=== PATIENT | female | born 1930 | race Caucasian/White ===

== ENCOUNTER 2016-10-10 18:09 | Inpatient (IN) | payer OTHER ==
[~2016-10-10] VITALS: Ht 142.2 cm; Wt 60.3 kg
[~2016-10-10 18:09] MED LIST: ASCO500T16 PO; CHOL100010 PO; CLC100 PO; CYAN500T PO; FERR1TAB13 PO; FURO-85 PO; MULT-506 PO; PANTPAK PO; POTA1POW PO; TOPI25TA99 PO; TYLER650 PO
[2016-10-10] MEDS ORDERED: FENTANYL CITRATE INJ 50 MCG/1 ML 2 ML VIAL IV STA (18:21)
[2016-10-10] MEDS ORDERED: ONDANSETRON INJ 2 MG/ML 2 ML VIAL IV STA (18:21)
[2016-10-10] MEDS ORDERED: FENTANYL 50 MCG/HR TDSY ONE (18:23)
[2016-10-10 18:36] LABS: BASO % 0.3 %; BASO ABS # 0.01 K/uL (0-0.2); COMPLETE YES; IG% 0.7 %; LYMPH ABS # 1.46 K/uL (1.2-3.4); MEAN CELL VOLUME 81.6 fL (80-100); MEAN CORPUSCULAR HEMOGLOBIN 26.5 pg (25-34); MEAN CORPUSCULAR HGB CONC 32.5 g/dl (32-36); MEAN PLATELET VOLUME 11.8 fL (7.4-10.4); MONO % 10.2 %; NEUT % 37.8 %; PLATELET COUNT 234 K/uL (130-400); RED BLOOD COUNT 3.92 M/uL (4.2-5.4); WHITE BLOOD COUNT 3.04 K/uL (4.8-10.8)
[2016-10-10] MEDS ORDERED: CARB0.5D28 OPB ×2 (18:41)
[2016-10-10] MEDS ORDERED: VNTHFA/IN INH (18:41)
[2016-10-10] MEDS ORDERED: MCRK20 PO (18:44)
[2016-10-10 18:47] LABS: PARTIAL THROMBOPLASTIN RATIO 0.9; PROTHROMBIN TIME (PATIENT) 11.1 SECONDS (9.0-12.0)
[2016-10-10 18:59] LABS: BLOOD UREA NITROGEN 33 mg/dl (7-18); BUN/CREATININE RATIO 16.7 (10-20); CALCIUM 8.7 mg/dl (8.5-10.1); CARBON DIOXIDE 26 mmol/L (21-32); CHLORIDE 110 mmol/L (98-107); GLUCOSE 148 mg/dl (70-99); SODIUM 146 mmol/L (136-145)
--- NOTE | 2016-10-10 19:06 | DIAGNOSTIC IMAGING REPORT ---
SINGLE VIEW CHEST CLINICAL HISTORY: Atypical chest pain. Dyspnea. FINDINGS: An AP, portable, upright chest radiograph is compared to study dated 07/28/2016. Correlation is made with chest CT dated 08/11/2016. The examination is degraded by portable technique and patient rotation. The cardiomediastinal silhouette is unremarkable. There is evidence carotid calcification of the thoracic aorta. The mitral annulus is densely calcified. Chronic interstitial thickening is similar to previous, as is elevation of left hemidiaphragm. There is no airspace consolidation or pleural effusion. No pneumothorax is seen. The skeletal structures are osteopenic. Degenerative change and scoliosis are noted in the thoracic spine. IMPRESSION: No acute cardiopulmonary abnormality. Electronically signed by: Quang Gomez M.D. 10/10/2016 7:04 PM Dictated Date/Time: 10/10/2016 7:03 PM
[2016-10-10] MEDS ORDERED: ONDANSETRON INJ 2 MG/ML 2 ML VIAL IV PRN (20:30)
[2016-10-10] MEDS ORDERED: NITROGLYCERIN 0.4 MG SL PER TAB CHARGE SL PRN (20:30)
[2016-10-10] MEDS ORDERED: IV FLUIDS COMPLETED PRN (20:45)
[2016-10-10 21:00] VITALS: BP 130/75; PULSE 90; TEMP 36.7; O2SAT 100; Ht 142.2 cm; Wt 60.3 kg
[2016-10-10] MEDS ORDERED: HEPARIN SOD 5000 UNIT/0.5 ML CARP SQ SCH (21:00)
[2016-10-10] MEDS: DOCUSATE SODIUM 100 MG CAP PO SCH (21:59)
[2016-10-10] MEDS: FERROUS SULFATE 325 MG TAB PO SCH (21:59)
[2016-10-10] MEDS: TOPIRAMATE 25 MG TAB PO SCH (22:00)
[2016-10-10] MEDS: CHOLECALCIFEROL 1000 INTER.UNIT TAB PO SCH (22:00)
[2016-10-10] MEDS: MULTIVITAMIN TAB PO SCH (22:00)
--- NOTE | 2016-10-10 22:07 | History and Physical ---
History & Physical Date & Time of Service: Oct 10, 2016 at 21:50 Chief Complaint: Syncope, Chest Pain Primary Care Physician: Van Ott M.D. History of Present Illness 85 year old female who presents to the ER for chest pain and syncopal event. During my time with the patient, she changes her history multiple times; therefore I do not think she is a good historian. Her roommate entered the room and reports that patient was walking down the finn when she reported she didn't feel good. She also reported chest pain and that she couldn't breathe. He reports she then passed out on the couch. He reports she was unconscious for about one hour until EMS arrived. He reports she was breathing. No seizure like activity or loss of bowel or bladder function. Patient mentions an episode of chest pain two night ago while sleeping. She reports she was awoken from sleep with chest pressure. She reports it lasted for about an hour and resolved on its own. She has chronic lower extremity edema which is unchanged. She denies orthopnea. No abdominal pain, nausea, vomiting, or diarrhea. She denies recent illnesses, fever, or chills. No urinary symptoms. In the ER, initial troponin is negative and EKG does not show any acute ST changes. Past Medical/Surgical History Medical Problems: (1) CKD (chronic kidney disease), stage IV Status: Chronic (2) Diabetes mellitus type 2 Status: Chronic (3) Dyslipidemia Status: Chronic (4) Gastroesophageal reflux disease Status: Chronic (5) Hypothyroidism Status: Chronic (6) PAF (paroxysmal atrial fibrillation) Permanent Comment: chart history of Status: Chronic (7) Parkinson's disease Status: Chronic Surgical Problems: (1) History of appendectomy Status: Resolved (2) History of cholecystectomy Status: Resolved (3) History of mastectomy Permanent Comment: L breast 1950 Status: Resolved Family History FH: cancer MOTHER Stroke SISTER Social History Smoking Status: Former Smoker Alcohol Use: none Housing status: lives with roommate Immunizations History of Influenza Vaccine: Yes Influenza Vaccine Date: Jun 01, 2016 History of Tetanus Vaccine?: Yes Tetanus Immunization Date: Jul 21, 2008 History of Pneumococcal: Yes Pneumococcal Date: Aug 30, 2014 Multi-Drug Resistant Organisms History of MDRO: No Allergies Coded Allergies: Garlic (Verified Allergy, Severe, "raw garlic" airway closes, 08/10/16) Shellfish (Verified Allergy, Severe, FISH = "HIVES" AND "CANT BREATH", ) REPORTS "SEAFOOD" ALLERGY Macrolides and Ketolides (Verified Allergy, Intermediate, ZITHROMAX-HIVES , 08/10/16) Amitriptyline (Verified Allergy, Unknown, _, 08/10/16) Aspirin (Verified Allergy, Unknown, UNKNOWN, 08/10/16) Azithromycin (Verified Allergy, Unknown, HIVES, 08/10/16) Cephalosporins (Verified Allergy, Unknown, UNKNOWN, 08/10/16) [id number] Ethyl Esters (Verified Allergy, Unknown, hives, 08/10/16) Penicillins (Verified Allergy, Unknown, UNKNOWN, 08/10/16) Red Dye (Verified Allergy, Unknown, Unknown rxn, 08/10/16) Tricyclic Antidepressants (Verified Allergy, Unknown, _, 08/10/16) White Fish (Verified Allergy, Unknown, UNKNOWN- "SEAFOOD", 08/10/16) REPORTS "SEAFOOD" ALLERGY NSAIDs (Verified Adverse Reaction, Severe, NO NSAIDS PER MARTEN WISE 08/27, 08/10/16) Metoclopramide (Verified Adverse Reaction, Intermediate, PARKINSON'S RIGIDITY AND LIP TREMOR, 08/10/16) Erythromycin (Verified Adverse Reaction, Unknown, HEADACHE,NAUSEA, ) Home Medications Scheduled Albuterol Hfa (Ventolin Hfa), 2 PUFFS INH QID Ascorbic Acid (Ascorbic Acid), 500 MG PO DAILYBL Carboxymethylcellulose Sodium (Refresh Tears), 1 DROP OPB HS Cholecalciferol (Vitamin D), 1,000 INTER.UNIT PO QPM Cyanocobalamin (Vitamin B-12), 1,000 MCG PO DAILY Docusate Sodium (Docusate Sodium), 1 CAP PO HS Ferrous Sulfate (Kp Ferrous Sulfate), 1 TAB PO BID Furosemide (Lasix), 20 MG PO Q2D Multivitamin (Multivitamin), 1 TAB PO QPM Pantoprazole Sodium (Protonix), 40 MG PO DAILY Potassium Chloride (Klor-Con M20), 20 MEQ PO Q2D Topiramate (Topamax ), 25 MG PO BID Scheduled PRN Carboxymethylcellulose Sodium (Refresh Tears), 1 DROP OPB Q4H PRN for DRY EYES Review of Systems 10 point review of systems was completed with the pertinent positives and negatives noted per the HPI - noted patient likely poor historian Physical Exam Vital Signs Date Time Temp Pulse Resp B/P Pulse Ox O2 Delivery O2 Flow Rate FiO2 10/10/16 21:00 36.7 90 17 130/75 100 Room Air 10/10/16 20:45 77 20 126/70 96 Room Air 10/10/16 20:06 80 20 109/68 98 Room Air 10/10/16 18:21 79 10/10/16 18:09 36.6 80 22 114/70 100 Room Air 10/10/16 18:09 100 Room Air General Appearance: no apparent distress Head: normocephalic Eyes: normal inspection ENT: hearing grossly normal Neck: supple, no JVD Respiratory/Chest: lungs clear, normal breath sounds, no respiratory distress Cardiovascular: regular rate, rhythm, + pertinent finding (+2 edema BLLE) Abdomen/GI: normal bowel sounds, non tender, soft Extremities/Musculoskelatal: normal inspection, no calf tenderness Neurologic/Psych: no motor/sensory deficits, alert, normal mood/affect, oriented x 3 Skin: normal color, warm/dry Diagnostics Laboratory Results Results Past 24 Hours Test 10/10/16 18:25 10/10/16 18:28 10/10/16 21:41 Range/Units White Blood Count 3.04 4.8-10.8 K/uL Red Blood Count 3.92 4.2-5.4 M/uL Hemoglobin 10.4 12.0-16.0 g/dL Hematocrit 32.0 37-47 % Mean Corpuscular Volume 81.6 80-100 fL Mean Corpuscular Hemoglobin 26.5 25-34 pg Mean Corpuscular Hemoglobin Concent 32.5 32-36 g/dl Platelet Count 234 130-400 K/uL Mean Platelet Volume 11.8 7.4-10.4 fL Neutrophils (%) (Auto) 37.8 % Lymphocytes (%) (Auto) 48.0 % Monocytes (%) (Auto) 10.2 % Eosinophils (%) (Auto) 3.0 % Basophils (%) (Auto) 0.3 % Neutrophils # (Auto) 1.15 1.4-6.5 K/uL Lymphocytes # (Auto) 1.46 1.2-3.4 K/uL Monocytes # (Auto) 0.31 0.11-0.59 K/uL Eosinophils # (Auto) 0.09 0-0.5 K/uL Basophils # (Auto) 0.01 0-0.2 K/uL RDW Standard Deviation 55.3 36.4-46.3 fL RDW Coefficient of Variation 18.3 11.5-14.5 % Immature Granulocyte % (Auto) 0.7 % Immature Granulocyte # (Auto) 0.02 0.00-0.02 K/uL Prothrombin Time 11.1 9.0-12.0 SECONDS Prothromb Time International Ratio 1.0 0.9-1.1 Activated Partial Thromboplast Time 24.3 21.0-31.0 SECONDS Partial Thromboplastin Ratio 0.9 Sodium Level 146 136-145 mmol/L Potassium Level 4.0 3.5-5.1 mmol/L Chloride Level 110 98-107 mmol/L Carbon Dioxide Level 26 21-32 mmol/L Anion Gap 10.0 3-11 mmol/L Blood Urea Nitrogen 33 7-18 mg/dl Creatinine 2.00 0.60-1.20 mg/dl Estimated GFR () 25.9 Estimated GFR (Non- 22.4 BUN/Creatinine Ratio 16.7 10-20 Random Glucose 148 70-99 mg/dl Calcium Level 8.7 8.5-10.1 mg/dl Bedside Troponin I 0.000 0-0.045 ng/ml Bedside Glucose 136 70-90 mg/dl Diagnostic Radiology CXR IMPRESSION: No acute cardiopulmonary abnormality. Impression Assessment and Plan CHEST PAIN, SYNCOPE - admit to tele - initial troponin negative, EKG does not show any acute ST changes - continue to cycle cardiac enzymes, resting echo - hx abnormal stress that lead to cardiac cath 07/2012 that shows widely patent coronary arteries - noted allergy to ASA - monitor in tele for arrhythmias - consider PE - will get D. Dimer with next set of cardiac enzymes - as patient was recently started on Lasix, consider orthostasis - check orthostatic BPs and will hold for Lasix for now as renal functions are mildly worse - cardio consult, input appreciated CKD STAGE IV - prior baseline creat was in the mid 1's; recently started on Lasix for diastolic CHF and had noted worsening renal function - follows with nephro who advised to continue Lasix due to the amount of BLLE edema patient had - outpatient creat 1.7 -> 2.0 today; will hold Lasix CHRONIC DIASTOLIC CHF - appears euvolemic - echo 07/2016 - EF 60-65%, mild mitral regurgitation, trace tricuspid regurgitation, grade I diastolic dysfunction - holding Lasix as above MIGRAINES - continue Topamax DVT PROPHYLAXIS - SQ heparin CODE STATUS - Patient is a full code as per my discussion with her. DISPO - The patient will be placed as observation status for now until further work up is complete. VTE Prophylaxis VTE Risk Assessment Done? Y/N: Yes Risk Level: Moderate Note ATTENDING ADDENDUM Record reviewed. Patient interviewed and examined. Care coordinated with SUKHDEV Maria. Please refer to her documentation for patient's history. Briefly, 85 YO female with history of PAF, dyslipidemia, DM, and other problems. Presented to ED with CP, SOB, reported syncope, intermittent palpitations. CP seems to be related to emotional stress. EXAM: General- no acute distress VS- as noted Neck- no JVD Lungs- clear Heart- RRR, II/ sys murmur LSB, no gallop appreciated Abdomen- + BS, soft, nontender Extremities- 1+ pretibial edema, no calf tenderness Neuro- alert DATA: Troponin < 0.015. Other lab studies as noted. CXR - no acute process. EKG performed at 17:35 reviewed and demonstrated NSR at 77 / minute, J-point elevation V3-4. EKG performed at 18:01 reviewed and demonstrated NSR at 86 / minute, baseline artifact, ? slight ST elevation inferiorly, J-point elevation V3-4. EKG performed at 18:11 reviewed and demonstrated NSR at 74 / minute, baseline artifact, slight ST elevation aVF, J-point elevation V2-4. ASSESSMENT AND PLAN: Chest pain associated with emotional stress. EKG's as noted above. Cardiology was consulted for Heart Alert in ED. It was felt that the EKG changes were not significant. Check serial cardiac markers. Check D-dimer to screen for thromboembolic disease. Check echo. Consult Cardiology. Reported syncopal episode. History of PAF. Monitor for arrhythmias. Please refer to LISA Bella's documentation for discussion of other issues. Bairon Joseph MD .
[2016-10-10] MEDS ORDERED: INFLUENZA VIRUS QUAD VACCINE 0.5 ML SYR IM. ONE (23:00)
[2016-10-10] MEDS ORDERED: PNEUMOCOCCAL ADMINISTRATION CHARGE ONE (23:00)
[2016-10-10] MEDS ORDERED: INFLUENZA ADMINISTRATION CHARGE ONE (23:00)
[2016-10-10] MEDS ORDERED: PNEUMOCOCCAL POLYSACCHARIDES 25 MCG/0.5 ML VIAL/SYR IM. ONE (23:00)
[2016-10-10 23:49] VITALS: BP 124/70; PULSE 80; TEMP 36.9; O2SAT 100
[2016-10-10 23:50] VITALS: BP_SYST 125; BP_SYST 164; BP_DIAS 71; BP_DIAS 76
[2016-10-11] VITALS (8 sets, daily range): BP systolic 106–154; BP diastolic 62–78; PULSE 60–99; TEMP 36.5–36.7; O2SAT 93–100
[2016-10-11] MEDS ORDERED: HEPARIN IV LOW DOSE NO BOLUS SCH (01:23)
--- NOTE | 2016-10-11 01:24 | EMERGENCY ROOM VISIT NOTE ---
History Report prepared by Blake: Kaitlyn Stroud Under the Supervision of: Dr. Arsalan Adrian M.D. First contact with patient: 18:08 Chief Complaint: HEART ALERT Stated Complaint: CHEST PAIN, SOB History of Present Illness The patient is a 85 year old female who presents to the Emergency Room with complaints of persistent left sided chest pain that began around 1600 today. Per EMS, the patient woke up from a nap at that time with the pain. She describes the pain as squeezing. She told EMS that the pain radiated in to her neck. She also complained of shortness of breath and dizziness. En route, she was given 324 aspirin and a nitro spray with some relief. Her current discomfort is an 8/10 in severity. The patient notes that she had a heart attack 2 years ago and her symptoms were similar to what she has today. She did not have stents placed and is unsure if she had a catheterization. She is not on Plavix or aspirin. The patient has ankle swelling at baseline which is not worse than normal currently. Source of History: patient, EMS Onset: 1600 today Position: chest (left) Symptom Intensity: 8/10 Quality: other (squeezing) Timing: other (persistent) Modifying Factors (Relieving): other (nitro) Associated Symptoms: + SOB Note: Other symptoms: dizziness Review of Systems See HPI for pertinent positives & negatives. A total of 10 systems reviewed and were otherwise negative. Past Medical & Surgical Medical Problems: (1) CKD (chronic kidney disease), stage IV (2) Diabetes mellitus type 2 (3) Dyslipidemia (4) Gastroesophageal reflux disease (5) Hypothyroidism (6) PAF (paroxysmal atrial fibrillation) (7) Parkinson's disease Surgical Problems: (1) History of appendectomy (2) History of cholecystectomy (3) History of mastectomy Family History Patient reports no known family medical history. Social History Smoking Status: Never Smoker Alcohol Use: none Drug Use: none Marital Status: , in relationship Housing Status: lives with significant other Occupation Status: retired Current/Historical Medications Scheduled Albuterol Hfa (Ventolin Hfa), 2 PUFFS INH QID Ascorbic Acid (Ascorbic Acid), 500 MG PO DAILYBL Carboxymethylcellulose Sodium (Refresh Tears), 1 DROP OPB HS Cholecalciferol (Vitamin D), 1,000 INTER.UNIT PO QPM Cyanocobalamin (Vitamin B-12), 1,000 MCG PO DAILY Docusate Sodium (Docusate Sodium), 1 CAP PO HS Ferrous Sulfate (Kp Ferrous Sulfate), 1 TAB PO BID Furosemide (Lasix), 20 MG PO Q2D Multivitamin (Multivitamin), 1 TAB PO QPM Pantoprazole Sodium (Protonix), 40 MG PO DAILY Potassium Chloride (Klor-Con M20), 20 MEQ PO Q2D Topiramate (Topamax ), 25 MG PO BID Scheduled PRN Carboxymethylcellulose Sodium (Refresh Tears), 1 DROP OPB Q4H PRN for DRY EYES Allergies Coded Allergies: Garlic (Verified Allergy, Severe, "raw garlic" airway closes, 08/10/16) Shellfish (Verified Allergy, Severe, FISH = "HIVES" AND "CANT BREATH", ) REPORTS "SEAFOOD" ALLERGY Macrolides and Ketolides (Verified Allergy, Intermediate, ZITHROMAX-HIVES , 08/10/16) Amitriptyline (Verified Allergy, Unknown, _, 08/10/16) Aspirin (Verified Allergy, Unknown, UNKNOWN, 08/10/16) Azithromycin (Verified Allergy, Unknown, HIVES, 08/10/16) Cephalosporins (Verified Allergy, Unknown, UNKNOWN, 08/10/16) Dclcn-3-Fhcg Ethyl Esters (Verified Allergy, Unknown, hives, 08/10/16) Penicillins (Verified Allergy, Unknown, UNKNOWN, 08/10/16) Red Dye (Verified Allergy, Unknown, Unknown rxn, 08/10/16) Tricyclic Antidepressants (Verified Allergy, Unknown, _, 08/10/16) White Fish (Verified Allergy, Unknown, UNKNOWN- "SEAFOOD", 08/10/16) REPORTS "SEAFOOD" ALLERGY NSAIDs (Verified Adverse Reaction, Severe, NO NSAIDS PER MARTEN WISE 08/27, 08/10/16) Metoclopramide (Verified Adverse Reaction, Intermediate, PARKINSON'S RIGIDITY AND LIP TREMOR, 08/10/16) Erythromycin (Verified Adverse Reaction, Unknown, HEADACHE,NAUSEA, ) Physical Exam Vital Signs Date Time Temp Pulse Resp B/P Pulse Ox O2 Delivery O2 Flow Rate FiO2 10/10/16 20:06 80 20 109/68 98 Room Air 10/10/16 18:21 79 10/10/16 18:09 36.6 80 22 114/70 100 Room Air 10/10/16 18:09 100 Room Air Physical Exam Constitutional: Vital signs reviewed. Eyes: Pupils are equal round reactive to light. Conjunctiva are noninjected. ENT: Pharynx is clear without erythema or exudate. Mucous membranes are moist. Neck supple without meningeal signs. Respiratory: Clear to auscultation bilaterally. Breath sounds are equal bilaterally. Cardiovascular: Regular rate and rhythm. No rubs or gallops. GI: Soft, nondistended, mild left upper quadrant tenderness. Bowel sounds are present. Musculoskeletal: Non-pitting edema to the lower extremities without tenderness. No lower extremity tenderness. Integumentary: No cyanosis. Neurological: The patient is awake and alert. No focal deficits. Psychiatric: Normal affect. Medical Decision & Procedures ER Provider Diagnostic Interpretation: X-ray results as stated below per interpretation by me and the radiologist: SINGLE VIEW CHEST CLINICAL HISTORY: Atypical chest pain. Dyspnea. FINDINGS: An AP, portable, upright chest radiograph is compared to study dated 07/28/2016. Correlation is made with chest CT dated 08/11/2016. The examination is degraded by portable technique and patient rotation. The cardiomediastinal silhouette is unremarkable. There is evidence carotid calcification of the thoracic aorta. The mitral annulus is densely calcified. Chronic interstitial thickening is similar to previous, as is elevation of left hemidiaphragm. There is no airspace consolidation or pleural effusion. No pneumothorax is seen. The skeletal structures are osteopenic. Degenerative change and scoliosis are noted in the thoracic spine. IMPRESSION: No acute cardiopulmonary abnormality. Electronically signed by: Quang Gomez M.D. 10/10/2016 7:04 PM Dictated Date/Time: 10/10/2016 7:03 PM Laboratory Results 10/10/16 18:25 Red Blood Count 3.92, Mean Corpuscular Volume 81.6, Mean Corpuscular Hemoglobin 26.5, Mean Corpuscular Hemoglobin Concent 32.5, Mean Platelet Volume 11.8, Neutrophils (%) (Auto) 37.8, Lymphocytes (%) (Auto) 48.0, Monocytes (%) (Auto) 10.2, Eosinophils (%) (Auto) 3.0, Basophils (%) (Auto) 0.3, Neutrophils # (Auto ) 1.15, Lymphocytes # (Auto) 1.46, Monocytes # (Auto) 0.31, Eosinophils # (Auto ) 0.09, Basophils # (Auto) 0.01 10/10/16 18:25 Test 10/10/16 00:54 10/10/16 18:25 10/10/16 18:28 Creatine Kinase MB 0.6 ng/ml (0.5-3.6) Troponin I < 0.015 ng/ml (0-0.045) White Blood Count 3.04 K/uL (4.8-10.8) Red Blood Count 3.92 M/uL (4.2-5.4) Hemoglobin 10.4 g/dL (12.0-16.0) Hematocrit 32.0 % (37-47) Mean Corpuscular Volume 81.6 fL (80-100) Mean Corpuscular Hemoglobin 26.5 pg (25-34) Mean Corpuscular Hemoglobin Concent 32.5 g/dl (32-36) Platelet Count 234 K/uL (130-400) Mean Platelet Volume 11.8 fL (7.4-10.4) Neutrophils (%) (Auto) 37.8 % Lymphocytes (%) (Auto) 48.0 % Monocytes (%) (Auto) 10.2 % Eosinophils (%) (Auto) 3.0 % Basophils (%) (Auto) 0.3 % Neutrophils # (Auto) 1.15 K/uL (1.4-6.5) Lymphocytes # (Auto) 1.46 K/uL (1.2-3.4) Monocytes # (Auto) 0.31 K/uL (0.11-0.59) Eosinophils # (Auto) 0.09 K/uL (0-0.5) Basophils # (Auto) 0.01 K/uL (0-0.2) RDW Standard Deviation 55.3 fL (36.4-46.3) RDW Coefficient of Variation 18.3 % (11.5-14.5) Immature Granulocyte % (Auto) 0.7 % Immature Granulocyte # (Auto) 0.02 K/uL (0.00-0.02) Prothrombin Time 11.1 SECONDS (9.0-12.0) Prothromb Time International Ratio 1.0 (0.9-1.1) Activated Partial Thromboplast Time 24.3 SECONDS (21.0-31.0) Partial Thromboplastin Ratio 0.9 Anion Gap 10.0 mmol/L (3-11) Estimated GFR () 25.9 Estimated GFR (Non- 22.4 BUN/Creatinine Ratio 16.7 (10-20) Calcium Level 8.7 mg/dl (8.5-10.1) Bedside Troponin I 0.000 ng/ml (0-0.045) Laboratory results as reviewed by me. Medications Administered Medications (Trade) Dose Ordered Sig/Mayte Route Start Time Stop Time Status Last Admin Dose Admin Fentanyl Citrate (Fentanyl Inj) 25 mcg NOW STAT IV 10/10/16 18:21 10/10/16 18:23 DC 10/10/16 18:28 25 MCG Ondansetron HCl (Zofran Inj) 4 mg NOW STAT IV 10/10/16 18:21 10/10/16 18:23 DC 10/10/16 18:29 4 MG ECG Indication: chest pain Rate (beats per minute): 74 Rhythm: normal sinus Findings: no ectopy, other (peaked T waves in the precoridal leads, no ST elevation) Comparison ECG Date: July 2016 Change: no significant change ED Course 1806: The patient was evaluated in room B1. A complete history and physical exam was performed. 1819: Dr. Saunders - Cardiology reviewed the EKGs. Heart alert was cancelled. Ordered Fentanyl Inj 25 mcg IV, Zofran Inj 4 mg IV. 1838: I reassessed the patient. She said that the pain is much better. I discussed test results so far with her. She agrees with the treatment plan. 1917: I discussed the case with Dr. Jake Arreola [facility] Hospitalist. The patient will be evaluated for further management. Medical Decision This is an 85-year-old female who presents with chest pain. Differential diagnosis includes SC, unstable angina, pleurisy, pneumonia, GERD. I did perform a limited focused review of portions of the patient's old chart on the electronic medical record. She was here in July for abdominal pain and shortness of breath. She was discharged home after evaluation. The prehospital EKG was shown to me by the monitor clearing distribution clerk. There were some ST elevations in the inferior leads and I was told that the patient was having active chest pain. I therefore called a heart alert.I did evaluate the patient immediately on arrival as noted above. She is complaining of 8 out of 10 squeezing chest pain rating to her jaw. The patient was placed on a continuous rn cardiac rehab. I did order and personally review the patient's 12-lead EKG and chest x-ray as described above. Her twelve-lead EKG does not demonstrate any ST elevations. Dr. Saunders did review the EKGs and felt that she did not meet criteria for emergent catheterization. I did treat the patient with fentanyl IV as well as Zofran IV after which her chest pain completely resolved. I did order and review the patient's blood work as noted in the electronic medical record. She has chronic anemia and elevation of her creatinine. Troponin is negative. I did reassess the patient. I did discuss the test results with her. I did recommend hospitalization for further evaluation. I did discuss the case with the hospitalist and case finishing machine adjuster. Consults Time Called: 1900 Consulting Physician: Dr. Jake Silva Hospitalist Returned Call: 1917 I discussed the case with him. The patient will be evaluated for further management. Impression Primary Impression: Precordial chest pain Scribe Attestation The scribe's documentation has been prepared under my direct and personally reviewed by me in its entirety. I confirm that the note above accurately reflects all work, treatment, procedures, and medical decision making performed by me. Departure Information Dispostion Being Evaluated By Hospitalist Van Arellano M.D. (PCP) Patient Instructions My [facility]
[2016-10-11] MEDS: HEPARIN 25,000 UNIT/500ML D5W 500 ML IV PRN ×2 (02:03→09:52)
[2016-10-11 06:27] LABS: HEMATOCRIT 28.2 % (37-47); MEAN CELL VOLUME 81.3 fL (80-100); MEAN CORPUSCULAR HEMOGLOBIN 26.2 pg (25-34); MEAN CORPUSCULAR HGB CONC 32.3 g/dl (32-36); MEAN PLATELET VOLUME 11.7 fL (7.4-10.4); PLATELET COUNT 189 K/uL (130-400); RED BLOOD COUNT 3.47 M/uL (4.2-5.4); WHITE BLOOD COUNT 3.75 K/uL (4.8-10.8)
--- NOTE | 2016-10-11 06:42 | DIAGNOSTIC IMAGING REPORT ---
BILATERAL LOWER EXTREMITY VENOUS DOPPLER CLINICAL HISTORY: Elevated D-dimer COMPARISON STUDY: Bilateral lower extremity venous Doppler July 28, 2016. TECHNIQUE: Sonography of the deep venous system of the bilateral lower extremities was performed. Compression and augmentation were evaluated. FINDINGS: The bilateral common femoral, superficial femoral and popliteal veins were compressible. Augmentation was normal. Flow was shown within the deep calf vessels. IMPRESSION: No evidence of deep venous thrombus within the bilateral lower extremities. Electronically signed by: Ky Bentley M.D. 10/11/2016 6:40 AM Dictated Date/Time: 10/11/2016 6:40 AM
[2016-10-11 06:51] LABS: BLOOD UREA NITROGEN 32 mg/dl (7-18); BUN/CREATININE RATIO 18.9 (10-20); CALCIUM 8.9 mg/dl (8.5-10.1); CARBON DIOXIDE 25 mmol/L (21-32); CHLORIDE 112 mmol/L (98-107); GLUCOSE 118 mg/dl (70-99); POTASSIUM 3.8 mmol/L (3.5-5.1); SODIUM 148 mmol/L (136-145)
[2016-10-11 06:56] LABS: CHOLESTEROL 143 mg/dl (0-200); CHOLESTEROL/HDL RATIO 2.2; HDL CHOLESTEROL 64 mg/dl; LDL CHOLESTEROL CALCULATED 66 mg/dl; TRIGLYCERIDES 65 mg/dl (0-150); VERY LOW DENSITY LIPOPROT CALC 13 mg/dl
[2016-10-11 07:16] LABS: ESTIMATED AVERAGE GLUCOSE 148 mg/dl; HA1C FLAG Normal (Normal)
[2016-10-11 08:28] LABS: PARTIAL THROMBOPLASTIN RATIO 1.3
[2016-10-11] MEDS ORDERED: HEPARIN IV BOLUS 4,000 UNIT in SYRINGE 0 ML IV ONE (09:15)
--- NOTE | 2016-10-11 09:53 | Progress Note ---
Medicine Progress Note Date & Time of Visit: Oct 11, 2016 at 09:39. Subjective 85 yoF presented to ER yesterday with reports of CP in left anterior chest wall for about 20 minutes. It happened "when I rolled over in bed" and "felt like someone was reaching in my chest and grabbing my heart and squeezing it." She reports similar chest pain over the past few months that are apparently provoked by stress and anger. She has a strained relationship with her daughter. Also, the last episode of chest pain was last week while she was doing outpatient PT. She states the exertion was not a problem for her, but she thought the therapists were making fun of her, and this made her angry and provoked her pain. She denies any issues with shortness of breath today, however, she is a poor historian and told the admitting providers that she was having SOB. Although there was no hypoxia, tachycardia, calf pain and she has no DVT found on Doppler u/s of both lower extremities, she was placed on a heparin drip empirically. A CTA cannot be done because of poor renal function. She also reports syncope, and was feeling bad prior to passing out. She did start Lasix for leg swelling 3 weeks ago and was orthostatic positive on vitals sign check yesterday. -Cards to see today -TTE pending -am EKG pending Objective Last 8 Hrs Date Time Temp Pulse Resp B/P Pulse Ox O2 Delivery O2 Flow Rate FiO2 10/11/16 08:05 36.6 80 20 106/62 96 Room Air 86 140/78 99 145/76 10/11/16 04:00 36.7 62 16 131/75 97 Room Air 10/11/16 04:00 Room Air Physical Exam: GEN: WNWD, in no acute distress, alert and appropriate, no conversational dyspnea HEENT: NC/AT, PERRL, normal sclerae, MMM CARDIO: reg rate, S1/2 heard without m/g/r, +chest pain TTP on L anterior chest wall, not present on the right side LUNGS: CTA bilaterally, no crackles, rales or wheezes, good diaphragmatic excursion BACK: no paraspinal TTP ABD: soft, non-tender, non-distended, no rebound or guarding, +BS EXTREMITY: RP and DP palpable 2+ bilat, no LE swelling or edema, extremities are warm and well-perfused NEURO: CN 2-12 grossly intact, sensation intact throughout MUSC: 5/5 strength throughout, no gross focal deficits SKIN: warm and dry, she has a vesicular appearing rash on her posterior R shoulder and a petechial rash along her neck on the lower left. Laboratory Results: Last 24 Hours Test 10/10/16 18:25 10/10/16 18:28 10/10/16 21:41 10/10/16 23:54 White Blood Count 3.04 K/uL Red Blood Count 3.92 M/uL Hemoglobin 10.4 g/dL Hematocrit 32.0 % Mean Corpuscular Volume 81.6 fL Mean Corpuscular Hemoglobin 26.5 pg Mean Corpuscular Hemoglobin Concent 32.5 g/dl Platelet Count 234 K/uL Mean Platelet Volume 11.8 fL Neutrophils (%) (Auto) 37.8 % Lymphocytes (%) (Auto) 48.0 % Monocytes (%) (Auto) 10.2 % Eosinophils (%) (Auto) 3.0 % Basophils (%) (Auto) 0.3 % Neutrophils # (Auto) 1.15 K/uL Lymphocytes # (Auto) 1.46 K/uL Monocytes # (Auto) 0.31 K/uL Eosinophils # (Auto) 0.09 K/uL Basophils # (Auto) 0.01 K/uL RDW Standard Deviation 55.3 fL RDW Coefficient of Variation 18.3 % Immature Granulocyte % (Auto) 0.7 % Immature Granulocyte # (Auto) 0.02 K/uL Prothrombin Time 11.1 SECONDS Prothromb Time International Ratio 1.0 Activated Partial Thromboplast Time 24.3 SECONDS Partial Thromboplastin Ratio 0.9 Sodium Level 146 mmol/L Potassium Level 4.0 mmol/L Chloride Level 110 mmol/L Carbon Dioxide Level 26 mmol/L Anion Gap 10.0 mmol/L Blood Urea Nitrogen 33 mg/dl Creatinine 2.00 mg/dl Estimated GFR () 25.9 Estimated GFR (Non- 22.4 BUN/Creatinine Ratio 16.7 Random Glucose 148 mg/dl Calcium Level 8.7 mg/dl Bedside Troponin I 0.000 ng/ml Bedside Glucose 136 mg/dl D-Dimer 830 ug/L FEU Estimated Average Glucose 148 mg/dl Hemoglobin A1c 6.8 % Test 10/10/16 23:55 1/26/17 05:55 10/11/16 06:07 10/11/16 08:03 Creatine Kinase MB Ratio White Blood Count 3.75 K/uL Red Blood Count 3.47 M/uL Hemoglobin 9.1 g/dL Hematocrit 28.2 % Mean Corpuscular Volume 81.3 fL Mean Corpuscular Hemoglobin 26.2 pg Mean Corpuscular Hemoglobin Concent 32.3 g/dl RDW Standard Deviation 54.1 fL RDW Coefficient of Variation 18.2 % Platelet Count 189 K/uL Mean Platelet Volume 11.7 fL Nucleated RBC Absolute Count (auto) 0.03 K/uL Nucleated Red Blood Cells % 0.8 % Sodium Level 148 mmol/L Potassium Level 3.8 mmol/L Chloride Level 112 mmol/L Carbon Dioxide Level 25 mmol/L Anion Gap 11.0 mmol/L Blood Urea Nitrogen 32 mg/dl Creatinine 1.70 mg/dl Est Creatinine Clear Calc Drug Dose 17.8 ml/min Estimated GFR () 31.5 Estimated GFR (Non- 27.2 BUN/Creatinine Ratio 18.9 Random Glucose 118 mg/dl Calcium Level 8.9 mg/dl Creatine Kinase MB 0.7 ng/ml Troponin I < 0.015 ng/ml Triglycerides Level 65 mg/dl Cholesterol Level 143 mg/dl HDL Cholesterol 64 mg/dl LDL Cholesterol, Calculated 66 mg/dl VLDL Cholesterol, Calculated 13 mg/dl Cholesterol/HDL Ratio 2.2 Activated Partial Thromboplast Time 33.4 SECONDS Partial Thromboplastin Ratio 1.3 Assessment & Plan CHEST PAIN, SYNCOPE - initial heart alert in ER, Cards eval and no STEMI - serial cardiac enzymes negative overnight - hx abnormal stress that lead to cardiac cath 07/2012 that shows widely patent coronary arteries - noted allergy to ASA - consider PE - heparin drip started empirically overnight. Will order VQ scan - patient recently started on Lasix and was orthostatic positive with reports of lightheadedness prior to passing out - cardio consult, input appreciated CKD STAGE IV - prior baseline creat was in the mid 1's; recently started on Lasix for diastolic CHF and had noted worsening renal function - follows with nephro who advised to continue Lasix due to the amount of BLLE edema patient had - outpatient creat 1.7 -> 2.0-->1.7 today; will cont holding Lasix in light of orthostasis and syncope- - edema not present in LE today, not fluid overloaded CHRONIC DIASTOLIC CHF - appears euvolemic - echo 07/2016 - EF 60-65%, mild mitral regurgitation, trace tricuspid regurgitation, grade I diastolic dysfunction - holding Lasix as above MIGRAINES - continue Topamax DVT PROPHYLAXIS on heparin drip CODE STATUS: full code [facility] Consultants: [place] Current Inpatient Medications: Current Inpatient Medications Medications (Trade) Dose Ordered Sig/Mayte Route Start Time Stop Time Status Last Admin Dose Admin Acetaminophen (Tylenol Tab) 650 mg Q4H PRN PO 10/10/16 20:30 11/09/16 20:29 Ondansetron HCl (Zofran Inj) 4 mg Q6H PRN IV 10/10/16 20:30 11/09/16 20:29 Nitroglycerin (Nitrostat Tab) 0.4 mg UD PRN SL 10/10/16 20:30 11/09/16 20:29 Ascorbic Acid (Vitamin C Tab) 500 mg DAILYBL PO 10/11/16 11:00 11/10/16 10:59 Cholecalciferol (Vitamin D Tab) 1,000 inter.unit QPM PO 10/10/16 21:00 11/09/16 20:59 10/10/16 22:00 1,000 INTER.UNIT Cyanocobalamin (Vitamin B-12 Tab) 1,000 mcg DAILY PO 10/11/16 09:00 11/10/16 08:59 Docusate Sodium (coLACE CAP) 100 mg HS PO 10/10/16 21:00 11/09/16 20:59 10/10/16 21:59 100 MG Multivitamins (Multivitamin Tab) 1 tab QPM PO 10/10/16 21:00 11/09/16 20:59 10/10/16 22:00 1 TAB Topiramate (Topamax Tab) 25 mg BID PO 10/10/16 21:00 11/09/16 20:59 10/10/16 22:00 25 MG Ferrous Sulfate (Feosol Tab) 325 mg BID PO 10/10/16 21:00 11/09/16 20:59 10/10/16 21:59 325 MG Pantoprazole Sodium (Protonix Tab) 40 mg DAILY PO 10/11/16 09:00 11/10/16 08:59 Miscellaneous 1 ea 1 ea PRN PRN N/A 10/10/16 20:45 10/10/17 20:44 Heparin Sodium/ Dextrose (Heparin 25,000 Unit/500ml D5W) 500 ml @ 14 mls/hr Q24H PRN IV 10/11/16 02:00 11/10/16 01:59 10/11/16 02:03 12 MLS/HR
[2016-10-11] MEDS: PANTOprazole SOD 40 MG TAB PO SCH (10:11)
[2016-10-11] MEDS: TOPIRAMATE 25 MG TAB PO SCH ×2 (10:11→20:30)
[2016-10-11] MEDS: FERROUS SULFATE 325 MG TAB PO SCH ×2 (10:11→20:29)
[2016-10-11] MEDS: CYANOCOBALAMIN 500 MCG TAB (VIT B-12) PO SCH (10:11)
--- NOTE | 2016-10-11 12:37 | DIAGNOSTIC IMAGING REPORT ---
NUCLEAR MEDICINE VENTILATION/PERFUSION SCAN HISTORY: elevated D-dimer, shortness breath, on empiric heparin drip TECHNIQUE: Immediately following the inhalation of 33 mCi of technetium 99 M DTPA and the intravenous demonstration of 6.6 mCi of technetium 9M MAA, the ventilation and perfusion scans were performed in the anterior, posterior, oblique, and lateral views. COMPARISON STUDY: Chest 10/10/2016. FINDINGS: There are no segmental or mismatched defects identified within the lungs. Slight blunting of the left lateral costophrenic sulcus. IMPRESSION: Above findings are consistent with a very low probability scan. Electronically signed by: Rajendra Ryan M.D. 10/11/2016 12:36 PM Dictated Date/Time: 10/11/2016 12:33 PM
[2016-10-11] MEDS: ASCORBIC ACID 500 MG TAB PO SCH (12:48)
--- NOTE | 2016-10-11 14:21 | ECHOCARDIOGRAM REPORT ---
*NOTICE TO RECEIVING [employer] AGENCY This information is strictly Confidential and protected under [place] law. [place] law prohibits you from making any further disclosure of this information unless further disclosure is expressly permitted by the written consent of the person to whom it pertains or is authorized by law. A general authorization for the release of medical or other information is not sufficient for this purpose. Hospital accepts no responsibility if the information is made available to any other person, INCLUDING THE PATIENT. Interpretation Summary * Name: OSBALDO WYLIE Study Date: 10/11/2016 10:22 AM BP: 145/76 mmHg * Patient Location: [facility] HR: 85 * : 1930 (M/d/yyyy) Gender: Female Height: 56 in * Age: 85 yrs Ethnicity: [place] Weight: 132 lb * Ordering Physician: Ebonie Bella * Performed By: Sloan Tejada RCS * * Reason For Study: Syncope * BSA: 1.5 m2 * Compared to prior study, there is no significant change. * -- Conclusions -- * The left ventricle is normal in size. * There is moderate concentric left ventricular hypertrophy. * The basal septum is thickened and angulated consistent with sigmoid septum. * The left ventricular wall motion is normal. * Left ventricular systolic function is normal. * Ejection Fraction = 60-65%. * Grade I diastolic dysfunction, (abnormal relaxation pattern). * Aortic valve sclerosis mild, without significant aortic valvular stenosis. * There is moderate to severe mitral annular calcification. * There is mild to moderate mitral regurgitation. * There is trace tricuspid regurgitation. Procedure Details * A complete two-dimensional transthoracic echocardiogram was performed (2D, M-mode, Doppler and color flow Doppler). Left Ventricle * The left ventricle is normal in size. * There is moderate concentric left ventricular hypertrophy. * The basal septum is thickened and angulated consistent with sigmoid septum. * Ejection Fraction = 60-65%. * Left ventricular systolic function is normal. * The left ventricular wall motion is normal. Right Ventricle * The right ventricle is normal in size and function. Atria * The left atrial size is normal. * Right atrial size is normal. * No ASD detected; PFO is not assessed. Mitral Valve * There is moderate to severe mitral annular calcification. * There is no mitral valve stenosis. * There is mild to moderate mitral regurgitation. Tricuspid Valve * The tricuspid valve anatomy is normal. * There is no tricuspid stenosis. * There is trace tricuspid regurgitation. * Doppler findings do not suggest pulmonary hypertension. Aortic Valve * The aortic valve is trileaflet. * Aortic valve sclerosis mild, without significant aortic valvular stenosis. * No aortic regurgitation is present. Pulmonic Valve * The pulmonic valve is not well visualized. Great Vessels * The aortic root is normal size. Pericardium/Pleural * There is no pericardial effusion. Great Vessels * Normal inferior vena cava diameter and respiratory variation suggests normal central venous pressure. Left Ventricular Diastolic Function * Grade I diastolic dysfunction, (abnormal relaxation pattern). MMode 2D Measurements and Calculations IVSd 0.92 cm IVSs 1.2 cm LVIDd 4.2 cm LVIDs 2.6 cm LVPWd 1.0 cm LVPWs 1.2 cm IVS/LVPW 0.89 FS 39.2 % EDV(Teich) 80.1 ml ESV(Teich) 24.1 ml EF(Teich) 70.0 % EDV(cubed) 75.9 ml ESV(cubed) 17.1 ml EF(cubed) 77.5 % % IVS thick 25.5 % % LVPW thick 13.8 % LV mass(C)d 135.3 grams LV mass(C)dI 90.9 grams/m\S\2 LV mass(C)s 85.3 grams LV mass(C)sI 57.3 grams/m\S\2 CO(Teich) 4.5 l/min CI(Teich) 3.1 l/min/m\S\2 SV(Teich) 56.0 ml SI(Teich) 37.7 ml/m\S\2 CO(cubed) 4.8 l/min CI(cubed) 3.2 l/min/m\S\2 SV(cubed) 58.8 ml SI(cubed) 39.5 ml/m\S\2 Ao root diam 3.1 cm Ao root area 7.6 cm\S\2 ACS 1.5 cm LA dimension 3.3 cm LA/Ao 1.0 LVAd ap4 22.8 cm\S\2 LVLd ap4 7.1 cm EDV(MOD-sp4) 60.0 ml LVAs ap4 9.1 cm\S\2 LVLs ap4 4.9 cm ESV(MOD-sp4) 14.5 ml EF(MOD-sp4) 75.8 % LVAd ap2 17.6 cm\S\2 LVLd ap2 6.6 cm EDV(MOD-sp2) 38.6 ml LVAs ap2 9.7 cm\S\2 LVLs ap2 5.8 cm ESV(MOD-sp2) 14.5 ml EF(MOD-sp2) 62.4 % CO(MOD-sp4) 3.7 l/min CI(MOD-sp4) 2.5 l/min/m\S\2 SV(MOD-sp4) 45.5 ml SI(MOD-sp4) 30.6 ml/m\S\2 CO(MOD-sp2) 2.0 l/min CI(MOD-sp2) 1.3 l/min/m\S\2 SV(MOD-sp2) 24.1 ml SI(MOD-sp2) 16.2 ml/m\S\2 Doppler Measurements and Calculations MV E max sher 110.1 cm/sec MV A max sher 132.9 cm/sec MV E/A 0.83 MV P1/2t max sher 117.3 cm/sec MV P1/2t 69.8 msec MVA(P1/2t) 3.2 cm\S\2 MV dec slope 492.3 cm/sec\S\2 MV dec time 0.23 sec Ao V2 max 152.2 cm/sec Ao max PG 9.3 mmHg Ao max PG (full) 4.2 mmHg LV V1 max PG 5.0 mmHg LV V1 max 112.3 cm/sec PA V2 max 107.1 cm/sec PA max PG 4.6 mmHg TR max sher 218.6 cm/sec
[2016-10-11] MEDS ORDERED: DOBUTamine HCL 12.5 MG/ML 20 ML VIAL ONE (14:59)
[2016-10-11] MEDS ORDERED: ATROPINE SULFATE 0.1 MG/ML 5ML SYR ONE (14:59)
[2016-10-11] MEDS ORDERED: METOPROLOL TARTRATE 1 MG/ML VIAL ONE (14:59)
--- NOTE | 2016-10-11 15:05 | CARDIOLOGY CONSULTATION ---
DATE OF CONSULTATION: 10/11/2016 DATE OF CONSULTATION: 10/11/2016. The patient seen and examined. Chart, medications, telemetry reviewed. REFERRING: Dr. Georges. INDICATIONS: Possible chest pain. HISTORY OF PRESENT ILLNESS: The patient is an 85-year-old female extremely poor historian and is seen and examined after admission last evening. The patient's reports of reason for admission vary depending on interrogator. Per her is unable information as to the events of last evening but her roommate notes she had chest pain yesterday, reports demonstrated possible syncopal event though this was confirmed on my questioning,. She was hospitalized recently for lower extremity edema and possible diastolic heart failure in July 2016. Currently, denies any chest pain or discomfort. Notes no dizziness or lightheadedness. Notes no syncope or near syncope. Feels weight has been stable only eats one meal per day, is chronically anemic dating back multiple years by laboratory and past admission data. She feels she may have had a myocardial infarction in the past though prior diagnostic cardiac catheterization in 2011 revealed widely patent coronary arteries without obstruction. Today, the patient denies fevers, chills or sweats. Notes no cough. Notes no melena, hematochezia, dysuria or hematuria. Notes no edema currently. ALLERGIES: MULTIPLE AND PER LIST INCLUDE GARLIC, SHELLFISH, MACROLIDES, KETOLIDES, AMITRIPTYLINE, ASPIRIN, AZITHROMYCIN, AND CEPHALOSPORINS, OMEGA 3 FISH OILS, PENICILLIN, RED DYE, TRICYCLICS, WHITE FISH, NONSTEROIDALS, CLOMIPRAMINE, AND ERYTHROMYCIN. MEDICATIONS: Prior to hospitalization were albuterol 2 puffs q.i.d., ascorbic acid 500 mg daily, cholecalciferol 1000 units q.p.m., vitamin B12 1000 mcg per day, docusate 1 tablet at bedtime, ferrous sulfate 1 tablet b.i.d., furosemide 20 mg every other day, multivitamin q.p.m., Protonix 40 mg p.o. daily, potassium chloride 20 mEq every other day, Topamax 25 mg b.i.d. PAST SURGICAL HISTORY: Notable for prior appendectomy, cholecystectomy and partial mastectomy. PAST MEDICAL HISTORY: As noted above includes chronic renal insufficiency stage III-IV, type 2 diabetes mellitus, dyslipidemia, gastroesophageal reflux, remote history of paroxysmal atrial fibrillation per chart, though no recent documented events, history of Parkinson's disease per report. PHYSICAL EXAMINATION: GENERAL: The patient is a thin elderly appearing female, denying any complaints. VITAL SIGNS: Heart rate 77, blood pressure is 154/78. HEAD, EYES, EARS, NOSE, AND THROAT EXAMINATION: Normocephalic, atraumatic. Nares without discharge. Throat was clear. NECK: Supple without thyromegaly or lymphadenopathy. There are no carotid bruits. LUNGS: Clear to auscultation. CARDIOVASCULAR EXAMINATION: Regular with normal S1, S2. There is no murmur, gallop or rub. PMI is nondisplaced. ABDOMEN: Soft, nontender, no hepatojugular reflux. EXTREMITIES: Without cyanosis or clubbing. There is no peripheral edema. There are intact distal pulses. DATA: EKG today reveals sinus rhythm with atrial ectopy. LABORATORY STUDIES: Sodium is 148, potassium is 3.8, chloride is 112, bicarbonate is 25, BUN is 32, creatinine is 1.7. White cell count 3.75, hemoglobin is 9.1, hematocrit 28.2, platelet count is 189,000. CK-MB, troponins have been negative since admission. Cholesterol is 143 with LDL 66. IMPRESSION: An elderly 85-year-old female with prior history of evaluations after abnormal stress testing with cardiac catheterization 2011 demonstrating normal coronaries presents with a presentation of chest discomfort, possible syncopal event in the setting of emotional stressors with patient extremely poor historian. Current laboratory studies and EKGs do not reflect acute coronary syndrome. Attempted to delineate patient's symptoms by discussion though found it difficult to drive and approach. PLAN: Will be refer for dobutamine stress echocardiography with low threshold for adding low dose beta liz regimen. Would consider discontinuing diuretics. Echocardiogram today demonstrates moderately hypertrophied ventricle with normal left ventricular systolic function, no significant valvular disease. Reviewed studies have include negative venous Doppler study and VQ scan, IV heparin has been discontinued with anticipated dobutamine stress echocardiography later today.
[2016-10-11 16:44] LABS: PARTIAL THROMBOPLASTIN RATIO 1.6
--- NOTE | 2016-10-11 19:00 | DOBUTAMINE ECHO ---
*NOTICE TO RECEIVING [employer] AGENCY This information is strictly Confidential and protected under [place] law. [place] law prohibits you from making any further disclosure of this information unless further disclosure is expressly permitted by the written consent of the person to whom it pertains or is authorized by law. A general authorization for the release of medical or other information is not sufficient for this purpose. Hospital accepts no responsibility if the information is made available to any other person, INCLUDING THE PATIENT. Interpretation Summary * Name: OSBALDO WYLIE Study Date: 10/11/2016 04:12 PM BP: 136/66 mmHg * Patient Location: C.2T\S\S229\S\1 HR: 68 * : 1930 (M/d/yyy) Gender: Female Height: 56 in * Age: 85 yrs Ethnicity: [place] Weight: 132 lb * Ordering Physician: Ant Rizo * Performed By: Kelin Sterling RCS * * Reason For Study: CHEST PAIN * BSA: 1.5 m2 * STRESS STUDY: Normal pharmacologic stress echocardiogram. No echocardiographic or ECG evidence of myocardial ischemia having achieved heart rate adequate for diagnostic purposes. * -- Conclusions -- * Ejection Fraction = 60-65%. * Resting wall motion: Normal. Stress wall motion: Appropriate increase in Left ventricular systolic function and decrease in cavity size. No stress induced segmental wall motion abnormalities. * The left ventricular ejection fraction increases normally with stress. The left ventricular end-systolic cavity size reduces post-stress (normal response). The left ventricular wall motion with stress is normal. * Stress ECG: No ST changes. No arrhythmias. Procedure Details * DOBUTAMINE ECHO, CPT#79640 Left Ventricle * The left ventricle is normal in size. * There is moderate concentric left ventricular hypertrophy. * Ejection Fraction = 60-65%. * Resting wall motion: Normal. Stress wall motion: Appropriate increase in Left ventricular systolic function and decrease in cavity size. No stress induced segmental wall motion abnormalities. * The left ventricular ejection fraction increases normally with stress. The left ventricular end-systolic cavity size reduces post-stress (normal response). The left ventricular wall motion with stress is normal. Stress Parameters * The baseline ECG displays normal sinus rhythm. * Stress ECG: No ST changes. No arrhythmias. * The stress portion of this study was personally supervised by the undersigned interpreting physician. * Rest heart rate was '68' BPM. * Rest blood pressure was '136/66' * Maximum heart rate achieved was 116 bpm. * Maximum heart rate was 85 % of maximum age-predicted heart rate. * Maximum blood pressure was '182/42' * Maximum Dobutamine infusion rate was '20' mcg/kg/min. * A total of 0.125 mg of intravenous Atropine was used to supplement Dobutamine for heart rate response. * Dobutamine infusion was terminated due to achieving target heart rate * A total of 5.0 mg of IV Metoprolol was administered to reverse Dobutamine-induced tachycardia. * Normal heart rate and blood pressure response to dobutamine infusion.
[2016-10-11] MEDS: DOCUSATE SODIUM 100 MG CAP PO SCH (20:29)
[2016-10-11] MEDS: MULTIVITAMIN TAB PO SCH (20:30)
[2016-10-11] MEDS: CHOLECALCIFEROL 1000 INTER.UNIT TAB PO SCH (20:31)
[2016-10-12] VITALS (7 sets, daily range): BP systolic 96–165; BP diastolic 56–79; PULSE 65–90; TEMP 36.5; O2SAT 95–98
[2016-10-12] MEDS: ACETAMINOPHEN 325 MG TAB PO PRN (03:39)
[2016-10-12 06:22] LABS: MEAN CELL VOLUME 81.4 fL (80-100); MEAN CORPUSCULAR HEMOGLOBIN 26.5 pg (25-34); MEAN CORPUSCULAR HGB CONC 32.5 g/dl (32-36); MEAN PLATELET VOLUME 11.7 fL (7.4-10.4); PLATELET COUNT 194 K/uL (130-400); RED BLOOD COUNT 3.44 M/uL (4.2-5.4); WHITE BLOOD COUNT 3.58 K/uL (4.8-10.8)
[2016-10-12 07:06] LABS: BUN/CREATININE RATIO 18.5 (10-20); CALCIUM 8.8 mg/dl (8.5-10.1); CREATININE 1.7 mg/dl (0.60-1.20); POTASSIUM 3.6 mmol/L (3.5-5.1)
[2016-10-12] MEDS: PANTOprazole SOD 40 MG TAB PO SCH (09:23)
[2016-10-12] MEDS: FERROUS SULFATE 325 MG TAB PO SCH ×2 (09:23→19:31)
[2016-10-12] MEDS: TOPIRAMATE 25 MG TAB PO SCH ×2 (09:23→19:31)
[2016-10-12] MEDS: CYANOCOBALAMIN 500 MCG TAB (VIT B-12) PO SCH (09:24)
--- NOTE | 2016-10-12 11:05 | Psychiatric Consultation ---
Consultation Identifying Data Ms. Holloway is an 85 yo female who resides with a male item processing clerk in [facility]. She was admitted to the medical service for history of PAF, dyslipidemia, DM, and other problems after presenting to the ED with CP, SOB, reported syncope , intermittent palpitations. There was suggestion that perhaps her CP was in part related to emotional stress. Chief Complaint "I assure you I'm not depressed". History of Present Illness Patient met her item processing clerk while living at the [facility] and 2 years or so ago they left together as he maintained a house trailer (although today she refers to it as a mobile home). His sister is involved as her payee and reportedly assists with filling her pill minder. Mini Cog 2/5 last pm for impaired recall and minor error on clock, today is oriented and good memory for names, states his sister is Lori Alia. I attempted to reach her item processing clerk as she did sign a release last pm but was only able to leave a message. She scored 2 on PHQ-9, only endorsing fatigue which is likely related to her medical issues. She states that she never learned to drive and represents that she does the bulk of the cooking and baking. Her boyfriend is 60 yo, reports he had a recent knee injury but takes her to any appointments, grills, gets groceries. Past Psychiatric History denies any psych history. No suicide attempts. Past Medical/Surgical History Problem List: (1) Chest pain, atypical (2) Syncope (3) Diabetes mellitus type 2 (4) Dyslipidemia (5) PAF (paroxysmal atrial fibrillation) (6) Gastroesophageal reflux disease (7) CKD (chronic kidney disease), stage IV (8) Hypothyroidism (9) Parkinson's disease (10) History of appendectomy (11) History of mastectomy (12) History of cholecystectomy Allergies Allergies: Coded Allergies: Garlic (Verified Allergy, Severe, "raw garlic" airway closes, 08/10/16) Shellfish (Verified Allergy, Severe, FISH = "HIVES" AND "CANT BREATH", ) REPORTS "SEAFOOD" ALLERGY Macrolides and Ketolides (Verified Allergy, Intermediate, ZITHROMAX-HIVES , 08/10/16) Amitriptyline (Verified Allergy, Unknown, _, 08/10/16) Aspirin (Verified Allergy, Unknown, UNKNOWN, 08/10/16) Azithromycin (Verified Allergy, Unknown, HIVES, 08/10/16) Cephalosporins (Verified Allergy, Unknown, UNKNOWN, 08/10/16) [id number] Ethyl Esters (Verified Allergy, Unknown, hives, 08/10/16) Penicillins (Verified Allergy, Unknown, UNKNOWN, 08/10/16) Red Dye (Verified Allergy, Unknown, Unknown rxn, 08/10/16) Tricyclic Antidepressants (Verified Allergy, Unknown, _, 08/10/16) White Fish (Verified Allergy, Unknown, UNKNOWN- "SEAFOOD", 08/10/16) REPORTS "SEAFOOD" ALLERGY NSAIDs (Verified Adverse Reaction, Severe, NO NSAIDS PER MARTEN WISE 08/27, 08/10/16) Metoclopramide (Verified Adverse Reaction, Intermediate, PARKINSON'S RIGIDITY AND LIP TREMOR, 08/10/16) Erythromycin (Verified Adverse Reaction, Unknown, HEADACHE,NAUSEA, ) Home Medications Scheduled Albuterol Hfa (Ventolin Hfa), 2 PUFFS INH QID Ascorbic Acid (Ascorbic Acid), 500 MG PO DAILYBL Carboxymethylcellulose Sodium (Refresh Tears), 1 DROP OPB HS Cholecalciferol (Vitamin D), 1,000 INTER.UNIT PO QPM Cyanocobalamin (Vitamin B-12), 1,000 MCG PO DAILY Docusate Sodium (Docusate Sodium), 1 CAP PO HS Ferrous Sulfate (Kp Ferrous Sulfate), 1 TAB PO BID Furosemide (Lasix), 20 MG PO Q2D Multivitamin (Multivitamin), 1 TAB PO QPM Pantoprazole Sodium (Protonix), 40 MG PO DAILY Potassium Chloride (Klor-Con M20), 20 MEQ PO Q2D Topiramate (Topamax ), 25 MG PO BID Scheduled PRN Carboxymethylcellulose Sodium (Refresh Tears), 1 DROP OPB Q4H PRN for DRY EYES Family History FH: cancer MOTHER Stroke SISTER denies Alcohol Use Alcohol Use In Past 12 Months: No Substance History denies Personal History Born in: [facility] Development: 5 bros, 3 sisters (1 each living) Education: graduated from high school ([employer]) 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 Examination Vital Signs Vital Signs Past 12 Hours Date Time Temp Pulse Resp B/P Pulse Ox O2 Delivery O2 Flow Rate FiO2 10/12/16 07:11 36.5 65 20 96/56 98 Room Air 10/12/16 00:47 Room Air 10/11/16 23:08 36.7 60 18 115/65 99 Room Air Laboratory Results Last 24 Hours Test 10/11/16 16:29 10/11/16 20:20 10/12/16 05:35 Activated Partial Thromboplast Time 40.4 SECONDS Partial Thromboplastin Ratio 1.6 Bedside Glucose 138 mg/dl White Blood Count 3.58 K/uL Red Blood Count 3.44 M/uL Hemoglobin 9.1 g/dL Hematocrit 28.0 % Mean Corpuscular Volume 81.4 fL Mean Corpuscular Hemoglobin 26.5 pg Mean Corpuscular Hemoglobin Concent 32.5 g/dl RDW Standard Deviation 54.1 fL RDW Coefficient of Variation 18.2 % Platelet Count 194 K/uL Mean Platelet Volume 11.7 fL Sodium Level 146 mmol/L Potassium Level 3.6 mmol/L Chloride Level 112 mmol/L Carbon Dioxide Level 22 mmol/L Anion Gap 12.0 mmol/L Blood Urea Nitrogen 32 mg/dl Creatinine 1.70 mg/dl Est Creatinine Clear Calc Drug Dose 17.8 ml/min Estimated GFR () 31.5 Estimated GFR (Non- 27.2 BUN/Creatinine Ratio 18.5 Random Glucose 108 mg/dl Calcium Level 8.8 mg/dl Mental Examination During interview pt is: alert and oriented (to place, self, general time) Appearance: appropriately groomed Eye contact is: good Motor behavior is: no abnormal motor movements Speech: normal in rate, rhythm & volume Affect: euthymic Mood is: other ("I feel great") Thought process: clear, coherent Thought content: reality based without delusions Suicidal thought are: denied Homicidal thoughts are: denied Hallucinations: denies auditory, denies visual Cognition: attention grossly intact, language grossly intact Intelligence estimated to be: consistent with level of education Insight: limited Judgement: limited Impression / Recommendations Impression 85 yo female with no prior psych history, denies depression, payee expressed concerns about depression, ?anxiety component to escalation in CP complaints. Risk Factors Assessment Access to guns: No Recommendations patient is currently without delirium and psychosis and denies SI and also subclinical on depression screen she declines any medication for anxiety at this time, would avoid benzos given age and fall risk, if primary team/cards feels an agent is indicated would suggest Buspar 5 mg am and afternoon to start, again patient currently declines LM for item processing clerk to explore any additional concerns, if he/his sister express additional concerns about self care at home would suggest AAA assessment/ involvement
[2016-10-12] MEDS: ASCORBIC ACID 500 MG TAB PO SCH (11:52)
[2016-10-12] MEDS: MULTIVITAMIN TAB PO SCH (20:33)
[2016-10-12] MEDS: CHOLECALCIFEROL 1000 INTER.UNIT TAB PO SCH (20:33)
[2016-10-12] MEDS: DOCUSATE SODIUM 100 MG CAP PO SCH (20:33)
[2016-10-12] MEDS ORDERED: HEPARIN SOD 5000 UNIT/0.5 ML CARP SQ ONE (22:18)
--- NOTE | 2016-10-12 22:24 | Progress Note ---
Medicine Progress Note Date & Time of Visit: Oct 12, 2016 at 22:14. Subjective Ms. Holloway is doing well today I first saw her at the nurses station, sitting behind the desk and chatting with the nurses. I walked her back to her room to perform an examination She states she is feeling fine and wants to go home. 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 She denies chest pain, shortness of breath, lightheadedness or any other symptoms today Objective Last 8 Hrs Date Time Temp Pulse Resp B/P Pulse Ox O2 Delivery O2 Flow Rate FiO2 10/12/16 19:20 Room Air 10/12/16 16:00 Room Air 10/12/16 15:39 130/79 10/12/16 15:38 36.5 90 18 165/79 98 Room Air Physical Exam: GEN: WNWD, in no acute distress, alert and appropriate, no conversational dyspnea HEENT: NC/AT, PERRL, normal sclerae, MMM CARDIO: reg rate, S1/2 heard without m/g/r, +chest pain TTP on L anterior chest wall, not present on the right side LUNGS: CTA bilaterally, no crackles, rales or wheezes, good diaphragmatic excursion ABD: soft, non-tender, non-distended, no rebound or guarding, +BS EXTREMITY: RP and DP palpable 2+ bilat, no LE swelling or edema, extremities are warm and well-perfused NEURO: CN 2-12 grossly intact, sensation intact throughout MUSC: 5/5 strength throughout, no gross focal deficits, ambulatory SKIN: warm and dry Laboratory Results: Last 24 Hours Test 10/12/16 05:35 White Blood Count 3.58 K/uL Red Blood Count 3.44 M/uL Hemoglobin 9.1 g/dL Hematocrit 28.0 % Mean Corpuscular Volume 81.4 fL Mean Corpuscular Hemoglobin 26.5 pg Mean Corpuscular Hemoglobin Concent 32.5 g/dl RDW Standard Deviation 54.1 fL RDW Coefficient of Variation 18.2 % Platelet Count 194 K/uL Mean Platelet Volume 11.7 fL Sodium Level 146 mmol/L Potassium Level 3.6 mmol/L Chloride Level 112 mmol/L Carbon Dioxide Level 22 mmol/L Anion Gap 12.0 mmol/L Blood Urea Nitrogen 32 mg/dl Creatinine 1.70 mg/dl Est Creatinine Clear Calc Drug Dose 17.8 ml/min Estimated GFR () 31.5 Estimated GFR (Non- 27.2 BUN/Creatinine Ratio 18.5 Random Glucose 108 mg/dl Calcium Level 8.8 mg/dl Assessment & Plan CHEST PAIN, SYNCOPE - initial heart alert in ER, Cards eval and no STEMI - serial cardiac enzymes negative overnight - hx abnormal stress that lead to cardiac cath 07/2012 that shows widely patent coronary arteries - noted allergy to ASA - VQ scan-->low prob in setting of no SOB or hypoxia-->heparin drip was stopped - patient recently started on Lasix and was orthostatic positive with reports of lightheadedness prior to passing out--cont holding lasix - cardio consult-->stress test was negative yesterday -syncope is questionable with the patient being a very poor historian and having different versions of what happened CKD STAGE IV - prior baseline creat was in the mid 1's; recently started on Lasix for diastolic CHF and had noted worsening renal function - follows with nephro who advised to continue Lasix due to the amount of BLLE edema patient had - outpatient creat 1.7 -> 2.0-->1.7 today-likely her baseline; will cont holding Lasix as edema not present CHRONIC DIASTOLIC CHF - appears euvolemic - echo 07/2016 - EF 60-65%, mild mitral regurgitation, trace tricuspid regurgitation, grade I diastolic dysfunction - holding Lasix as above MIGRAINES - continue Topamax DVT PROPHYLAXIS Heparin CODE STATUS: full code Dispo-there are concerns per the family that the patient is urinating on herself and not compliant with showers or taking her meds, etc. The Office of Aging has been out to her house and her continuous pillowcase cutter, Ruth, is aware of her current admission. PT recommends SNF and family concerned for her, however, psych deemed her fine with no issues. If she wants to leave she can go home with Home Health for PT. DO Ricardo Sanchez Hospitalist Consultants: Cards Current Inpatient Medications: Current Inpatient Medications Medications (Trade) Dose Ordered Sig/Mayte Route Start Time Stop Time Status Last Admin Dose Admin Acetaminophen (Tylenol Tab) 650 mg Q4H PRN PO 10/10/16 20:30 11/09/16 20:29 10/12/16 03:39 650 MG Ondansetron HCl (Zofran Inj) 4 mg Q6H PRN IV 10/10/16 20:30 11/09/16 20:29 Nitroglycerin (Nitrostat Tab) 0.4 mg UD PRN SL 10/10/16 20:30 11/09/16 20:29 Ascorbic Acid (Vitamin C Tab) 500 mg DAILYBL PO 10/11/16 11:00 11/10/16 10:59 10/12/16 11:52 500 MG Cholecalciferol (Vitamin D Tab) 1,000 inter.unit QPM PO 10/10/16 21:00 11/09/16 20:59 10/12/16 20:33 1,000 INTER.UNIT Cyanocobalamin (Vitamin B-12 Tab) 1,000 mcg DAILY PO 10/11/16 09:00 11/10/16 08:59 10/12/16 09:24 1,000 MCG Docusate Sodium (coLACE CAP) 100 mg HS PO 10/10/16 21:00 11/09/16 20:59 10/12/16 20:33 100 MG Multivitamins (Multivitamin Tab) 1 tab QPM PO 10/10/16 21:00 11/09/16 20:59 10/12/16 20:33 1 TAB Topiramate (Topamax Tab) 25 mg BID PO 10/10/16 21:00 11/09/16 20:59 10/12/16 19:31 25 MG Ferrous Sulfate (Feosol Tab) 325 mg BID PO 10/10/16 21:00 11/09/16 20:59 10/12/16 19:31 325 MG Pantoprazole Sodium (Protonix Tab) 40 mg DAILY PO 10/11/16 09:00 11/10/16 08:59 10/12/16 09:23 40 MG Miscellaneous (Iv Fluids Completed) 1 ea PRN PRN N/A 10/10/16 20:45 10/10/17 20:44
[2016-10-13] MEDS: HEPARIN SOD 5000 UNIT/0.5 ML CARP SQ SCH ×3 (05:34→22:16)
[2016-10-13 06:02] LABS: BUN/CREATININE RATIO 21.7 (10-20); CALCIUM 8.6 mg/dl (8.5-10.1); CREATININE 1.9 mg/dl (0.60-1.20); POTASSIUM 3.6 mmol/L (3.5-5.1)
[2016-10-13 07:27] VITALS: BP 115/69; PULSE 73; TEMP 36.6; O2SAT 97
[2016-10-13] MEDS: PANTOprazole SOD 40 MG TAB PO SCH (09:29)
[2016-10-13] MEDS: FERROUS SULFATE 325 MG TAB PO SCH ×2 (09:29→20:33)
[2016-10-13] MEDS: TOPIRAMATE 25 MG TAB PO SCH ×2 (09:30→20:33)
[2016-10-13] MEDS: CYANOCOBALAMIN 500 MCG TAB (VIT B-12) PO SCH (09:30)
[2016-10-13] MEDS: ASCORBIC ACID 500 MG TAB PO SCH (11:10)
[2016-10-13] MEDS ORDERED: NURSING VERBAL MED ORDER ONE (12:15)
[2016-10-13] MEDS: ACETAMINOPHEN 500 MG TAB PO SCH ×2 (12:35→20:35)
[2016-10-13] MEDS ORDERED: ACETAMINOPHEN 500 MG TAB PO SCH (14:00)
[2016-10-13 15:17] VITALS: BP 114/71; PULSE 78; TEMP 36.6; O2SAT 96
[2016-10-13 16:00] VITALS: O2SAT 96
[2016-10-13] MEDS: DOCUSATE SODIUM 100 MG CAP PO SCH (20:35)
[2016-10-13] MEDS: MULTIVITAMIN TAB PO SCH (20:36)
[2016-10-13] MEDS: CHOLECALCIFEROL 1000 INTER.UNIT TAB PO SCH (20:36)
--- NOTE | 2016-10-13 23:15 | Progress Note ---
Medicine Progress Note Date & Time of Visit: Oct 13, 2016 at 10:53. Subjective Sleeping when I arrived Woke up and was alert and appropriate Denies chest pain or shortness of breath Tolerating PO Feels OK to stay thorugh the day here at least. Objective Last 8 Hrs Date Time Temp Pulse Resp B/P Pulse Ox O2 Delivery O2 Flow Rate FiO2 10/13/16 09:00 Room Air 10/13/16 07:27 36.6 73 18 115/69 97 3.0 Physical Exam: GEN: WNWD, in no acute distress, alert and appropriate, no conversational dyspnea HEENT: NC/AT, normal sclerae, MMM CARDIO: reg rate, S1/2 heard without m/g/r LUNGS: CTA bilaterally, no crackles, rales or wheezes, good diaphragmatic excursion ABD: soft, non-tender, non-distended, no rebound or guarding, +BS EXTREMITY: no LE swelling or edema, extremities are warm and well-perfused NEURO: CN 2-12 grossly intact, sensation intact throughout MUSC: 5/5 strength throughout, no gross focal deficits, ambulatory SKIN: warm and dry Laboratory Results: Last 24 Hours Test 10/13/16 05:01 Sodium Level 144 mmol/L Potassium Level 3.6 mmol/L Chloride Level 113 mmol/L Carbon Dioxide Level 21 mmol/L Anion Gap 10.0 mmol/L Blood Urea Nitrogen 41 mg/dl Creatinine 1.90 mg/dl Est Creatinine Clear Calc Drug Dose 16.0 ml/min Estimated GFR () 27.6 Estimated GFR (Non- 23.8 BUN/Creatinine Ratio 21.7 Random Glucose 106 mg/dl Calcium Level 8.6 mg/dl Assessment & Plan OK with staying here today nonspecific belly pain across her diaphragm today and also reports some chronic medial right knee pain denies chest pain or shortness of breath appears calm and was sleeping when I walked in today trial APAP q8h x 3 doses today only CHEST PAIN, SYNCOPE - initial heart alert in ER, Cards eval and no STEMI - serial cardiac enzymes negative overnight - hx abnormal stress that lead to cardiac cath 07/2012 that shows widely patent coronary arteries - noted allergy to ASA - VQ scan-->low prob in setting of no SOB or hypoxia-->heparin drip was stopped - patient recently started on Lasix and was orthostatic positive with reports of lightheadedness prior to passing out--cont holding lasix - cardio consult-->stress test performed and negative -syncope is questionable with the patient being a very poor historian and having different versions of what happened -asymptomatic since admission CKD STAGE IV - prior baseline creat was in the mid 1's; recently started on Lasix for diastolic CHF and had noted worsening renal function - follows with nephro who advised to continue Lasix due to the amount of BLLE edema patient had - outpatient creat 1.7 -> 2.0-->1.7 today-likely her baseline; will cont holding Lasix as edema not present CHRONIC DIASTOLIC CHF - appears euvolemic - echo 07/2016 - EF 60-65%, mild mitral regurgitation, trace tricuspid regurgitation, grade I diastolic dysfunction - holding Lasix as above MIGRAINES - continue Topamax AMBULATORY DYSFUNCTION PT/OT eval and recommends short stay at SNF--awaiting placement for Saturday DVT PROPHYLAXIS Heparin CODE STATUS: full code Dispo-there are concerns per the family that the patient is urinating on herself and not compliant with showers or taking her meds, etc. The Office of Aging has been out to her house and her case management rn, Ruth, is aware of her current admission. PT recommends SNF and family concerned for her, however, psych deemed her fine with no issues. If she wants to leave she can go home with Home Health for PT. Dayanara Georges DO [facility] Hospitalist Continued [facility] stay due to: inadequate oral pain control Consultants: Cards Current Inpatient Medications: Current Inpatient Medications Medications (Trade) Dose Ordered Sig/Mayte Route Start Time Stop Time Status Last Admin Dose Admin Acetaminophen (Tylenol Tab) 650 mg Q4H PRN PO 10/10/16 20:30 11/09/16 20:29 10/12/16 03:39 650 MG Ondansetron HCl (Zofran Inj) 4 mg Q6H PRN IV 10/10/16 20:30 11/09/16 20:29 Nitroglycerin (Nitrostat Tab) 0.4 mg UD PRN SL 10/10/16 20:30 11/09/16 20:29 Ascorbic Acid (Vitamin C Tab) 500 mg DAILYBL PO 10/11/16 11:00 11/10/16 10:59 10/12/16 11:52 500 MG Cholecalciferol (Vitamin D Tab) 1,000 inter.unit QPM PO 10/10/16 21:00 11/09/16 20:59 10/12/16 20:33 1,000 INTER.UNIT Cyanocobalamin (Vitamin B-12 Tab) 1,000 mcg DAILY PO 10/11/16 09:00 11/10/16 08:59 10/13/16 09:30 1,000 MCG Docusate Sodium (coLACE CAP) 100 mg HS PO 10/10/16 21:00 11/09/16 20:59 10/12/16 20:33 100 MG Multivitamins (Multivitamin Tab) 1 tab QPM PO 10/10/16 21:00 11/09/16 20:59 10/12/16 20:33 1 TAB Topiramate (Topamax Tab) 25 mg BID PO 10/10/16 21:00 11/09/16 20:59 10/13/16 09:30 25 MG Ferrous Sulfate (Feosol Tab) 325 mg BID PO 10/10/16 21:00 11/09/16 20:59 10/13/16 09:29 325 MG Pantoprazole Sodium (Protonix Tab) 40 mg DAILY PO 10/11/16 09:00 11/10/16 08:59 10/13/16 09:29 40 MG Miscellaneous (Iv Fluids Completed) 1 ea PRN PRN N/A 10/10/16 20:45 10/10/17 20:44 Heparin Sodium (Porcine) (Heparin Sq 5000 Unit/0.5ml) 5,000 unit Q8 SQ 10/13/16 06:00 11/12/16 05:59 10/13/16 05:34 5,000 UNIT
[2016-10-14 00:03] VITALS: BP 127/77; PULSE 74; TEMP 36.6; O2SAT 98
[2016-10-14] MEDS: ACETAMINOPHEN 500 MG TAB PO SCH (04:29)
[2016-10-14] MEDS: HEPARIN SOD 5000 UNIT/0.5 ML CARP SQ SCH ×3 (05:55→21:42)
[2016-10-14 07:39] VITALS: BP 102/63; PULSE 78; TEMP 36.4; O2SAT 98
[2016-10-14] MEDS: CYANOCOBALAMIN 500 MCG TAB (VIT B-12) PO SCH (08:55)
[2016-10-14] MEDS: FERROUS SULFATE 325 MG TAB PO SCH ×2 (08:56→20:35)
[2016-10-14] MEDS: TOPIRAMATE 25 MG TAB PO SCH ×2 (08:56→20:36)
[2016-10-14] MEDS: PANTOprazole SOD 40 MG TAB PO SCH (08:56)
[2016-10-14] MEDS: ACETAMINOPHEN 325 MG TAB PO PRN ×2 (09:02→21:39)
[2016-10-14] MEDS: ASCORBIC ACID 500 MG TAB PO SCH (11:31)
[2016-10-14 15:01] VITALS: BP 121/71; PULSE 83; TEMP 36.6; O2SAT 95
[2016-10-14 16:00] VITALS: O2SAT 96
--- NOTE | 2016-10-14 16:28 | Progress Note ---
Medicine Progress Note Date & Time of Visit: Oct 14, 2016 at 15:01. Subjective Mrs. Holloway is doing well today She denies any chest pain, lightheadedness or feeling dizzy off the Lasix, denies shortness of breath or any other symptoms at this time. Manuel is with her today. We discussed the recent Nephrology outpatient visit where Dr. Hayes noted her worsened renal function since the addition of Lasix on hospital discharge in Nov She did not remove this, however, because the patient claimed that her leg swelling was severe. The patient also mentions that she has had several episodes of lightheadness, seeing stars, and passing out that have occurred since starting the "water pill. " We discussed that she has had no increased swelling in her ankles here despite being off the water pill now for several days and still ambulating and eating similar to how she does at home. Will re-emphasize the importance of a low salt diet prior to discharge She does mention to me that if she leaves here, she is going home with Manuel. Objective Last 8 Hrs Date Time Temp Pulse Resp B/P Pulse Ox O2 Delivery O2 Flow Rate FiO2 10/14/16 08:30 Room Air 10/14/16 07:39 36.4 78 16 102/63 98 Room Air Physical Exam: GEN: WNWD, in no acute distress, alert and appropriate, no conversational dyspnea HEENT: NC/AT, normal sclerae, MMM CARDIO: reg rate, S1/2 heard without m/g/r LUNGS: CTA bilaterally, no crackles, rales or wheezes, good diaphragmatic excursion ABD: soft, non-tender, non-distended, no rebound or guarding, +BS EXTREMITY: no LE swelling or edema, extremities are warm and well-perfused NEURO: CN 2-12 grossly intact, sensation intact throughout MUSC: 5/5 strength throughout, no gross focal deficits, ambulatory SKIN: warm and dry Assessment & Plan CHEST PAIN, SYNCOPE - initial heart alert in ER, Cards eval and no STEMI - serial cardiac enzymes negative overnight - hx abnormal stress that lead to cardiac cath 07/2012 that shows widely patent coronary arteries - noted allergy to ASA - VQ scan-->low prob in setting of no SOB or hypoxia-->heparin drip was stopped - patient recently started on Lasix and was orthostatic positive with reports of lightheadedness prior to passing out--cont holding lasix - cardio consult-->stress test performed and negative -syncope was confirmed by roommate today who states that since starting Lasix in Jul, she has had several episodes of passing out at home. -Mrs. Holloway concurs with this and states that each time she sees stars and gets very lightheaded before falling down/LOC -She also reports that she only eats once daily because she doesn't have an appetite to eat more than that -discontinue Lasix; if swelling returns, use compression stockings or try lower sodium intake. CKD STAGE IV - prior baseline creat was in the mid 1's; recently started on Lasix for diastolic CHF and had noted worsening renal function - follows with nephro who advised to stop Lasix but didn't due to the amount of BLLE edema patient had - outpatient creat 1.7 -> 2.0-->1.7-->1.9 -Lasix was d/c'd at admission CHRONIC DIASTOLIC CHF - appears euvolemic - echo 07/2016 - EF 60-65%, mild mitral regurgitation, trace tricuspid regurgitation, grade I diastolic dysfunction -stopped Lasix as above MIGRAINES - continue Topamax AMBULATORY DYSFUNCTION PT/OT eval and recommends short stay at SNF--awaiting placement for Saturday DVT PROPHYLAXIS Heparin CODE STATUS: full code Dispo-there are concerns per the family that the patient is urinating on herself and not compliant with showers or taking her meds, etc. The Office of Aging has been out to her house and her supervisor case loading, Ruth, is aware of her current admission. PT recommends SNF and family concerned for her, however, psych deemed her fine with no issues. If she wants to leave she can go home with Home Health for PT. Dayanara Georges DO [facility] Hospitalist Continued [facility] stay due to: inadequate oral pain control Consultants: Cards Current Inpatient Medications: Current Inpatient Medications Medications (Trade) Dose Ordered Sig/Mayte Route Start Time Stop Time Status Last Admin Dose Admin Acetaminophen (Tylenol Tab) 650 mg Q4H PRN PO 10/10/16 20:30 11/09/16 20:29 10/14/16 09:02 650 MG Ondansetron HCl (Zofran Inj) 4 mg Q6H PRN IV 10/10/16 20:30 11/09/16 20:29 Nitroglycerin (Nitrostat Tab) 0.4 mg UD PRN SL 10/10/16 20:30 11/09/16 20:29 Ascorbic Acid (Vitamin C Tab) 500 mg DAILYBL PO 10/11/16 11:00 11/10/16 10:59 10/14/16 11:31 500 MG Cholecalciferol (Vitamin D Tab) 1,000 inter.unit QPM PO 10/10/16 21:00 11/09/16 20:59 10/13/16 20:36 1,000 INTER.UNIT Cyanocobalamin (Vitamin B-12 Tab) 1,000 mcg DAILY PO 10/11/16 09:00 11/10/16 08:59 10/14/16 08:55 1,000 MCG Docusate Sodium (coLACE CAP) 100 mg HS PO 10/10/16 21:00 11/09/16 20:59 10/13/16 20:35 100 MG Multivitamins (Multivitamin Tab) 1 tab QPM PO 10/10/16 21:00 11/09/16 20:59 10/13/16 20:36 1 TAB Topiramate (Topamax Tab) 25 mg BID PO 10/10/16 21:00 11/09/16 20:59 10/14/16 08:56 25 MG Ferrous Sulfate (Feosol Tab) 325 mg BID PO 10/10/16 21:00 11/09/16 20:59 10/14/16 08:56 325 MG Pantoprazole Sodium (Protonix Tab) 40 mg DAILY PO 10/11/16 09:00 11/10/16 08:59 10/14/16 08:56 40 MG Miscellaneous (Iv Fluids Completed) 1 ea PRN PRN N/A 10/10/16 20:45 10/10/17 20:44 Heparin Sodium (Porcine) (Heparin Sq 5000 Unit/0.5ml) 5,000 unit Q8 SQ 10/13/16 06:00 11/12/16 05:59 10/14/16 14:26 5,000 UNIT
[2016-10-14] MEDS: MULTIVITAMIN TAB PO SCH (20:34)
[2016-10-14] MEDS: DOCUSATE SODIUM 100 MG CAP PO SCH (20:34)
[2016-10-14] MEDS: CHOLECALCIFEROL 1000 INTER.UNIT TAB PO SCH (20:34)
[2016-10-15 01:09] VITALS: BP 122/65; PULSE 82; TEMP 36.7; O2SAT 97
[2016-10-15] MEDS: HEPARIN SOD 5000 UNIT/0.5 ML CARP SQ SCH ×2 (06:41→13:25)
[2016-10-15 06:48] LABS: BUN/CREATININE RATIO 21.7 (10-20); CALCIUM 8.9 mg/dl (8.5-10.1); CREATININE 1.5 mg/dl (0.60-1.20); POTASSIUM 3.5 mmol/L (3.5-5.1)
[2016-10-15 07:56] VITALS: BP 108/59; PULSE 75; TEMP 36.6; O2SAT 99
[2016-10-15] MEDS: FERROUS SULFATE 325 MG TAB PO SCH (09:33)
[2016-10-15] MEDS: PANTOprazole SOD 40 MG TAB PO SCH (09:33)
[2016-10-15] MEDS: CYANOCOBALAMIN 500 MCG TAB (VIT B-12) PO SCH (09:33)
[2016-10-15] MEDS: TOPIRAMATE 25 MG TAB PO SCH (09:34)
--- NOTE | 2016-10-15 09:42 | Psychiatric Progress Notes ---
Psychiatric Progress Note Date of Service Oct 15, 2016. Notes ID: Patient reviewed with liaison nurse. Interim progress reviewed, primary team did confirm AAA involvement. CC: "I miss him" HPI: continues to deny depression, states lonely for home ROS: states she is eating and sleeping well but wants to be home, denies pain currently MSE: alert, cooperative, affect spontaneously bright, thoughts concrete but responds appropriately to questions. No SI or finn. Imp: same adjustment issues Plan: in home monitoring of ability to care for self/medical needs as per primary team.
[2016-10-15] MEDS: ASCORBIC ACID 500 MG TAB PO SCH (11:54)
[2016-10-15 14:48] VITALS: BP 110/62; PULSE 72; TEMP 36.6; O2SAT 99
--- NOTE | 2016-10-15 15:06 | Discharge Instructions ---
Discharge Instructions Admission Reason for Admission: Chest Pain, Syncope Discharge Discharge Diagnosis / Problem: Atypical chest pain-resolved, Syncope 2/2 diuretic use Discharge Goals Goal(s): Prevent Disease Progression Activity Recommendations Activity Limitations: as noted below (per staff at rehabilitation center) . Instructions / Follow-Up Instructions / Follow-Up Please take all medications as instructed. Please remember to stay off Lasix unless otherwise instructed by a physician. As you have stopped Lasix, you do not require daily potassium supplementation either. You have an appointment scheduled with Dr. Ott on Sat, 10/19 @ 9:50am for follow-up from this hospitalization. Please take all paperwork with you from discharge and arrive 15 minutes early. It was a pleasure taking care of you! Call if you have any questions or problems. You can reach a [facility] hospitalist on duty at [facility] 24 hours a day by calling [phone]. Take care of yourself. Dayanara Georges DO [facility] Hospitalist Current Hospital Diet Patient's current hospital diet: Low Sodium Diet (2gm Na), AHA Diet (Heart Healthy) Discharge Diet Recommended Diet: AHA Diet (Heart Healthy) Procedures Procedures Performed: Dobutamine stress test-normal Pending Studies Studies pending at discharge: no Laboratory Results Hemoglobin A1c Test 10/10/16 23:54 Range/Units Estimated Average Glucose 148 mg/dl Hemoglobin A1c 6.8 H 4.5-5.6 % Lipid Panel Test 10/11/16 06:07 Range/Units Triglycerides Level 65 0-150 mg/dl Cholesterol Level 143 0-200 mg/dl HDL Cholesterol 64 mg/dl Cholesterol/HDL Ratio 2.2 LDL Cholesterol, Calculated 66 mg/dl Medical Emergencies . Who to Call and When: Medical Emergencies: If at any time you feel your situation is an emergency, please call 911 immediately. . Non-Emergent Contact Non-Emergency issues call your: Primary Care Provider . . "Provider Documentation" section prepared by Dayanara Georges. VTE Core Measure Inpt VTE Proph given/why not?: Unfractionated heparin SQ
[2016-10-15 15:19] VITALS: BP 110/62; PULSE 72; TEMP 36.6; O2SAT 99
[2016-10-15 16:00] VITALS: O2SAT 96
--- NOTE | 2016-10-21 09:30 | Discharge Summary ---
Discharge Summary Admission Date: Oct 11, 2016 at 14:01 Discharge Date: Oct 15, 2016 Discharge Disposition: alf facility Principal Diagnosis: Syncope 2/2 orthostatic hypotension 2/2 diuretic use Atypical chest pain CKD-Stage IV Chronic diastolic CHF h/o migraines on Topamax for prophylaxis Ambulatory dysfunction Procedures: DSE-10/11 Vaccinations: Influenza-10/15 Pneumovax-10/15 Consultations: Psych, Cards Pending Studies/Follow-Up: see instructions below Medication Reconciliation Continued Medications: Albuterol Hfa (Ventolin Hfa) 200 Puffs/73619 Mcg Aers 2 PUFFS INH QID, #1 INHALER Ascorbic Acid (Ascorbic Acid) 500 Mg Tab 500 MG PO DAILYBL, TAB Carboxymethylcellulose Sodium (Refresh Tears) 0.5 % Say 1 DROP OPB HS Carboxymethylcellulose Sodium (Refresh Tears) 0.5 % Say 1 DROP OPB Q4H PRN for DRY EYES Cholecalciferol (Vitamin D) 1,000 Inter.unit Tab 1000 INTER.UNIT PO QPM, TAB Cyanocobalamin (Vitamin B-12) 500 Mcg Tab 1000 MCG PO DAILY, TAB Docusate Sodium (Docusate Sodium) 100 Mg Cap 1 CAP PO HS Ferrous Sulfate (Kp Ferrous Sulfate) 325 Mg Tab 1 TAB PO BID for 30 Days, #60 TAB 3 Refills Multivitamin (Multivitamin) Tab 1 TAB PO QPM, TAB Pantoprazole Sodium (Protonix) 40 Mg Carter 40 MG PO DAILY take 30 min. prior meal Topiramate (Topamax ) 25 Mg Tab 25 MG PO BID, TAB Discontinued Medications: Furosemide (Lasix) 20 Mg Tab 20 MG PO Q2D, TAB Potassium Chloride (Klor-Con M20) 20 Meq Tabcr 20 MEQ PO Q2D Admission Information HPI (per Admitting provider): 85 year old female who presents to the ER for chest pain and syncopal event. During my time with the patient, she changes her history multiple times; therefore I do not think she is a good historian. Her roommate entered the room and reports that patient was walking down the finn when she reported she didn't feel good. She also reported chest pain and that she couldn't breathe. He reports she then passed out on the couch. He reports she was unconscious for about one hour until EMS arrived. He reports she was breathing. No seizure like activity or loss of bowel or bladder function. Patient mentions an episode of chest pain two night ago while sleeping. She reports she was awoken from sleep with chest pressure. She reports it lasted for about an hour and resolved on its own. She has chronic lower extremity edema which is unchanged. She denies orthopnea. No abdominal pain, nausea, vomiting, or diarrhea. She denies recent illnesses, fever, or chills. No urinary symptoms. In the ER, initial troponin is negative and EKG does not show any acute ST changes. Physical Exam (per Admitting): General Appearance: no apparent distress Head: normocephalic Eyes: normal inspection ENT: hearing grossly normal Neck: supple, no JVD Respiratory/Chest: lungs clear, normal breath sounds, no respiratory distress Cardiovascular: regular rate, rhythm, + pertinent finding (+2 edema BLLE) Abdomen/GI: normal bowel sounds, non tender, soft Extremities/Musculoskelatal: normal inspection, no calf tenderness Neurologic/Psych: no motor/sensory deficits, alert, normal mood/affect, oriented x 3 Skin: normal color, warm/dry Hospital Course CHEST PAIN, SYNCOPE - initial heart alert in ER, Cards eval and no STEMI - serial cardiac enzymes negative overnight - hx abnormal stress that lead to cardiac cath 07/2012 that shows widely patent coronary arteries - noted allergy to ASA - VQ scan-->low prob in setting of no SOB or hypoxia-->heparin drip was stopped - patient recently started on Lasix and was orthostatic positive with reports of lightheadedness prior to passing out--cont holding lasix - cardio consult-->stress test performed and negative -syncope was confirmed by roommate today who states that since starting Lasix in Jul, she has had several episodes of passing out at home. -Mrs. Holloway concurs with this and states that each time she sees stars and gets very lightheaded before falling down/LOC -She also reports that she only eats once daily because she doesn't have an appetite to eat more than that -discontinue Lasix; if swelling returns, use compression stockings or try lower sodium intake. CKD STAGE IV - prior baseline creat was in the mid 1's; recently started on Lasix for diastolic CHF and had noted worsening renal function - follows with nephro who advised to stop Lasix but didn't due to the amount of BLLE edema patient had - outpatient creat 1.7 -> 2.0-->1.7-->1.9 -Lasix was d/c'd at admission CHRONIC DIASTOLIC CHF - appears euvolemic - echo 07/2016 - EF 60-65%, mild mitral regurgitation, trace tricuspid regurgitation, grade I diastolic dysfunction -stopped Lasix as above MIGRAINES - continue Topamax AMBULATORY DYSFUNCTION PT/OT eval and recommends short stay at SNF--awaiting placement for Saturday Dispo-there are concerns per the family that the patient is urinating on herself and not compliant with showers or taking her meds, etc. The [facility] has been out to her house and her case aide, Ruth, is aware of her current admission/discharge plans. PT recommends SNF and family concerned for her, however, psych deemed her competent with no issues. She agreed to go to [facility] for rehab with SNF per PT recommendations, and to allow Office of Aging time to put more resources in place for her. On day of discharge she was ambulatory and mentating at baseline. She was tolerating PO and had no return of chest pain, lightheadedness or syncope and no increased leg swelling during this admission off the Lasix. Her creatine began to improve, also, and was down to 1.5 at discharge. She was afebrile and hemodynamically stable and physical exam was unremarkable. She was discharged to SNF at [facility] in good condition with recommended close follow-up with PCP upon discharge from this facility. Total time spent on discharge = 60 minutes This includes examination of the patient, discharge planning, medication reconciliation, and communication with other providers. Discharge Instructions Discharge Instructions Admission Reason for Admission: Chest Pain, Syncope Discharge Discharge Diagnosis / Problem: Atypical chest pain-resolved, Syncope 2/2 diuretic use Discharge Goals Goal(s): Prevent Disease Progression Activity Recommendations Activity Limitations: as noted below (per staff at rehabilitation center) . Instructions / Follow-Up Instructions / Follow-Up Please take all medications as instructed. Please remember to stay off Lasix unless otherwise instructed by a physician. As you have stopped Lasix, you do not require daily potassium supplementation either. You have an appointment scheduled with Dr. Ott on Sat, 10/19 @ 9:50am for follow-up from this hospitalization. Please take all paperwork with you from discharge and arrive 15 minutes early. It was a pleasure taking care of you! Call if you have any questions or problems. You can reach [facility] 24 hours a day by calling [phone]. Take care of yourself. Dayanara Georges, DO [facility] Center[facility] Additional Copies To Van Ott M.D.
[2017-05-10] MEDS ORDERED: FURO20TA PO (17:06)
[2017-05-10] MEDS ORDERED: CPR500 PO (17:06)
[2017-05-10] MEDS ORDERED: MCRK20 PO (17:17)
== END 2016-10-15 18:00 | DRG 313 ==
LOC: ENRESERVTM → ENRESERVDT → C.EDB 18:09 → C.2T 20:23 → OBSVTOIN 10-11 14:01 → C.4E 10-11 18:28
PROVIDERS: ADMIT Hospitalist; ATTEND Hospitalist
DX: R07.89 Other chest pain (principal); I50.32 Chronic diastolic (congestive) heart failure; N18.4 Chronic kidney disease, stage 4 (severe); K21.9 Gastro-esophageal reflux disease without esophagitis; E03.9 Hypothyroidism, unspecified; G20 Parkinson's disease; I48.0 Paroxysmal atrial fibrillation; E78.5 Hyperlipidemia, unspecified; E11.22 Type 2 diabetes mellitus with diabetic chronic kidney disease; R55 Syncope and collapse; T50.2X5A Adverse effect of carbonic-anhydrase inhibitors, benzothiadiazides and other diuretics, initial encounter; G89.29 Other chronic pain; R10.9 Unspecified abdominal pain; F43.20 Adjustment disorder, unspecified; G43.909 Migraine, unspecified, not intractable, without status migrainosus; R26.89 Other abnormalities of gait and mobility; M25.561 Pain in right knee; Z23 Encounter for immunization; Z87.891 Personal history of nicotine dependence; Z79.899 Other long term (current) drug therapy

== ENCOUNTER 2017-05-08 11:29 | Inpatient (IN) | payer OTHER ==
[~2017-05-08] VITALS: Ht 142.2 cm; Wt 67.4 kg
[~2017-05-08 11:29] MED LIST changes: +CARB0.5D28 OPB; -FURO-85 PO; -POTA1POW PO; -TYLER650 PO; +VNTHFA/IN INH
--- NOTE | 2017-05-08 12:19 | DIAGNOSTIC IMAGING REPORT ---
CHEST ONE VIEW PORTABLE CLINICAL HISTORY: 86 years-old Female presenting with sob . TECHNIQUE: Portable upright AP view of the chest was obtained. COMPARISON: 10/10/2016. FINDINGS: Atherosclerosis of the aortic arch. Mitral annular calcification noted. Lungs and pleural spaces clear. S-shaped scoliotic curvature of the thoracolumbar spine with associated degenerative changes. Upper abdomen normal. IMPRESSION: 1. No acute cardiopulmonary disease. Electronically signed by: Clay Rodriguez M.D. 05/08/2017 12:18 PM Dictated Date/Time: 05/08/2017 12:17 PM
[2017-05-08 12:39] LABS: BASO % 0.6 %; BASO ABS # 0.03 K/uL (0-0.2); COMPLETE YES; EOS % 2.1 %; HEMATOCRIT 30.2 % (37-47); IG% 1.2 %; LYMPH % 28.9 %; LYMPH ABS # 1.48 K/uL (1.2-3.4); MEAN CELL VOLUME 81.4 fL (80-100); MEAN CORPUSCULAR HEMOGLOBIN 25.9 pg (25-34); MEAN CORPUSCULAR HGB CONC 31.8 g/dl (32-36); MEAN PLATELET VOLUME 12.3 fL (7.4-10.4); NEUT % 59.2 %; PLATELET COUNT 206 K/uL (130-400); RED BLOOD COUNT 3.71 M/uL (4.2-5.4); WHITE BLOOD COUNT 5.12 K/uL (4.8-10.8)
[2017-05-08 13:00] LABS: ALT/SGPT 12 U/L (12-78); AST/SGOT 5 U/L (15-37); BLOOD UREA NITROGEN 29 mg/dl (7-18); BUN/CREATININE RATIO 15.2 (10-20); CALCIUM 8.2 mg/dl (8.5-10.1); CARBON DIOXIDE 22 mmol/L (21-32); CHLORIDE 114 mmol/L (98-107); GLUCOSE 189 mg/dl (70-99); POTASSIUM 3.9 mmol/L (3.5-5.1); SODIUM 143 mmol/L (136-145)
[2017-05-08 13:05] LABS: ALKALINE PHOSPHATASE 94 U/L (45-117)
[2017-05-08 14:46] VITALS: O2SAT 100; Ht 142.2 cm; Wt 67.4 kg
[2017-05-08] MEDS ORDERED: ONDANSETRON INJ 2 MG/ML 2 ML VIAL IV PRN (15:15)
[2017-05-08] MEDS ORDERED: GLUCOSE 40% GEL 15 GM TUBE PO PRN (15:30)
[2017-05-08] MEDS ORDERED: GLUCAGON FOR INJ 1 MG VIAL SQ PRN (15:30)
[2017-05-08] MEDS ORDERED: IV FLUIDS COMPLETED PRN (15:30)
[2017-05-08] MEDS ORDERED: DEXTROSE 50% 50 ML SYR IV PRN (15:30)
[2017-05-08] MEDS ORDERED: GLUCOSE 10 TABS/TUBE PO PRN (15:30)
--- NOTE | 2017-05-08 15:45 | History and Physical ---
History & Physical Date & Time of Service: May 08, 2017 at 15:44 Chief Complaint: Swelling In Legs;Kidney Problems Primary Care Physician: Van Ott M.D. History of Present Illness Source: patient This is a 86yo female with a PMH of CKD IV, DM II, diastolic HF, hypothyroidism , h/o syncope who presents with "kidney problems" over the past few days. Patient reports falling last week and injuring her back. Denies hitting her head or a LOC with the fall. States that lower back pain has been constant since then and that she has also experienced associated urinary leakage and dysuria. States that at her baseline, patient is continent and does not have urinary accidents. Also endorses worsening leg swelling over the past few weeks. Denies any CP, dyspnea, SOB, orthopnea. Does not weigh herself at home, restrict salt intake or fluid intake. Also states that she has not taken any medication at home in months. Was sent to the ED by Dr. Ott after her clinic visit today. Was admitted to [facility] in September for a syncopal episode 2/2 overdiuresis on lasix. According to chart review, lasix was stopped and patient was instructed to reduce Na intake and wear compression stockings if LE swelling returned. Due to patient's non adherence with dietary change and stockings, her PCP restarted her on Lasix 20 every other day during a follow up appointment in March. However , it is unclear whether or not patient is taking lasix at home at this point. Per discussion with patient's POA, Lori Rojo, the patient lives in a trailer in [place] with Lori's brother, Sukumar. He is 67 and has intellectual disabilities but helps Bibiana take her medications each day. Lori states that Bibiana's health and ability to live at home have declined since her last admission in September. She used to have intermittent urinary incontinence, ambulate with a cane and require only some help with ADLs. Over the past few months, however, patient has become incontinent with urine and feces, leaving soiled briefs in her closet. Bibiana is unable to ambulate from room to room on her own. Lori has also noticed a decline in her short term memory and level of orientation and no longer feels that it is safe for Bibiana to live at the trailer. Past Medical/Surgical History Medical Problems: (1) CKD (chronic kidney disease), stage IV Status: Chronic (2) Diabetes mellitus type 2 Status: Chronic (3) Dyslipidemia Status: Chronic (4) Gastroesophageal reflux disease Status: Chronic (5) Hypothyroidism Status: Chronic (6) PAF (paroxysmal atrial fibrillation) Permanent Comment: chart history of Status: Chronic (7) Parkinson's disease Status: Chronic Surgical Problems: (1) History of appendectomy Status: Resolved (2) History of cholecystectomy Status: Resolved (3) History of mastectomy Permanent Comment: L breast 1950 Status: Resolved Family History FH: cancer MOTHER Stroke SISTER Social History Smoking Status: Never Smoker Drug Use: none Marital Status: , in relationship Housing status: lives with roommate Occupational Status: retired Immunizations History of Influenza Vaccine: Yes Influenza Vaccine Date: Jun 01, 2016 History of Tetanus Vaccine?: Yes Tetanus Immunization Date: Jul 21, 2008 History of Pneumococcal: Yes Pneumococcal Date: Aug 30, 2014 Multi-Drug Resistant Organisms History of MDRO: No Allergies Coded Allergies: Garlic (Verified Allergy, Severe, "raw garlic" airway closes, 05/08/17) Shellfish (Verified Allergy, Severe, FISH = "HIVES" AND "CANT BREATH", ) REPORTS "SEAFOOD" ALLERGY Macrolides and Ketolides (Verified Allergy, Intermediate, ZITHROMAX-HIVES , 05/08/17) Amitriptyline (Verified Allergy, Unknown, _, 05/08/17) Aspirin (Verified Allergy, Unknown, UNKNOWN, 05/08/17) Azithromycin (Verified Allergy, Unknown, HIVES, 05/08/17) Cephalosporins (Verified Allergy, Unknown, UNKNOWN, 05/08/17) [id number] Ethyl Esters (Verified Allergy, Unknown, hives, 05/08/17) Penicillins (Verified Allergy, Unknown, UNKNOWN, 05/08/17) Red Dye (Verified Allergy, Unknown, Unknown rxn, 05/08/17) Tricyclic Antidepressants (Verified Allergy, Unknown, _, 05/08/17) White Fish (Verified Allergy, Unknown, UNKNOWN- "SEAFOOD", 05/08/17) REPORTS "SEAFOOD" ALLERGY NSAIDs (Verified Adverse Reaction, Severe, NO NSAIDS PER MARTEN WISE 08/27, 05/08/17) Metoclopramide (Verified Adverse Reaction, Intermediate, PARKINSON'S RIGIDITY AND LIP TREMOR, 05/08/17) Erythromycin (Verified Adverse Reaction, Unknown, HEADACHE,NAUSEA, 05/08/17 ) Home Medications Scheduled Furosemide (Lasix), 1 TAB PO DAILY Pantoprazole Sodium (Protonix), 40 MG PO DAILY Topiramate (Topamax ), 25 MG PO BID Review of Systems Ten systems reviewed and negative except as noted in the HPI. Physical Exam Vital Signs Date Time Temp Pulse Resp B/P (MAP) Pulse Ox O2 Delivery O2 Flow Rate FiO2 05/08/17 14:46 100 Room Air 05/08/17 14:28 68 20 105/59 100 Room Air 05/08/17 13:25 91 18 125/70 98 Room Air 05/08/17 12:06 85 05/08/17 11:44 98 Room Air 05/08/17 11:31 36.5 92 20 128/66 97 Room Air General Appearance: WD/WN, no apparent distress Head: normocephalic, atraumatic Eyes: normal inspection, sclerae normal ENT: hearing grossly normal Neck: supple, no adenopathy, trachea midline Respiratory/Chest: chest non-tender, lungs clear, normal breath sounds, no respiratory distress, no accessory muscle use Cardiovascular: regular rate, rhythm (With some irregular beats), no murmur Abdomen/GI: normal bowel sounds, non tender, soft, no organomegaly (Presence of nodular scar tissue along incision point in suprapubic area. States that it is painful but has been there since tubal ligation. ) Back: normal inspection (TTP of bilateral lower back) Extremities/Musculoskelatal: + swelling (2+ swelling of LE up to waist. Non- tender, no skin breakdown.) Neurologic/Psych: no motor/sensory deficits, alert (Oriented to person and place, not time. Seems unclear about events leading up to hospitalization. ), normal mood/affect Skin: normal color, warm/dry, no rash Diagnostics Laboratory Results Results Past 24 Hours Test 05/08/17 12:24 05/08/17 15:22 Range/Units White Blood Count 5.12 4.8-10.8 K/uL Red Blood Count 3.71 4.2-5.4 M/uL Hemoglobin 9.6 12.0-16.0 g/dL Hematocrit 30.2 37-47 % Mean Corpuscular Volume 81.4 80-100 fL Mean Corpuscular Hemoglobin 25.9 25-34 pg Mean Corpuscular Hemoglobin Concent 31.8 32-36 g/dl Platelet Count 206 130-400 K/uL Mean Platelet Volume 12.3 7.4-10.4 fL Neutrophils (%) (Auto) 59.2 % Lymphocytes (%) (Auto) 28.9 % Monocytes (%) (Auto) 8.0 % Eosinophils (%) (Auto) 2.1 % Basophils (%) (Auto) 0.6 % Neutrophils # (Auto) 3.03 1.4-6.5 K/uL Lymphocytes # (Auto) 1.48 1.2-3.4 K/uL Monocytes # (Auto) 0.41 0.11-0.59 K/uL Eosinophils # (Auto) 0.11 0-0.5 K/uL Basophils # (Auto) 0.03 0-0.2 K/uL RDW Standard Deviation 55.2 36.4-46.3 fL RDW Coefficient of Variation 18.6 11.5-14.5 % Immature Granulocyte % (Auto) 1.2 % Immature Granulocyte # (Auto) 0.06 0.00-0.02 K/uL Sodium Level 143 136-145 mmol/L Potassium Level 3.9 3.5-5.1 mmol/L Chloride Level 114 98-107 mmol/L Carbon Dioxide Level 22 21-32 mmol/L Anion Gap 7.0 3-11 mmol/L Blood Urea Nitrogen 29 7-18 mg/dl Creatinine 1.90 0.60-1.20 mg/dl Estimated GFR () 27.4 Estimated GFR (Non- 23.6 BUN/Creatinine Ratio 15.2 10-20 Random Glucose 189 70-99 mg/dl Calcium Level 8.2 8.5-10.1 mg/dl Total Bilirubin 0.3 0.2-1 mg/dl Direct Bilirubin 0.1 0-0.2 mg/dl Aspartate Amino Transf (AST/SGOT) 5 15-37 U/L Alanine Aminotransferase (ALT/SGPT) 12 12-78 U/L Alkaline Phosphatase 94 45-117 U/L Troponin I < 0.015 0-0.045 ng/ml Pro-B-Type Natriuretic Peptide 330 0-1800 pg/ml Total Protein 6.1 6.4-8.2 gm/dl Albumin 2.9 3.4-5.0 gm/dl Lipase 182 73-393 U/L CXR normal EKG Sinus rhythm with PACs Impression Assessment and Plan This is a 86yo female with a PMH of CKD IV, DM II, diastolic HF, hypothyroidism , h/o syncope who presents with "kidney problems" over the past few days. Urinary incontinence: -Per patient, this is a new symptom x 3 days since falling and injuring lumbosacral region of back -Per chart review, patient is incontinent at baseline -Ordered an MRI of the lumbosacral spine for cauda equina r/o -Ordered UA and urine culture -Began empirically treating for a UTI with renally-dosed Cipro CKD Stage 4: -Cr has ranged from 1.5-1.9 during 2017 -Currently bumped to 1.9 -Follows out-patient with nephrology who advised to stoplasix previously but it was continued due to significant LE swelling -Per March PCP note, lasix was restarted at 20mg every other day. Unclear if patient has been adherent to this at home -On 20mg PO lasix in-patient for LE swelling -Monitor BMP DM II: -Hgb a1c in 10/02 was 6.8 -Does not take any medications at home -BG checks ACHS -SSI Chronic diastolic CHF: -Has significant LE edema but no pulmonary congestion on exam or CXR -Echo 07/2016 - EF 60-65%, mild mitral regurgitation, trace tricuspid regurgitation, grade I diastolic dysfunction -Re-ordered echo for evaluation of new valvular disease, significant changes -Low Na diet, fluid restriction, daily weights -Likely that LE swelling is mainly 2/2 venous stasis -Ordered compressions stockings Hypothyroidism: -Denies taking home medications -Ordered TSH/Free T4 H/o syncope: -Admitted for syncopal episode in September 17 overdiuresis -Denies any recent syncopal episodes DVT Ppx: Heparin SQ Code status: DNR, per discussion with patient and advanced directive PCP: Tru Dispo: [facility] consulted to help with discharge placement. Patient is followed closely by out-pt case management. Both patient and POA have refused suggestions to transition from home to a facility. Will reach out to POA to discuss further. Attending Addendum Dr. Bravo I have seen and examined the patient with JEREMY Castillo and agree with her assessment and plan and would like to comment on the following: This is a 86yo female with a PMH of CKD IV, DM II, diastolic HF, hypothyroidism , h/o syncope who presents with urinary incontinence after recent outpatient clinic evaluation. When evaluated in the ED there was initial concern that patient was having cardiac respiratory complaints as primary symptoms as she presented with bilateral lower extremity edema. However she has had this condition chronically and her September 2016 cardiac tests showed preserved ejection fraction with diastolic grade I heart failure. Despite positive bilateral lower extremity edema her chest X ray is clear and she is breathing comfortably on room air. Her pro BNP is 330 and is not a very high level. Patient denies recent use of furosemide. However she may be an unreliable historian as she is oriented to person and place but not time. Main complaints is urinary incontinence. She has documented problems with urinary incontinence in the past however she reports that since a traumatic fall with injury to her back, this urinary incontinence has been increasing in frequency. She also reports of dysuria. In the ED, no urinalysis was obtained. Will obtain UA and urine culture. Will empirically treat with fluoroquinolones renally dosed because of multiple listed drug allergies to Beta-lactams. However given that there is correlation to urinary incontinence to possible back injury, will also try to rule out cauda equina with MRI. Because patient having difficulty in answering needed information for MRI safety, radiology department recommend to obtain X ray orbits and X ray KUB to rule out contraindicated devices or metals, patient already has negative chest X ray. Will also send for TTE and ultrasound lower extremities in evaluation of edema. Patient may need physical therapy in ambulating given fall history and lower extremity swelling. In addition, patient noted to have multiple hospital presentations in recent years and generally benign findings. It is a concern whether she may be overutilizing hospital visits based on social problems such as difficult home situation. Patient also has power of civil litigation attorney endorsed to a person named Beryl Alia who reports that the patient lives with Beryl's brother. Beryl reports having prior discussions for assisted living facilities. Patient will likely need social work followup during this hospital Observation before hospital discharge. Patient has advanced care directions with code status DNR Level of Care Med/Surg Advanced Directives Existing Living Will: No Existing Power of Tube Mill Operator: Yes Resuscitation Status DO NOT RESUSCITATE VTE Prophylaxis VTE Risk Assessment Done? Y/N: Yes Risk Level: Moderate Given or contraindicated: Unfractionated heparin SQ Social Service Consult Abuse/Neglect Concerns, >80 yr.& Lives Alone
[2017-05-08] MEDS ORDERED: FURO20TA PO (15:48)
--- NOTE | 2017-05-08 15:57 | EMERGENCY ROOM VISIT NOTE ---
History Report prepared by Blake: Tram Haywood Under the Supervision of: Dr. Feliz Lennon D.O. First contact with patient: 11:40 Chief Complaint: REFERRED BY DOCTOR Stated Complaint: SWELLING IN LEGS;KIDNEY PROBLEMS History of Present Illness The patient is a 86 year old female who presents to the Emergency Room with complaints of worsening kidney problems for the past two weeks. She states that she has been following up with Dr. Caceres, her PCP, for the past two months for "trouble with the kidneys." She was at his office today and he sent her to the ED for further evaluation. The patient has a history of CRF. She does not take diuretics or blood thinners. She reports urinary incontinence, leg swelling , and shortness of breath that is worse with exertion. She rates her pain as a 6 /10 in severity. The patient has not been weighing herself to monitor fluid retention. Source of History: patient Onset: two weeks ago Position: other (kidneys) Symptom Intensity: 6/10 Timing: worsening Modifying Factors (Worsening): exertion Associated Symptoms: + SOB, + urinary symptoms (incontinence) Note: Pt notes leg swelling. Review of Systems See HPI for pertinent positives & negatives. A total of 10 systems reviewed and were otherwise negative. Past Medical & Surgical Medical Problems: (1) Bilateral lower extremity edema (2) Chest pain, atypical (3) CKD (chronic kidney disease), stage IV (4) Diabetes mellitus type 2 (5) Dyslipidemia (6) Gastroesophageal reflux disease (7) Hypothyroidism (8) PAF (paroxysmal atrial fibrillation) (9) Parkinson's disease (10) Syncope (11) Urinary incontinence Surgical Problems: (1) History of appendectomy (2) History of cholecystectomy (3) History of mastectomy Family History FH: cancer MOTHER Stroke SISTER Social History Smoking Status: Never Smoker Alcohol Use: none Drug Use: none Marital Status: , in relationship Housing Status: lives with significant other Occupation Status: retired Current/Historical Medications Scheduled Furosemide (Lasix), 1 TAB PO DAILY Pantoprazole Sodium (Protonix), 40 MG PO DAILY Topiramate (Topamax ), 25 MG PO BID Allergies Coded Allergies: Garlic (Verified Allergy, Severe, "raw garlic" airway closes, 05/08/17) Shellfish (Verified Allergy, Severe, FISH = "HIVES" AND "CANT BREATH", ) REPORTS "SEAFOOD" ALLERGY Macrolides and Ketolides (Verified Allergy, Intermediate, ZITHROMAX-HIVES , 05/08/17) Amitriptyline (Verified Allergy, Unknown, _, 05/08/17) Aspirin (Verified Allergy, Unknown, UNKNOWN, 05/08/17) Azithromycin (Verified Allergy, Unknown, HIVES, 05/08/17) Cephalosporins (Verified Allergy, Unknown, UNKNOWN, 05/08/17) Pfynd-0-Jhrf Ethyl Esters (Verified Allergy, Unknown, hives, 05/08/17) Penicillins (Verified Allergy, Unknown, UNKNOWN, 05/08/17) Red Dye (Verified Allergy, Unknown, Unknown rxn, 05/08/17) Tricyclic Antidepressants (Verified Allergy, Unknown, _, 05/08/17) White Fish (Verified Allergy, Unknown, UNKNOWN- "SEAFOOD", 05/08/17) REPORTS "SEAFOOD" ALLERGY NSAIDs (Verified Adverse Reaction, Severe, NO NSAIDS PER MARTEN WISE 08/27, 05/08/17) Metoclopramide (Verified Adverse Reaction, Intermediate, PARKINSON'S RIGIDITY AND LIP TREMOR, 05/08/17) Erythromycin (Verified Adverse Reaction, Unknown, HEADACHE,NAUSEA, 05/08/17 ) Physical Exam Vital Signs Date Time Temp Pulse Resp B/P (MAP) Pulse Ox O2 Delivery O2 Flow Rate FiO2 05/08/17 14:46 100 Room Air 05/08/17 14:28 68 20 105/59 100 Room Air 05/08/17 13:25 91 18 125/70 98 Room Air 05/08/17 12:06 85 05/08/17 11:44 98 Room Air 05/08/17 11:31 36.5 92 20 128/66 97 Room Air Physical Exam GENERAL: alert, sitting up in bed, disheveled, chronically ill appearing, well nourished, no distress, talking in full sentences. EYE EXAM: normal conjunctiva OROPHARYNX: no exudate, no erythema, lips, buccal mucosa, and tongue normal and mucous membranes are moist NECK: supple, no nuchal rigidity, no adenopathy, non-tender, no JVD LUNGS: Clear to auscultation. Normal chest wall mechanics HEART: no murmurs, S1 normal and S2 normal ABDOMEN: abdomen soft, non-tender, normo-active bowel sounds, no masses, no rebound or guarding. BACK: Back is symmetrical on inspection and there is no deformity, no midline tenderness, no CVA tenderness. SKIN: no rashes and no bruising UPPER EXTREMITIES: upper extremities are grossly normal. LOWER EXTREMITIES: No pitting edema. Pitting edema tracking up to thighs. NEURO EXAM: Normal sensorium, cranial nerves II-XII grossly intact, normal speech, no gross weakness of arms, no gross weakness of legs. Medical Decision & Procedures ER Provider Diagnostic Interpretation: Radiology results as stated below per my review and the radiologist's interpretation: CHEST ONE VIEW PORTABLE CLINICAL HISTORY: 86 years-old Female presenting with sob . TECHNIQUE: Portable upright AP view of the chest was obtained. COMPARISON: 10/10/2016. FINDINGS: Atherosclerosis of the aortic arch. Mitral annular calcification noted. Lungs and pleural spaces clear. S-shaped scoliotic curvature of the thoracolumbar spine with associated degenerative changes. Upper abdomen normal. IMPRESSION: 1. No acute cardiopulmonary disease. Electronically signed by: Clay Rodriguez M.D. 05/08/2017 12:18 PM Dictated Date/Time: 05/08/2017 12:17 PM Laboratory Results 05/08/17 12:24 Red Blood Count 3.71, Mean Corpuscular Volume 81.4, Mean Corpuscular Hemoglobin 25.9, Mean Corpuscular Hemoglobin Concent 31.8, Mean Platelet Volume 12.3, Neutrophils (%) (Auto) 59.2, Lymphocytes (%) (Auto) 28.9, Monocytes (%) (Auto) 8.0, Eosinophils (%) (Auto) 2.1, Basophils (%) (Auto) 0.6, Neutrophils # (Auto) 3.03, Lymphocytes # (Auto) 1.48, Monocytes # (Auto) 0.41, Eosinophils # (Auto) 0.11, Basophils # (Auto) 0.03 05/08/17 12:24 Test 05/08/17 12:24 05/08/17 15:22 White Blood Count 5.12 K/uL (4.8-10.8) Red Blood Count 3.71 M/uL (4.2-5.4) Hemoglobin 9.6 g/dL (12.0-16.0) Hematocrit 30.2 % (37-47) Mean Corpuscular Volume 81.4 fL (80-100) Mean Corpuscular Hemoglobin 25.9 pg (25-34) Mean Corpuscular Hemoglobin Concent 31.8 g/dl (32-36) Platelet Count 206 K/uL (130-400) Mean Platelet Volume 12.3 fL (7.4-10.4) Neutrophils (%) (Auto) 59.2 % Lymphocytes (%) (Auto) 28.9 % Monocytes (%) (Auto) 8.0 % Eosinophils (%) (Auto) 2.1 % Basophils (%) (Auto) 0.6 % Neutrophils # (Auto) 3.03 K/uL (1.4-6.5) Lymphocytes # (Auto) 1.48 K/uL (1.2-3.4) Monocytes # (Auto) 0.41 K/uL (0.11-0.59) Eosinophils # (Auto) 0.11 K/uL (0-0.5) Basophils # (Auto) 0.03 K/uL (0-0.2) RDW Standard Deviation 55.2 fL (36.4-46.3) RDW Coefficient of Variation 18.6 % (11.5-14.5) Immature Granulocyte % (Auto) 1.2 % Immature Granulocyte # (Auto) 0.06 K/uL (0.00-0.02) Anion Gap 7.0 mmol/L (3-11) Estimated GFR () 27.4 Estimated GFR (Non- 23.6 BUN/Creatinine Ratio 15.2 (10-20) Calcium Level 8.2 mg/dl (8.5-10.1) Total Bilirubin 0.3 mg/dl (0.2-1) Direct Bilirubin 0.1 mg/dl (0-0.2) Aspartate Amino Transf (AST/SGOT) 5 U/L (15-37) Alanine Aminotransferase (ALT/SGPT) 12 U/L (12-78) Alkaline Phosphatase 94 U/L (45-117) Troponin I < 0.015 ng/ml (0-0.045) Pro-B-Type Natriuretic Peptide 330 pg/ml (0-1800) Total Protein 6.1 gm/dl (6.4-8.2) Albumin 2.9 gm/dl (3.4-5.0) Lipase 182 U/L (73-393) Laboratory results per my review. ECG Indication: SOB/dyspnea Rate (beats per minute): 87 Rhythm: normal sinus Findings: Q waves (Inferior), other (normal axis) ED Course ED COURSE: Vital signs were reviewed and showed normal vitals. The patients medical record was reviewed The above diagnostic studies were performed and reviewed. ED treatments and interventions as stated above. 1140: The patient was evaluated in room A12B. A complete history and physical examination was performed. 1335: I spoke with Dr. Caceres. We discussed the patient's case. He states that the last time she was admitted she had over diuresis so nephrology recommended that she stopped her Lasix. The patient has had a 15 pound weight gain in the past [address] Caceres started her on Lasix every other day and she continued to gain weight so he increased it to daily. She has continued to gain weight. 1341: Upon reevaluation, the patient is resting comfortably. I discussed my findings with the patient and she understands and agrees with the treatment plan. Based on the patients age, coexisting illnesses, exam and lab findings the decision to treat as an inpatient was made. The patient remained stable while under my care. The patient will be evaluated for further management. 1342. I discussed the patient's case with Alem Renteria PA-C. The patient [facility] be [facility] for further management. Medical Decision Differential diagnoses includes but is not limited to pneumonia, bronchitis, COPD/Asthma exacerbation, pneumothorax, pulmonary embolism, congestive heart failure, acute coronary syndrome. Patient is an 86-year-old female who presents the ER for increased swelling in her lower extremities associated with shortness of breath with exertion. She does have a history of CHF. She was previously admitted and discharged for single be secondary to overdiuresis. Following discharge she was instructed not to return to Lasix. PCP note she has been having increased swelling and a 15 pound weight gain. He placed her on Lasix every other day and eventually moved to Lasix daily. The swelling has continued and shortness of breath has worsened. She is sent in today for further evaluation. CBC was unremarkable. BMP shows creatinine 1.9 which is fairly consistent with previous creatinines of 1.7. Bilirubin along with LFTs and troponin was unremarkable. Lipase was normal. Chest x-ray shows no overt failure. Exam does support edema in the lower extremity is. Patient was updated at bedside. Discussed case with internal medicine per request the PCP and patient was admitted for CHF. Medication Reconcilliation Current Medication List: was personally reviewed by me Blood Pressure Screening Patient's blood pressure: Normal blood pressure Consults Time Called: 1331 Consulting Physician: Dr. Caceres Returned Call: [phone] Caceres. We discussed the patient's case. He states that the last time she was admitted she had over diuresis so nephrology recommended that she stopped her Lasix. The patient has had a 15 pound weight gain in the past [address] Caceres started her on Lasix every other day and she continued to gain weight so he increased it to daily. She has continued to gain weight. Additional Consults: Time Called: 133 Consulted Physician: Alem Renteria PA-C Returned Call: [phone] Additional Comments: I discussed the patient's case with Alem Renteria PA-C. The patient will be evaluated by the [facility] for further management. Impression Primary Impression: CHF (congestive heart failure) Additional Impressions: Edema SOB (shortness of breath) Scribe Attestation The scribe's documentation has been prepared under my direction and personally reviewed by me in its entirety. I confirm that the note above accurately reflects all work, treatment, procedures, and medical decision making performed by me. Departure Information Dispostion Being Evaluated By Hospitalist Referrals Van Ott M.D. (PCP) Patient Instructions My [facility] Problem Qualifiers Primary Impression: CHF (congestive heart failure) Congestive heart failure type: unspecified congestive heart failure type Congestive heart failure chronicity: unspecified congestive heart failure chronicity Qualified Codes: I50.9 - Heart failure, unspecified Additional Impressions: Edema Edema type: unspecified Qualified Codes: R60.9 - Edema, unspecified
[2017-05-08] MEDS: INSULIN ASPART 100 UNITS/ML 3 ML PEN SC SCH ×2 (16:00→20:21)
[2017-05-08 16:45] LABS: THYROID STIMULATING HORMONE 0.446 uIu/ml (0.300-4.500)
[2017-05-08 17:10] LABS: PROTHROMBIN TIME (PATIENT) 10.7 SECONDS (9.0-12.0)
[2017-05-08] MEDS: CIPROFLOXACIN / D5W 200 MG in PREMIXED IN D5W 100 ML IV SCH (18:30)
[2017-05-08 18:40] VITALS: BP 155/79; PULSE 75; TEMP 36.5; O2SAT 99
[2017-05-08 18:52] LABS: URINE APPEARANCE CLEAR (CLEAR); URINE BILIRUBIN NEG (NEG); URINE COLOR YELLOW; URINE EPITHELIAL CELL AUTO 0-5 /lpf (0-5); URINE NITRITE NEG (NEG); URINE PH 6.5 (4.5-7.5); URINE SPECIFIC GRAVITY 1.014 (1.000-1.030); UROBILINOGEN NEG (NEG); ZZURINE CULT IF INDIC CATH YES
[2017-05-08 18:59] LABS: MANUAL MICROSCOPIC REQUIRED? NO; REVIEW REQ? NO
[2017-05-08] MEDS: HEPARIN SOD 5000 UNIT/0.5 ML CARP SQ SCH (20:25)
--- NOTE | 2017-05-08 21:31 | DIAGNOSTIC IMAGING REPORT ---
ULTRASOUND BILATERAL LOWER EXTREMITY VENOUS CLINICAL HISTORY: Lower extremity edema. COMPARISON STUDY: Bilateral lower extremity venous ultrasound dated 10/11/2016. TECHNIQUE: Real-time, grayscale, and color Doppler sonography of the deep veins of the right and left lower extremity was performed from the inguinal crease to the calf. Compression and augmentation were utilized. FINDINGS: There is no sonographic evidence of deep venous thrombosis identified in the right or left lower extremity. The common femoral, superficial femoral, and popliteal veins are patent and normally compressible bilaterally. The greater saphenous vein and the profunda femoris vein at the junction with the common femoral vein are clear in both legs. The visualized calf veins are patent bilaterally. IMPRESSION: There is no sonographic evidence of deep venous thrombosis identified in the right or left lower extremity. Electronically signed by: Quang Gomez M.D. 05/08/2017 9:29 PM Dictated Date/Time: 05/08/2017 9:29 PM
--- NOTE | 2017-05-08 22:32 | DIAGNOSTIC IMAGING REPORT ---
BONY ORBITS 3 VIEWS CLINICAL HISTORY: MRI clearance. FINDINGS: 3 views of the bony orbits are obtained. No prior studies are available for comparison at the time of dictation. There is no radiodense/metallic foreign body seen in the region of the bony orbits. The bony orbits are intact as imaged. The visualized paranasal sinuses and the mastoid air cells appear clear. The imaged calvarium appears intact. IMPRESSION: There is no radiodense/metallic foreign body seen in the region of the bony orbits. Electronically signed by: Quang Gomez M.D. 05/08/2017 10:31 PM Dictated Date/Time: 05/08/2017 10:30 PM
--- NOTE | 2017-05-08 22:34 | DIAGNOSTIC IMAGING REPORT ---
KUB CLINICAL HISTORY: MRI clearance. FINDINGS: 2 AP supine abdominal radiographs are correlated with abdominal CT dated 08/11/2016. There is a nonobstructed abdominal bowel gas pattern noting moderate colonic fecal retention. Calcified phleboliths are present in the pelvis. No radiodense/metallic foreign body is seen. There is advanced lumbosacral spondylosis and scoliosis. The bony pelvis appears intact. The lung bases are clear as imaged. The mitral annulus is densely calcified. IMPRESSION: 1. Nonobstructed abdominal bowel gas pattern. 2. No radiodense/metallic foreign body is seen. 3. Advanced lumbosacral spondylosis and scoliosis. Electronically signed by: Quang Gomez M.D. 05/08/2017 10:32 PM Dictated Date/Time: 05/08/2017 10:31 PM
[2017-05-09] VITALS (7 sets, daily range): BP systolic 102–185; BP diastolic 66–96; PULSE 77–108; TEMP 36.4–36.7; O2SAT 96–98
[2017-05-09 06:57] LABS: HEMATOCRIT 32.1 % (37-47); MEAN CELL VOLUME 80.5 fL (80-100); MEAN CORPUSCULAR HEMOGLOBIN 26.3 pg (25-34); MEAN CORPUSCULAR HGB CONC 32.7 g/dl (32-36); PLATELET COUNT 177 K/uL (130-400); RED BLOOD COUNT 3.99 M/uL (4.2-5.4); WHITE BLOOD COUNT 5.73 K/uL (4.8-10.8)
--- NOTE | 2017-05-09 07:01 | DIAGNOSTIC IMAGING REPORT ---
MRI OF THE SACRUM WITHOUT CONTRAST CLINICAL HISTORY: Urinary incontinence. Evaluate for cauda equina syndrome. COMPARISON STUDY: CT of the abdomen and pelvis August 11, 2016. TECHNIQUE: Utilizing 1.5 Erica magnet and dedicated coil, multiplanar, multiecho imaging of the sacrum was performed without IV contrast. FINDINGS: Incidental note is made of apparent endometrial thickening, measuring 8 mm in thickness. Alternatively, this could reflect fluid within the endometrial canal. This is abnormal in a postmenopausal patient. No marrow replacement or marrow edema is identified within the sacrum or the coccyx. There is no evidence for fracture. No intracanalicular mass or fluid collection is shown within the sacral canal. The sacral neural foramen appear patent. The central canal within the sacrum is patent. Paravertebral soft tissues are unremarkable. Lumbar spine will be reported separately. A 3.8 x 3.5 cm T2 hyperintense focus along the left anterior aspect of the L4-L5 vertebra corresponds to a water attenuation abnormality on prior CTs and has benign imaging characteristics. IMPRESSION: 1. No acute abnormality within the sacrum by MRI. Patent central canal and neural foramen. No sacral fracture or marrow replacement. 2. Apparent endometrial thickening, measuring 8 mm. This could reflect endometrial thickening or fluid within the endometrial canal and is abnormal in a postmenopausal patient. This could be correlated with history of postmenopausal bleeding and pelvic ultrasound. Electronically signed by: Ky Bentley M.D. 05/09/2017 7:00 AM Dictated Date/Time: 05/09/2017 6:47 AM
[2017-05-09 07:32] LABS: BUN/CREATININE RATIO 14.9 (10-20); CALCIUM 8.7 mg/dl (8.5-10.1); CREATININE 1.7 mg/dl (0.60-1.20); MAGNESIUM 2.1 mg/dl (1.8-2.4); POTASSIUM 3.8 mmol/L (3.5-5.1)
[2017-05-09 07:34] LABS: ESTIMATED AVERAGE GLUCOSE 163 mg/dl; HA1C FLAG Normal (Normal)
[2017-05-09 07:35] LABS: ALB/GLOB RATIO 0.9 (0.9-2)
--- NOTE | 2017-05-09 08:03 | DIAGNOSTIC IMAGING REPORT ---
LUMBAR SPINE MRI HISTORY: Urinary incontinence. Rule out cauda equina syndrome (please also include sacrum in imaging) TECHNIQUE: Multiplanar multisequence MRI of the lumbar spine was performed without the use of contrast. COMPARISON: Lumbar spine 09/12/2010. FINDINGS: For the purpose of the report the L5-S1 disc space will be located on axial image 27 of 30. Moderate to severe levoscoliosis. Subcentimeter left renal T2 hyperintense lesions likely represent cysts. There is a stable 3.1 cm T2 hyperintense lobular lesion anterior to the L4-5 disc space. This is stable dating back to a [address] and is therefore considered to be benign. Alignment is intact. Moderate disc space narrowing at L1-L2, L2-L3, L3-L4, and L5-S1. Mild disc space narrowing at L4-L5 and within the lower thoracic spine. The conus terminates at the L1-L2 disc space level. The tiny syrinx at the distal thoracic spinal cord which measures 9 mm in length and 1 mm diameter. Severe facet degenerative changes within the lower lumbar spine. No fractures within the lumbar spine. L1-L2: Small broad-based posterior disc bulge without significant central canal or left-sided neural foraminal narrowing. There is mild right-sided neural foraminal narrowing. L2-L3: Small broad-based posterior disc bulge without significant central canal or left-sided neural foraminal narrowing. There is mild right-sided neural foraminal narrowing. L3-L4: Small broad-based posterior disc bulge without significant central canal or left-sided neural foraminal narrowing. There is moderate right-sided neural foraminal narrowing. L4-L5: Broad-based posterior disc bulge with facet hypertrophy resulting in mild central canal narrowing. There is moderate left neural foraminal narrowing. L5-S1: No significant central canal or right-sided neural foraminal narrowing. There is moderate to severe left-sided neural foraminal narrowing. IMPRESSION: 1. Multilevel lumbar spondylosis as described above resulting in bilateral neural foraminal narrowing. This is primarily a result of the moderate to severe levoscoliosis. 2. No evidence for cauda equina compression. 3. Tiny syrinx at the distal thoracic cord. Electronically signed by: Rajendra Ryan M.D. 05/09/2017 8:02 AM Dictated Date/Time: 05/09/2017 7:46 AM
[2017-05-09] MEDS: INSULIN ASPART 100 UNITS/ML 3 ML PEN SC SCH ×4 (08:46→20:39)
[2017-05-09] MEDS: HEPARIN SOD 5000 UNIT/0.5 ML CARP SQ SCH ×2 (08:52→20:42)
[2017-05-09] MEDS: PANTOprazole SOD 40 MG TAB PO SCH (10:34)
[2017-05-09] MEDS: FUROSEMIDE 20 MG TAB PO SCH (10:34)
[2017-05-09] MEDS: ACETAMINOPHEN 325 MG TAB PO PRN (14:55)
--- NOTE | 2017-05-09 16:55 | ECHOCARDIOGRAM REPORT ---
*NOTICE TO RECEIVING [employer] This information is strictly Confidential and protected under [place] law. [place] law prohibits you from making any further disclosure of this information unless further disclosure is expressly permitted by the written consent of the person to whom it pertains or is authorized by law. A general authorization for the release of medical or other information is not sufficient for this purpose. Hospital accepts no responsibility if the information is made available to any other person, INCLUDING THE PATIENT. Interpretation Summary * Name: OSBALDO WYLIE Study Date: 05/09/2017 07:07 AM BP: 102/66 mmHg * Patient Location: [facility]\S\N283\S\2 HR: 77 * : 1930 (M/d/yyyy) Gender: Female Height: 56 in * Age: 86 yrs Ethnicity: [place] Weight: 132 lb * Ordering Physician: Aaliyah Castillo * Referring Physician: Van Ott * Performed By: Rebecca Gabriel * * Reason For Study: CHF * BSA: 1.5 m2 * Compared to prior study, there is no significant change. * -- Conclusions -- * Ejection Fraction = 65-70%. * There is mild concentric left ventricular hypertrophy. * Aortic valve sclerosis mild, without significant aortic valvular stenosis. * There is moderate mitral annular calcification. * There is mild mitral regurgitation. * Grade I diastolic dysfunction, (abnormal relaxation pattern). Procedure Details * A complete two-dimensional transthoracic echocardiogram was performed (2D, M-mode, Doppler and color flow Doppler). Left Ventricle * The left ventricle is normal in size. * There is mild concentric left ventricular hypertrophy. * Ejection Fraction = 65-70%. * Left ventricular systolic function is normal. * The left ventricular wall motion is normal. Right Ventricle * The right ventricle is normal size. * The right ventricular systolic function is normal as assessed by tricuspid annular plane systolic excursion (TAPSE) (normal >1.5 cm). Atria * The left atrium is moderately dilated. * Right atrial size is normal. * There is no evidence of atrial septal defect, but resolution does not allow assessment for a patent foramen ovale. Mitral Valve * There is moderate mitral annular calcification. * There is no mitral valve stenosis. * There is mild mitral regurgitation. Tricuspid Valve * The tricuspid valve is normal. * There is no tricuspid stenosis. * Significant tricuspid regurgitation is absent. Aortic Valve * The aortic valve is trileaflet. * Aortic valve sclerosis mild, without significant aortic valvular stenosis. * Aortic stenosis is absent. * There is no significant aortic regurgitation. Pulmonic Valve * The pulmonary valve is not well seen, but the Doppler examination is normal without significant regurgitation or stenosis. Great Vessels * The aortic root is normal size. Pericardium/Pleural * There is no pericardial effusion. Great Vessels * Normal inferior vena cava diameter and respiratory variation suggests normal central venous pressure. Left Ventricular Diastolic Function * Grade I diastolic dysfunction, (abnormal relaxation pattern). MMode 2D Measurements and Calculations IVSd 1.2 cm IVSs 1.3 cm LVIDd 4.2 cm LVIDs 2.6 cm LVPWd 1.3 cm LVPWs 1.2 cm IVS/LVPW 0.92 FS 38.0 % EDV(Teich) 79.0 ml ESV(Teich) 24.8 ml EF(Teich) 68.6 % EDV(cubed) 74.6 ml ESV(cubed) 17.8 ml EF(cubed) 76.2 % % IVS thick 12.6 % % LVPW thick -10.11 % LV mass(C)d 186.7 grams LV mass(C)dI 125.5 grams/m\S\2 LV mass(C)s 96.3 grams LV mass(C)sI 64.7 grams/m\S\2 CO(Teich) 3.7 l/min CI(Teich) 2.5 l/min/m\S\2 SV(Teich) 54.1 ml SI(Teich) 36.4 ml/m\S\2 CO(cubed) 3.9 l/min CI(cubed) 2.6 l/min/m\S\2 SV(cubed) 56.8 ml SI(cubed) 38.2 ml/m\S\2 ACS 1.4 cm LA dimension 4.2 cm asc Aorta Diam 2.6 cm LVOT diam 1.5 cm LVOT area 1.8 cm\S\2 LVAd ap4 18.1 cm\S\2 LVLd ap4 6.6 cm EDV(MOD-sp4) 40.7 ml LVAs ap4 9.1 cm\S\2 LVLs ap4 5.3 cm ESV(MOD-sp4) 14.0 ml EF(MOD-sp4) 65.6 % LVAd ap2 18.2 cm\S\2 LVLd ap2 6.4 cm EDV(MOD-sp2) 42.6 ml LVAs ap2 9.3 cm\S\2 LVLs ap2 5.2 cm ESV(MOD-sp2) 14.1 ml EF(MOD-sp2) 66.9 % CO(MOD-sp4) 1.8 l/min CI(MOD-sp4) 1.2 l/min/m\S\2 SV(MOD-sp4) 26.7 ml SI(MOD-sp4) 17.9 ml/m\S\2 CO(MOD-sp2) 1.9 l/min CI(MOD-sp2) 1.3 l/min/m\S\2 SV(MOD-sp2) 28.5 ml SI(MOD-sp2) 19.2 ml/m\S\2 Doppler Measurements and Calculations MV E max sher 118.4 cm/sec MV A max sher 143.1 cm/sec MV E/A 0.83 MV dec time 0.24 sec Ao V2 max 180.5 cm/sec Ao max PG 13.0 mmHg Ao max PG (full) 6.3 mmHg YU(V,A) 1.3 cm\S\2 YU(V,D) 1.3 cm\S\2 LV V1 max PG 6.7 mmHg LV V1 max 129.5 cm/sec MR max sher 539.8 cm/sec MR max PG 117.8 mmHg PA V2 max 94.6 cm/sec PA max PG 3.6 mmHg TR max sher 257.9 cm/sec
[2017-05-09] MEDS: CIPROFLOXACIN / D5W 200 MG in PREMIXED IN D5W 100 ML IV SCH (18:04)
--- NOTE | 2017-05-09 20:43 | Progress Note ---
Medicine Progress Note Date & Time of Visit: May 09, 2017 at 20:30. Subjective patient seen resting in bed, comfortable in good spirits oriented x 2 states dysuria and incontinence is improving denies abdominal pain, nausea/vomiting, fever/chills denies chest pain, dyspnea, palpitations no leg pain states she ambulated today with no problems no other symptoms Objective Last 8 Hrs Date Time Temp Pulse Resp B/P (MAP) Pulse Ox O2 Delivery O2 Flow Rate FiO2 05/09/17 20:00 98 Room Air 05/09/17 19:39 36.6 77 18 145/77 (99) 98 Room Air 05/09/17 16:00 Room Air 05/09/17 15:37 36.4 88 18 151/71 (97) 96 Room Air Physical Exam: General- adult Eyes- EOMI, anicteric ENT- oropharynx clear Neck- supple, no JVD, no adenopathy, no thyromegaly Lungs- clear breath sounds bilaterally Heart- regular rhythm; no murmur, normal rate Abdomen- normal bowel sounds, soft, nontender Extremities- grade 1 lower leg edema, no calf tenderness Neuro- alert, oriented x 3;no gross focal deficits Skin- warm & dry Laboratory Results: Last 24 Hours Test 05/09/17 06:33 05/09/17 06:40 05/09/17 11:35 05/09/17 16:26 Bedside Glucose 133 mg/dl 185 mg/dl 122 mg/dl White Blood Count 5.73 K/uL Red Blood Count 3.99 M/uL Hemoglobin 10.5 g/dL Hematocrit 32.1 % Mean Corpuscular Volume 80.5 fL Mean Corpuscular Hemoglobin 26.3 pg Mean Corpuscular Hemoglobin Concent 32.7 g/dl RDW Standard Deviation 53.7 fL RDW Coefficient of Variation 18.3 % Platelet Count 177 K/uL Sodium Level 144 mmol/L Potassium Level 3.8 mmol/L Chloride Level 114 mmol/L Carbon Dioxide Level 22 mmol/L Anion Gap 8.0 mmol/L Blood Urea Nitrogen 25 mg/dl Creatinine 1.70 mg/dl Est Creatinine Clear Calc Drug Dose 18.8 ml/min Estimated GFR () 31.3 Estimated GFR (Non- 27.0 BUN/Creatinine Ratio 14.9 Random Glucose 135 mg/dl Estimated Average Glucose 163 mg/dl Hemoglobin A1c 7.3 % Calcium Level 8.7 mg/dl Magnesium Level 2.1 mg/dl Total Bilirubin 0.6 mg/dl Aspartate Amino Transf (AST/SGOT) 10 U/L Alanine Aminotransferase (ALT/SGPT) 11 U/L Alkaline Phosphatase 97 U/L Total Protein 6.3 gm/dl Albumin 3.0 gm/dl Globulin 3.3 gm/dl Albumin/Globulin Ratio 0.9 Test 05/09/17 20:10 Bedside Glucose 148 mg/dl Assessment & Plan This is a 86yo female with a PMH of CKD IV, DM II, diastolic HF, hypothyroidism , h/o syncope who presents with "kidney problems" over the past few days. Urinary incontinence - MRI Sacrum unremarkable - Urine culture: gram negative bacilli - continue Cipro IV day 2 for now Endom Thickening - will need Pelvic US Acute on Chronic diastolic CHF: - echo:-- Conclusions -- * Ejection Fraction = 65-70%. * There is mild concentric left ventricular hypertrophy. * Aortic valve sclerosis mild, without significant aortic valvular stenosis. * There is moderate mitral annular calcification. * There is mild mitral regurgitation. * Grade I diastolic dysfunction, (abnormal relaxation pattern). -- possible poor adherence with lasix and dietary indiscretion - Lasix 20mg po daily resumed leg edema improving will continue to monitor CKD Stage 4: -Cr has ranged from 1.5-1.9 during 2017 -Currently bumped to 1.9 -Follows out-patient with nephrology who advised to stoplasix previously but it was continued due to significant LE swelling -Per March PCP note, lasix was restarted at 20mg every other day. Unclear if patient has been adherent to this at home -On 20mg PO lasix in-patient for LE swelling -- crea 1.7 stable DM II: -Hgb a1c in 10/02 was 6.8 --> 7.3 -Does not take any medications at home -BG checks ACHS -SSI -- will need Metformin on d/c Hypothyroidism: -Denies taking home medications -Ordered TSH/Free T4 H/o syncope: -Admitted for syncopal episode in September 17 overdiuresis -Denies any recent syncopal episodes DVT Ppx: Heparin SQ Code status: DNR, per discussion with patient and advanced directive PCP: Tru Dispo: pending Current Inpatient Medications: Current Inpatient Medications Medications (Trade) Dose Ordered Sig/Mayte Route Start Time Stop Time Status Last Admin Dose Admin Acetaminophen (Tylenol Tab) 650 mg Q4H PRN PO 05/08/17 15:15 06/07/17 15:14 05/09/17 14:55 650 MG Ondansetron HCl (Zofran Inj) 4 mg Q6H PRN IV 05/08/17 15:15 06/07/17 15:14 Heparin Sodium (Porcine) (Heparin Sq 5000 Unit/0.5ml) 5,000 unit Q12 SQ 05/08/17 21:00 06/07/17 20:59 05/09/17 08:52 5,000 UNIT Miscellaneous (Iv Fluids Completed) 1 ea PRN PRN N/A 05/08/17 15:30 05/08/18 15:29 Insulin Aspart (novoLOG ASPART) SLIDING SCALE If C... ACHS SC 05/08/17 16:00 06/07/17 15:59 05/09/17 13:42 4 UNITS Glucose (Glucose 40% Gel) 15-30 GRAMS 15 GRAMS... UD PRN PO 05/08/17 15:30 06/07/17 15:29 Glucose (Glucose Chew Tab) 4-8 Tablets 4 Tabl... UD PRN PO 05/08/17 15:30 06/07/17 15:29 Dextrose (Dextrose 50% 50ML Syringe) 25-50ML OF 50% DW IV FOR... UD PRN IV 05/08/17 15:30 06/07/17 15:29 Glucagon (Glucagon Inj) 1 mg UD PRN SQ 05/08/17 15:30 06/07/17 15:29 Furosemide (Lasix Tab) 20 mg DAILY PO 05/09/17 09:00 06/08/17 08:59 05/09/17 10:34 20 MG Pantoprazole Sodium (Protonix Tab) 40 mg DAILY PO 05/09/17 09:00 06/08/17 08:59 05/09/17 10:34 40 MG Ciprofloxacin/ Dextrose 200 mg/ Prmx 100 ml @ 100 mls/hr Q24H IV 05/08/17 18:00 05/13/17 17:59 05/09/17 18:04 100 MLS/HR
[2017-05-10] VITALS: BP 123/75; PULSE 83; TEMP 37.1; O2SAT 95; O2SAT 98
[2017-05-10 07:18] VITALS: BP 153/77; PULSE 92; TEMP 36.6; O2SAT 95
[2017-05-10] MEDS: PANTOprazole SOD 40 MG TAB PO SCH (08:09)
[2017-05-10] MEDS: FUROSEMIDE 20 MG TAB PO SCH (08:09)
[2017-05-10] MEDS: INSULIN ASPART 100 UNITS/ML 3 ML PEN SC SCH ×3 (08:16→16:30)
[2017-05-10] MEDS: HEPARIN SOD 5000 UNIT/0.5 ML CARP SQ SCH (08:16)
--- NOTE | 2017-05-10 08:54 | Clinical Documentation Query ---
CLINICAL DOCUMENTATION QUERY 86 yo female presented with urinary incontinence. Urine culture + for gram negative bacilli and patient was placed on Cipro IV. In your clinical opinion is this patient being managed for: ( ) Urinary tract infection ( ) Not Agree Please clarify and document your clinical opinion in the progress notes and discharge summary. Terms such as "probable", "suspected", "likely", "questionable", "possible", or "still to be ruled out" are acceptable. IF IN AGREEMENT, YOU MUST DOCUMENT ABOVE DIAGNOSTIC STATEMENT IN DAILY PROGRESS NOTES AND DISCHARGE SUMMARY. This document is not part of the patient's record. Thank You, Mary Benito RN [phone]
--- NOTE | 2017-05-10 10:46 | Progress Note ---
Medicine Progress Note Date & Time of Visit: May 10, 2017 at 10:36. Subjective patient seen sitting up in bedside chair in good spirits oriented to person and place denies abdominal pain, nausea/vomiting, dysuria, incontinence denies leg pain, dyspnea, chest pain no other symptoms Objective Last 8 Hrs Date Time Temp Pulse Resp B/P (MAP) Pulse Ox O2 Delivery O2 Flow Rate FiO2 05/10/17 07:44 Room Air 05/10/17 07:18 36.6 92 18 153/77 (102) 95 Room Air Physical Exam: General- oriented x 2, not in distress, speaks in sentences with no effort Eyes- anicteric Neck- no JVD Lungs- clear breath sounds bilaterally, no rales/wheezes Heart- regular rhythm; no murmur, normal rate Abdomen- normal bowel sounds, soft, nontender Extremities- mild lower leg edema, no calf tenderness Neuro- alert, oriented x 3;no gross focal deficits Skin- warm & dry Laboratory Results: Last 24 Hours Test 05/09/17 11:35 05/09/17 16:26 05/09/17 20:10 05/10/17 07:56 Bedside Glucose 185 mg/dl 122 mg/dl 148 mg/dl 137 mg/dl Test 05/10/17 10:02 Assessment & Plan This is a 86yo female with a PMH of CKD IV, DM II, diastolic HF, hypothyroidism , h/o syncope who presents with "kidney problems" over the past few days. Urinary incontinence, likely from Klebsiella UTI - MRI Sacrum unremarkable - Urine culture: pansensitive Klebsiella - continue Cipro IV day 3 for now Endom Thickening - will need Pelvic US as outpatient Acute on Chronic diastolic CHF: - echo:-- Conclusions -- * Ejection Fraction = 65-70%. * There is mild concentric left ventricular hypertrophy. * Aortic valve sclerosis mild, without significant aortic valvular stenosis. * There is moderate mitral annular calcification. * There is mild mitral regurgitation. * Grade I diastolic dysfunction, (abnormal relaxation pattern). -- possible poor adherence with lasix and dietary indiscretion - Lasix 20mg po daily resumed leg edema improving will continue to monitor - d/c on Lasix 20mg 3x a week CKD Stage 4: -Cr has ranged from 1.5-1.9 during 2017 -Currently bumped to 1.9 -Follows out-patient with nephrology who advised to stop lasix previously but it was continued due to significant LE swelling -Per March PCP note, lasix was restarted at 20mg every other day. Unclear if patient has been adherent to this at home -On 20mg PO lasix in-patient for LE swelling -- crea 1.7 stable DM II: -Hgb a1c in 10/02 was 6.8 --> 7.3 -Does not take any medications at home -BG checks ACHS -SSI -- will need oral agent on d/c Hypothyroidism: -Denies taking home medications -Ordered TSH/Free T4 : normal H/o syncope: -Admitted for syncopal episode in September 17 overdiuresis -Denies any recent syncopal episodes DVT Ppx: Heparin SQ Code status: DNR, per discussion with patient and advanced directive PCP: Tru Dispo: case management recommend patient to transition to SNF due to concerns of poor adherence to medications and poor hygiene at home patient adamant that she would like to go back home- lives in a trailer with significant other Psych consult placed to assess for decision making capacity to go back home Current Inpatient Medications: Current Inpatient Medications Medications (Trade) Dose Ordered Sig/Mayte Route Start Time Stop Time Status Last Admin Dose Admin Acetaminophen (Tylenol Tab) 650 mg Q4H PRN PO 05/08/17 15:15 06/07/17 15:14 05/09/17 14:55 650 MG Ondansetron HCl (Zofran Inj) 4 mg Q6H PRN IV 05/08/17 15:15 06/07/17 15:14 Heparin Sodium (Porcine) (Heparin Sq 5000 Unit/0.5ml) 5,000 unit Q12 SQ 05/08/17 21:00 06/07/17 20:59 05/10/17 08:16 5,000 UNIT Miscellaneous (Iv Fluids Completed) 1 ea PRN PRN N/A 05/08/17 15:30 05/08/18 15:29 Insulin Aspart (novoLOG ASPART) SLIDING SCALE If C... ACHS SC 05/08/17 16:00 06/07/17 15:59 05/10/17 08:16 2 UNITS Glucose (Glucose 40% Gel) 15-30 GRAMS 15 GRAMS... UD PRN PO 05/08/17 15:30 06/07/17 15:29 Glucose (Glucose Chew Tab) 4-8 Tablets 4 Tabl... UD PRN PO 05/08/17 15:30 06/07/17 15:29 Dextrose (Dextrose 50% 50ML Syringe) 25-50ML OF 50% DW IV FOR... UD PRN IV 05/08/17 15:30 06/07/17 15:29 Glucagon (Glucagon Inj) 1 mg UD PRN SQ 05/08/17 15:30 06/07/17 15:29 Furosemide (Lasix Tab) 20 mg DAILY PO 05/09/17 09:00 06/08/17 08:59 05/10/17 08:09 20 MG Pantoprazole Sodium (Protonix Tab) 40 mg DAILY PO 05/09/17 09:00 06/08/17 08:59 05/10/17 08:09 40 MG Ciprofloxacin/ Dextrose 200 mg/ Prmx 100 ml @ 100 mls/hr Q24H IV 05/08/17 18:00 05/13/17 17:59 05/09/17 18:04 100 MLS/HR
[2017-05-10] MEDS: ACETAMINOPHEN 325 MG TAB PO PRN (10:55)
[2017-05-10 11:39] LABS: BUN/CREATININE RATIO 12.5 (10-20); CALCIUM 9.3 mg/dl (8.5-10.1); CREATININE 1.9 mg/dl (0.60-1.20); POTASSIUM 3.5 mmol/L (3.5-5.1)
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
[2017-05-10 14:57] VITALS: BP 153/77; PULSE 92; TEMP 36.6; O2SAT 95
[2017-05-10] MEDS ORDERED: CPR500 PO (17:06)
[2017-05-10] MEDS ORDERED: FURO20TA PO (17:06)
--- NOTE | 2017-05-10 17:10 | Discharge Instructions ---
Discharge Instructions Date of Service May 10, 2017. Admission Reason for Admission: Swelling In Legs;Kidney Problems Discharge Discharge Diagnosis / Problem: ACUTE EXACERBATION OF DIASTOLIC CHF, URINARY TRACT INFECTION Discharge Goals Goal(s): Diagnostic testing, Therapeutic intervention Activity Recommendations Activity Limitations: as noted below (NO HEAVY EXERTION UNTIL RE-EVALUATED BY PRIMARY CARE PHYSICIAN) Lifting Limitations: until after follow-up appointment Exercise/Sports Limitations: until after follow-up appointment . Instructions / Follow-Up Instructions / Follow-Up PLEASE REVIEW YOUR NEW MEDICATION LIST AND FOLLOW INSTRUCTIONS CAREFULLY. CALL YOUR PRIMARY CARE PHYSICIAN OR RETURN TO ER IMMEDIATELY IF WITH INCREASING LEG SWELLING, SHORTNESS OF BREATH FEVER/CHILLS, NAUSEA/VOMITING, ABDOMINAL PAIN, URINARY PROBLEMS FOLLOW UP WITH DR. WEBB ON SATURDAY MAY 13, 2017 AT 10:45AM. Call your Primary Care doctor if any of the following symptoms or problems start or get worse: * Shortness of breath or difficulty breathing * Wake up at night short of breath * Chest pain * Cough * Swelling of your hands, feet, or legs * More fatigued or tired with your normal activity * Palpitations - sudden fast heart beats WEIGHT * Weigh yourself every morning after using the bathroom. * Use the same scale. * Wear the same amount of clothing. * Write your weight down on a chart. * Call your Primary Care doctor if you gain more than 2-3 pounds in 1-2 days. MEDICATIONS * Use this discharge instruction sheet for medication instructions. * Take your medications at the time your doctor ordered. * Do not skip a dose of your medicines. * If you miss a dose of medicine, take it as soon as possible, but DO NOT DOUBLE A DOSE. * Read your medicine information when you get home. * Know all of the side effects of your medicine. If in doubt, ask your pharmacist * Call your Primary Care doctor's office if you have any side effects. * Be sure all of your doctors know what medicine and herbs you take (including cold, flu, and herbal medicine). Take the following with you to your follow-up doctor appointments: * Weight Chart * Medication List * List of questions Do not drink excessive alcohol, beer or wine. Current Hospital Diet Patient's current hospital diet: Diabetes Type 2 Diet, Renal Diet Discharge Diet Recommended Diet: Low Sodium Diet (2gm Na), Diabetes Type 2 Diet Fluid Restriction: 2000 ml (8 cups) Pending Studies Studies pending at discharge: yes List of pending studies: REPEAT BLOOD WORK C/O PRIMARY CARE PHYSICIAN Laboratory Results Hemoglobin A1c Test 05/09/17 06:40 Range/Units Estimated Average Glucose 163 mg/dl Hemoglobin A1c 7.3 H 4.5-5.6 % Medical Emergencies . Who to Call and When: Call 911 or go to the Emergency Room if: * If at any time you feel your situation is an emergency * You have tightness or pain in your chest that does not go away with rest or Nitroglycerin * You are very short of breath even with rest . Non-Emergent Contact Non-Emergency issues call your: Primary Care Provider Call Non-Emergent contact if: you have a fever, you have any medication questions . . "Provider Documentation" section prepared by Dhruv Agee. . VTE Core Measure Inpt VTE Proph given/why not?: Unfractionated heparin SQ
[2017-05-10] MEDS ORDERED: MCRK20 PO (17:17)
--- NOTE | 2017-05-10 17:23 | Discharge Summary ---
Discharge Summary Date of Service May 10, 2017. Discharge Summary Admission Date: May 09, 2017 at 09:25 Discharge Date: May 10, 2017 Discharge Disposition: Home with services Principal Diagnosis: Urinary incontinence, likely from Klebsiella UTI Secondary Diagnoses/Problems: Please refer to hospital course below. Procedures: MRI OF LUMBAR SPINE IMPRESSION: 1. Multilevel lumbar spondylosis as described above resulting in bilateral neural foraminal narrowing. This is primarily a result of the moderate to severe levoscoliosis. 2. No evidence for cauda equina compression. 3. Tiny syrinx at the distal thoracic cord. MRI OF THE SACRUM WITHOUT CONTRAST CLINICAL HISTORY: Urinary incontinence. Evaluate for cauda equina syndrome. COMPARISON STUDY: CT of the abdomen and pelvis August 11, 2016. TECHNIQUE: Utilizing 1.5 Erica magnet and dedicated coil, multiplanar, multiecho imaging of the sacrum was performed without IV contrast. FINDINGS: Incidental note is made of apparent endometrial thickening, measuring 8 mm in thickness. Alternatively, this could reflect fluid within the endometrial canal. This is abnormal in a postmenopausal patient. No marrow replacement or marrow edema is identified within the sacrum or the coccyx. There is no evidence for fracture. No intracanalicular mass or fluid collection is shown within the sacral canal. The sacral neural foramen appear patent. The central canal within the sacrum is patent. Paravertebral soft tissues are unremarkable. Lumbar spine will be reported separately. A 3.8 x 3.5 cm T2 hyperintense focus along the left anterior aspect of the L4-L5 vertebra corresponds to a water attenuation abnormality on prior CTs and has benign imaging characteristics. IMPRESSION: 1. No acute abnormality within the sacrum by MRI. Patent central canal and neural foramen. No sacral fracture or marrow replacement. 2. Apparent endometrial thickening, measuring 8 mm. This could reflect endometrial thickening or fluid within the endometrial canal and is abnormal in a postmenopausal patient. This could be correlated with history of postmenopausal bleeding and pelvic ultrasound. DOPPLER US LOWER EXT CLINICAL HISTORY: Lower extremity edema. COMPARISON STUDY: Bilateral lower extremity venous ultrasound dated 10/11/2016. TECHNIQUE: Real-time, grayscale, and color Doppler sonography of the deep veins of the right and left lower extremity was performed from the inguinal crease to the calf. Compression and augmentation were utilized. FINDINGS: There is no sonographic evidence of deep venous thrombosis identified in the right or left lower extremity. The common femoral, superficial femoral, and popliteal veins are patent and normally compressible bilaterally. The greater saphenous vein and the profunda femoris vein at the junction with the common femoral vein are clear in both legs. The visualized calf veins are patent bilaterally. IMPRESSION: There is no sonographic evidence of deep venous thrombosis identified in the right or left lower extremity. Pending Studies/Follow-Up: PLEASE REFER TO HOSPITAL COURSE BELOW. Medication Reconciliation New Medications: Ciprofloxacin (Ciprofloxacin HCl) 500 Mg Tab 1 TAB PO DAILY for 5 Days, #5 TABS 0 Refills Potassium Chloride (Klor-Con M20) 20 Meq Tabcr 1 TAB PO UD for 30 Days, #12 TABS 1 Refill TAKE 1 TAB PO THREE TIMES A WEEK (SAT, SAT, SAT) Changed Medications: Furosemide (Lasix) 20 Mg Tab 1 TAB PO UD for 30 Days, #12 TAB 2 Refills (Changed from: DAILY; 90; 90; Refills : 1) take 1 tab po three times a week (saturday, saturday, saturday) Continued Medications: Pantoprazole Sodium (Protonix) 40 Mg Carter 40 MG PO DAILY take 30 min. prior meal Topiramate (Topamax ) 25 Mg Tab 25 MG PO BID, TAB Admission Information HPI (per Admitting provider): This is a 86yo female with a PMH of CKD IV, DM II, diastolic HF, hypothyroidism , h/o syncope who presents with "kidney problems" over the past few days. Patient reports falling last week and injuring her back. Denies hitting her head or a LOC with the fall. States that lower back pain has been constant since then and that she has also experienced associated urinary leakage and dysuria. States that at her baseline, patient is continent and does not have urinary accidents. Also endorses worsening leg swelling over the past few weeks. Denies any CP, dyspnea, SOB, orthopnea. Does not weigh herself at home, restrict salt intake or fluid intake. Also states that she has not taken any medication at home in months. Was sent to the ED by Dr. Ott after her clinic visit today. Was admitted to [facility] in September for a syncopal episode 2/2 overdiuresis on lasix. According to chart review, lasix was stopped and patient was instructed to reduce Na intake and wear compression stockings if LE swelling returned. Due to patient's non adherence with dietary change and stockings, her PCP restarted her on Lasix 20 every other day during a follow up appointment in March. However , it is unclear whether or not patient is taking lasix at home at this point. Per discussion with patient's POA, Lori Alia, the patient lives in a trailer in [place] with Lori's brother, Sukumar. He is 67 and has intellectual disabilities but helps Bibiana take her medications each day. Lori states that Bibiana's health and ability to live at home have declined since her last admission in September. She used to have intermittent urinary incontinence, ambulate with a cane and require only some help with ADLs. Over the past few months, however, patient has become incontinent with urine and feces, leaving soiled briefs in her closet. Bibiana is unable to ambulate from room to room on her own. Lori has also noticed a decline in her short term memory and level of orientation and no longer feels that it is safe for Bibiana to live at the trailer. Physical Exam (per Admitting): General Appearance: WD/WN, no apparent distress Head: normocephalic, atraumatic Eyes: normal inspection, sclerae normal ENT: hearing grossly normal Neck: supple, no adenopathy, trachea midline Respiratory/Chest: chest non-tender, lungs clear, normal breath sounds, no respiratory distress, no accessory muscle use Cardiovascular: regular rate, rhythm (With some irregular beats), no murmur Abdomen/GI: normal bowel sounds, non tender, soft, no organomegaly ( Presence of nodular scar tissue along incision point in suprapubic area. States that it is painful but has been there since tubal ligation. ) Back: normal inspection (TTP of bilateral lower back) Extremities/Musculoskelatal: + swelling (2+ swelling of LE up to waist. Non- tender, no skin breakdown.) Neurologic/Psych: no motor/sensory deficits, alert (Oriented to person and place, not time. Seems unclear about events leading up to hospitalization. ), normal mood/affect Skin: normal color, warm/dry, no rash Hospital Course This is a 86yo female with a PMH of CKD IV, DM II, diastolic HF, hypothyroidism , h/o syncope who presents with "kidney problems" over the past few days. Urinary incontinence, likely from Klebsiella UTI - MRI Sacrum unremarkable - Urine culture: pansensitive Klebsiella - given Cipro IV x 2 days urinary symptoms improved - prescribed 5 more days of Cipro 500mg po daily Endometrial Thickening - seen on MRI Pelvis: Apparent endometrial thickening, measuring 8 mm. This could reflect endometrial thickening or fluid within the endometrial canal and is abnormal in a postmenopausal patient. This could be correlated with history of postmenopausal bleeding and pelvic ultrasound. - will need Pelvic US as outpatient Acute on Chronic diastolic CHF: - echo:-- Conclusions -- * Ejection Fraction = 65-70%. * There is mild concentric left ventricular hypertrophy. * Aortic valve sclerosis mild, without significant aortic valvular stenosis. * There is moderate mitral annular calcification. * There is mild mitral regurgitation. * Grade I diastolic dysfunction, (abnormal relaxation pattern). -- possible poor adherence with lasix and dietary indiscretion - Lasix 20mg po daily resumed leg edema improved - d/c on Lasix 20mg 3x a week with potassium 20meq po 3x a week - please monitor crea and potassium CKD Stage 4: -Cr has ranged from 1.5-1.9 during 2016 -Follows out-patient with nephrology who advised to stop lasix previously but it was continued due to significant LE swelling -Per March PCP note, lasix was restarted at 20mg every other day. Unclear if patient has been adherent to this at home -On 20mg PO lasix in-patient for LE swelling -- crea 1.9 monitor crea and K while on Lasix + po potassium DM II: - Hgb a1c in 10/02 was 6.8 --> 7.3 - Does not take any medications at home -- diabetic diet advised given CKD 4 and poor adherence with medications, will hold off on oral hypoglycemic agents for now monitor as outpatient Hypothyroidism: -Denies taking home medications -TSH/Free T4 : normal H/o syncope: -Admitted for syncopal episode in September 17 overdiuresis -Denies any recent syncopal episodes Dispo: case management recommend patient to transition to SNF due to concerns of poor adherence to medications and poor hygiene at home patient adamant that she would like to go back home- lives in a trailer with significant other understands and accepts risks of being discharged home at this time including possible recurrent infections, CHF exacerbation, deterioration of medical condition, possible falls/injuries Psych consult placed to assess for decision making capacity to go back home: patient competent to make decisions home health services set up for patient ff up with Dr. Ott next week. Total time spent on discharge = 40 minutes This includes examination of the patient, discharge planning, medication reconciliation, and communication with other providers. Discharge Instructions Discharge Instructions Date of Service May 10, 2017. Admission Reason for Admission: Swelling In Legs;Kidney Problems Discharge Discharge Diagnosis / Problem: ACUTE EXACERBATION OF DIASTOLIC CHF, URINARY TRACT INFECTION Discharge Goals Goal(s): Diagnostic testing, Therapeutic intervention Activity Recommendations Activity Limitations: as noted below (NO HEAVY EXERTION UNTIL RE-EVALUATED BY PRIMARY CARE PHYSICIAN) Lifting Limitations: until after follow-up appointment Exercise/Sports Limitations: until after follow-up appointment . Instructions / Follow-Up Instructions / Follow-Up PLEASE REVIEW YOUR NEW MEDICATION LIST AND FOLLOW INSTRUCTIONS CAREFULLY. CALL YOUR PRIMARY CARE PHYSICIAN OR RETURN TO ER IMMEDIATELY IF WITH INCREASING LEG SWELLING, SHORTNESS OF BREATH FEVER/CHILLS, NAUSEA/VOMITING, ABDOMINAL PAIN, URINARY PROBLEMS FOLLOW UP WITH PRIMARY CARE PHYSICIAN IN 1 WEEK. Call your Primary Care doctor if any of the following symptoms or problems start or get worse: * Shortness of breath or difficulty breathing * Wake up at night short of breath * Chest pain * Cough * Swelling of your hands, feet, or legs * More fatigued or tired with your normal activity * Palpitations - sudden fast heart beats WEIGHT * Weigh yourself every morning after using the bathroom. * Use the same scale. * Wear the same amount of clothing. * Write your weight down on a chart. * Call your Primary Care doctor if you gain more than 2-3 pounds in 1-2 days. MEDICATIONS * Use this discharge instruction sheet for medication instructions. * Take your medications at the time your doctor ordered. * Do not skip a dose of your medicines. * If you miss a dose of medicine, take it as soon as possible, but DO NOT DOUBLE A DOSE. * Read your medicine information when you get home. * Know all of the side effects of your medicine. If in doubt, ask your pharmacist * Call your Primary Care doctor's office if you have any side effects. * Be sure all of your doctors know what medicine and herbs you take (including cold, flu, and herbal medicine). Take the following with you to your follow-up doctor appointments: * Weight Chart * Medication List * List of questions Do not drink excessive alcohol, beer or wine. Current Hospital Diet Patient's current hospital diet: Diabetes Type 2 Diet, Renal Diet Discharge Diet Recommended Diet: Low Sodium Diet (2gm Na), Diabetes Type 2 Diet Fluid Restriction: 2000 ml (8 cups) Pending Studies Studies pending at discharge: yes List of pending studies: REPEAT BLOOD WORK C/O PRIMARY CARE PHYSICIAN Laboratory Results Hemoglobin A1c Test 05/09/17 06:40 Range/Units Estimated Average Glucose 163 mg/dl Hemoglobin A1c 7.3 H 4.5-5.6 % Medical Emergencies . Who to Call and When: Call 911 or go to the Emergency Room if: * If at any time you feel your situation is an emergency * You have tightness or pain in your chest that does not go away with rest or Nitroglycerin * You are very short of breath even with rest . Non-Emergent Contact Non-Emergency issues call your: Primary Care Provider Call Non-Emergent contact if: you have a fever, you have any medication questions . . "Provider Documentation" section prepared by Dhruv Agee. . VTE Core Measure Inpt VTE Proph given/why not?: Unfractionated heparin SQ
== END 2017-05-10 17:46 | disposition home health service (06) | DRG 689 ==
LOC: C.EDB 11:30 → C.MED 15:16 → ENRESERV 15:32 → OBSVTOIN 05-09 09:25
PROVIDERS: ADMIT Hospitalist; ATTEND Internal Medicine
DX: N39.0 Urinary tract infection, site not specified (principal); I50.33 Acute on chronic diastolic (congestive) heart failure; N18.4 Chronic kidney disease, stage 4 (severe); B96.1 Klebsiella pneumoniae [K. pneumoniae] as the cause of diseases classified elsewhere; R93.8 Abnormal findings on diagnostic imaging of other specified body structures; E11.22 Type 2 diabetes mellitus with diabetic chronic kidney disease; K21.9 Gastro-esophageal reflux disease without esophagitis; Z51.81 Encounter for therapeutic drug level monitoring; Z79.899 Other long term (current) drug therapy; Z66 Do not resuscitate; Z91.81 History of falling; Z82.3 Family history of stroke

== ENCOUNTER 2017-07-11 20:10 | Emergency (ER) | payer OTHER ==
[~2017-07-11] VITALS: Ht 147.3 cm; Wt 73.4 kg
[~2017-07-11 20:10] MED LIST changes: -ASCO500T16 PO; -CARB0.5D28 OPB; -CHOL100010 PO; -CLC100 PO; +CPR500 PO; -CYAN500T PO; -FERR1TAB13 PO; +FURO20TA PO; +MCRK20 PO; -MULT-506 PO; -PANTPAK PO; -VNTHFA/IN INH
[2017-07-11 20:12] VITALS: TEMP 36.4
[2017-07-11 20:19] VITALS: O2SAT 100; Ht 147.3 cm; Wt 73.4 kg
--- NOTE | 2017-07-11 20:54 | EMERGENCY ROOM VISIT NOTE ---
History Report prepared by Blake: Jacklyn Paez Under the Supervision of: Dr. Riley Aguilar M.D. First contact with patient: 20:12 Chief Complaint: SHORTNESS OF BREATH Stated Complaint: SOB History of Present Illness The patient is an 86 year old female who presents to the Emergency Room with complaints of an episode of fall PROCESS OWNER. She presents to the ED by EMS. She fell while she was trying to get off the bed. She reports coughing and feeling SOB. She denies any head injury or abdominal pain. She lives with her best friend. Source of History: patient, EMS Onset: PROCESS OWNER Position: other (global) Quality: other (fall) Timing: other (episodic) Associated Symptoms: + cough, + SOB, No headache, No abdominal pain Review of Systems See HPI for pertinent positives & negatives. A total of 10 systems reviewed and were otherwise negative. Past Medical & Surgical Medical Problems: (1) Bilateral lower extremity edema (2) Chest pain, atypical (3) CKD (chronic kidney disease), stage IV (4) Diabetes mellitus type 2 (5) Dyslipidemia (6) Gastroesophageal reflux disease (7) Hypothyroidism (8) PAF (paroxysmal atrial fibrillation) (9) Parkinson's disease (10) Syncope (11) Urinary incontinence Surgical Problems: (1) History of appendectomy (2) History of cholecystectomy (3) History of mastectomy Family History FH: cancer MOTHER Stroke SISTER Social History Smoking Status: Former Smoker Alcohol Use: none Drug Use: none Marital Status: , in relationship Housing Status: lives with significant other Occupation Status: retired Current/Historical Medications Scheduled Furosemide (Lasix), 20 MG PO Q2D Pantoprazole Sodium (Protonix), 40 MG PO DAILY Potassium Ext Rel (Klor-Con), 20 MEQ PO Q2D Topiramate (Topamax ), 25 MG PO BID Allergies Coded Allergies: Garlic (Verified Allergy, Severe, "raw garlic" airway closes, 05/08/17) Shellfish (Verified Allergy, Severe, FISH = "HIVES" AND "CANT BREATH", ) REPORTS "SEAFOOD" ALLERGY Macrolides and Ketolides (Verified Allergy, Intermediate, ZITHROMAX-HIVES , 05/08/17) Amitriptyline (Verified Allergy, Unknown, _, 05/08/17) Aspirin (Verified Allergy, Unknown, UNKNOWN, 05/08/17) Azithromycin (Verified Allergy, Unknown, HIVES, 05/08/17) Cephalosporins (Verified Allergy, Unknown, UNKNOWN, 05/08/17) [id number] Ethyl Esters (Verified Allergy, Unknown, hives, 05/08/17) Penicillins (Verified Allergy, Unknown, UNKNOWN, 05/08/17) Red Dye (Verified Allergy, Unknown, Unknown rxn, 05/08/17) Tricyclic Antidepressants (Verified Allergy, Unknown, _, 05/08/17) White Fish (Verified Allergy, Unknown, UNKNOWN- "SEAFOOD", 05/08/17) REPORTS "SEAFOOD" ALLERGY NSAIDs (Verified Adverse Reaction, Severe, NO NSAIDS PER MARTEN WISE 08/27, 05/08/17) Metoclopramide (Verified Adverse Reaction, Intermediate, PARKINSON'S RIGIDITY AND LIP TREMOR, 05/08/17) Erythromycin (Verified Adverse Reaction, Unknown, HEADACHE,NAUSEA, 05/08/17 ) Physical Exam Vital Signs Date Time Temp Pulse Resp B/P (MAP) Pulse Ox O2 Delivery O2 Flow Rate FiO2 07/11/17 22:08 82 18 128/75 98 Room Air 07/11/17 20:44 99 Room Air 07/11/17 20:28 77 07/11/17 20:19 100 Room Air 07/11/17 20:19 100 Room Air 07/11/17 20:12 36.4 105 26 171/85 100 Room Air Physical Exam GENERAL: Patient is a healthy-appearing well-nourished female HEAD: Normocephalic atraumatic EYES: Ocular movements intact pupils equal and react to light OROPHARYNX mucous membranes are moist no exudates present no erythema or edema present NECK: Supple no nuchal rigidity CHEST: Good equal expansion LUNGS: Clear and equal to auscultation, hyperventilating. CARDIAC: Normal S1 and S2 ABDOMEN: Soft nontender no guarding BACK: No CVA tenderness EXTREMITIES: No pain upon palpation normal muscle strength in all groups no clubbing cyanosis or edema NEURO: Patient is following commands and answering questions appropriately. Alert and oriented x3 Cranial Nerves 2-12 grossly intact Medical Decision & Procedures ER Provider Diagnostic Interpretation: X-ray results as stated below per interpretation by me and the radiologist. Radiology results as stated below per my review and radiologist interpretation: CHEST ONE VIEW PORTABLE CLINICAL HISTORY: Shortness of breath COMPARISON STUDY: 05/08/2017 FINDINGS: The cardiac and mediastinal contours remain stable. There is calcification mitral valve annulus. There is mild interstitial prominence without evidence of overt failure. There is no focal pulmonary consolidation. There are no pleural effusions. There is a scoliosis.[ IMPRESSION: No active disease in the chest. Electronically signed by: Scott Mckay M.D. 07/11/2017 9:24 PM Dictated Date/Time: 07/11/2017 9:[address] HEAD WITHOUT CONTRAST (CT) CLINICAL HISTORY: Head pain status post head trauma COMPARISON STUDY: 08/11/2016 TECHNIQUE: Axial CT of the brain is performed from the vertex to the skull base. IV contrast was not administered for this examination. A dose lowering technique was utilized adhering to the principles of ALARA. CT DOSE: 537.48 mGy.cm FINDINGS: No intra or extra-axial mass lesions are visualized. There is no CT evidence of acute cortical infarction. There is no evidence of midline shift. There is no acute hemorrhage. No calvarial fractures are visualized. There are patchy white matter hypodensities likely on a small vessel basis. There is no evidence of pathologic ventricular dilatation. There is no evidence of acute sinusitis IMPRESSION: No acute intracranial findings Electronically signed by: Scott Mckay M.D. 07/11/2017 9:44 PM Dictated Date/Time: 07/11/2017 9:43 PM Laboratory Results 07/11/17 21:15 Red Blood Count 3.79, Mean Corpuscular Volume 82.3, Mean Corpuscular Hemoglobin 26.4, Mean Corpuscular Hemoglobin Concent 32.1, Mean Platelet Volume 11.7, Neutrophils (%) (Auto) 45.7, Lymphocytes (%) (Auto) 38.0, Monocytes (%) (Auto) 11.1, Eosinophils (%) (Auto) 3.1, Basophils (%) (Auto) 0.6, Neutrophils # (Auto ) 2.48, Lymphocytes # (Auto) 2.06, Monocytes # (Auto) 0.60, Eosinophils # (Auto ) 0.17, Basophils # (Auto) 0.03 07/11/17 21:15 Test 07/11/17 21:15 07/11/17 22:00 White Blood Count 5.42 K/uL (4.8-10.8) Red Blood Count 3.79 M/uL (4.2-5.4) Hemoglobin 10.0 g/dL (12.0-16.0) Hematocrit 31.2 % (37-47) Mean Corpuscular Volume 82.3 fL (80-100) Mean Corpuscular Hemoglobin 26.4 pg (25-34) Mean Corpuscular Hemoglobin Concent 32.1 g/dl (32-36) Platelet Count 253 K/uL (130-400) Mean Platelet Volume 11.7 fL (7.4-10.4) Neutrophils (%) (Auto) 45.7 % Lymphocytes (%) (Auto) 38.0 % Monocytes (%) (Auto) 11.1 % Eosinophils (%) (Auto) 3.1 % Basophils (%) (Auto) 0.6 % Neutrophils # (Auto) 2.48 K/uL (1.4-6.5) Lymphocytes # (Auto) 2.06 K/uL (1.2-3.4) Monocytes # (Auto) 0.60 K/uL (0.11-0.59) Eosinophils # (Auto) 0.17 K/uL (0-0.5) Basophils # (Auto) 0.03 K/uL (0-0.2) RDW Standard Deviation 57.6 fL (36.4-46.3) RDW Coefficient of Variation 19.2 % (11.5-14.5) Immature Granulocyte % (Auto) 1.5 % Immature Granulocyte # (Auto) 0.08 K/uL (0.00-0.02) Anion Gap 8.0 mmol/L (3-11) Est Creatinine Clear Calc Drug Dose 20.1 ml/min Estimated GFR () 30.5 Estimated GFR (Non- 26.3 BUN/Creatinine Ratio 20.9 (10-20) Calcium Level 8.8 mg/dl (8.5-10.1) Total Bilirubin 0.3 mg/dl (0.2-1) Aspartate Amino Transf (AST/SGOT) 9 U/L (15-37) Alanine Aminotransferase (ALT/SGPT) 15 U/L (12-78) Alkaline Phosphatase 100 U/L (45-117) Total Creatine Kinase 39 U/L (26-192) Creatine Kinase MB 1.0 ng/ml (0.5-3.6) Creatine Kinase MB Ratio 2.6 (0-3.0) Troponin I < 0.015 ng/ml (0-0.045) Total Protein 6.7 gm/dl (6.4-8.2) Albumin 3.2 gm/dl (3.4-5.0) Globulin 3.5 gm/dl (2.5-4.0) Albumin/Globulin Ratio 0.9 (0.9-2) Urine Color YELLOW Urine Appearance CLEAR (CLEAR) Urine pH 5.0 (4.5-7.5) Urine Specific [place] 1.021 (1.000-1.030) Urine Protein NEG (NEG) Urine Glucose (UA) NEG (NEG) Urine Ketones NEG (NEG) Urine Occult Blood NEG (NEG) Urine Nitrite NEG (NEG) Urine Bilirubin NEG (NEG) Urine Urobilinogen NEG (NEG) Urine Leukocyte Esterase NEG (NEG) Labs reviewed by ED physician. ECG Indication: SOB/dyspnea Rate (beats per minute): 83 Rhythm: normal sinus Findings: no acute ischemic change, no ectopy ED Course 2010: Past medical records reviewed. The patient was evaluated in room A4B. A complete history and physical examination was performed. 2220: Upon reexamination the patient is resting comfortably. I discussed results and treatment plan with the patient. She verbalizes agreement and understanding. The patient is ready for discharge. Medical Decision Differential diagnosis: Etiologies such as infections, reactive airway disease, pneumonia, pneumothorax , COPD, CHF, cardiac ischemia, pulmonary embolism, musculoskeletal, gastrointestinal, as well as others were entertained. This is an 86-year-old female who presents emergency department complaining of falling and hitting her head. Upon arrival to the emergency department the patient has no complaints. Chest x-ray does not show any evidence of pneumonia congestion and pneumothorax. The patient's CAT scan of her head does not show any evidence of acute intracranial process. The patient was watched for a total of 3 hours in the emergency department. I do feel she is well enough to be discharged home for follow-up with her primary care physician. Patient was in agreement with the treatment plan. Head Trauma GCS Score: 15 Medication Reconcilliation Current Medication List: was personally reviewed by me Blood Pressure Screening Patient's blood pressure: Normal blood pressure Blood pressure disposition: Did not require urgent referral Impression Primary Impression: Fall Additional Impression: Head injury Scribe Attestation The scribe's documentation has been prepared under my direction and personally reviewed by me in its entirety. I confirm that the note above accurately reflects all work, treatment, procedures, and medical decision making performed by me. Departure Information Dispostion Home / Self-Care Referrals Van Ott M.D. (PCP) Forms HOME CARE DOCUMENTATION FORM, IMPORTANT VISIT INFORMATION Patient Instructions ED Fall Dizziness Weakn Balance, ED Head Injury Closed, My [facility] Additional Instructions Follow up with Dr Ott You have been examined and treated today on an emergency basis only. This is not a substitute for, or an effort to provide, complete comprehensive medical care. It is impossible to recognize and treat all injuries or illnesses in a single emergency department visit. It is therefore important that you follow up closely with Dr Ott. Call as soon as possible for an appointment. Thank you for your time and consideration. I look forward to speaking with you again soon. Please don't hesitate to call us if you have any questions. Problem Qualifiers Primary Impression: Fall Encounter type: initial encounter Qualified Codes: W19.XXXA - Unspecified fall, initial encounter Additional Impression: Head injury Encounter type: initial encounter Qualified Codes: S09.90XA - Unspecified injury of head, initial encounter
[2017-07-11] MEDS ORDERED: FURO-85 PO (21:09)
[2017-07-11] MEDS ORDERED: POTA20TA16 PO (21:09)
--- NOTE | 2017-07-11 21:26 | DIAGNOSTIC IMAGING REPORT ---
CHEST ONE VIEW PORTABLE CLINICAL HISTORY: Shortness of breath COMPARISON STUDY: 05/08/2017 FINDINGS: The cardiac and mediastinal contours remain stable. There is calcification mitral valve annulus. There is mild interstitial prominence without evidence of overt failure. There is no focal pulmonary consolidation. There are no pleural effusions. There is a scoliosis.[ IMPRESSION: No active disease in the chest. Electronically signed by: Scott Mckay M.D. 07/11/2017 9:24 PM Dictated Date/Time: 07/11/2017 9:24 PM
[2017-07-11 21:37] LABS: BASO % 0.6 %; BASO ABS # 0.03 K/uL (0-0.2); COMPLETE YES; EOS % 3.1 %; HEMATOCRIT 31.2 % (37-47); IG% 1.5 %; LYMPH ABS # 2.06 K/uL (1.2-3.4); MEAN CELL VOLUME 82.3 fL (80-100); MEAN CORPUSCULAR HEMOGLOBIN 26.4 pg (25-34); MEAN CORPUSCULAR HGB CONC 32.1 g/dl (32-36); MEAN PLATELET VOLUME 11.7 fL (7.4-10.4); MONO % 11.1 %; NEUT % 45.7 %; PLATELET COUNT 253 K/uL (130-400); RED BLOOD COUNT 3.79 M/uL (4.2-5.4); WHITE BLOOD COUNT 5.42 K/uL (4.8-10.8)
--- NOTE | 2017-07-11 21:45 | DIAGNOSTIC IMAGING REPORT ---
CT HEAD WITHOUT CONTRAST (CT) CLINICAL HISTORY: Head pain status post head trauma COMPARISON STUDY: 08/11/2016 TECHNIQUE: Axial CT of the brain is performed from the vertex to the skull base. IV contrast was not administered for this examination. A dose lowering technique was utilized adhering to the principles of ALARA. CT DOSE: 537.48 mGy.cm FINDINGS: No intra or extra-axial mass lesions are visualized. There is no CT evidence of acute cortical infarction. There is no evidence of midline shift. There is no acute hemorrhage. No calvarial fractures are visualized. There are patchy white matter hypodensities likely on a small vessel basis. There is no evidence of pathologic ventricular dilatation. There is no evidence of acute sinusitis IMPRESSION: No acute intracranial findings Electronically signed by: Scott Mckay M.D. 07/11/2017 9:44 PM Dictated Date/Time: 07/11/2017 9:43 PM
[2017-07-11 21:55] LABS: ALT/SGPT 15 U/L (12-78); BLOOD UREA NITROGEN 36 mg/dl (7-18); BUN/CREATININE RATIO 20.9 (10-20); CALCIUM 8.8 mg/dl (8.5-10.1); CARBON DIOXIDE 22 mmol/L (21-32); CHLORIDE 114 mmol/L (98-107); CREATININE 1.74 mg/dl (0.60-1.20); GLUCOSE 153 mg/dl (70-99); POTASSIUM 4.1 mmol/L (3.5-5.1); SODIUM 144 mmol/L (136-145)
[2017-07-11 22:00] LABS: ALB/GLOB RATIO 0.9 (0.9-2); ALKALINE PHOSPHATASE 100 U/L (45-117); AST/SGOT 9 U/L (15-37); CKMB/CK RATIO 2.6 (0-3.0)
[2017-07-11 22:08] VITALS: BP 128/75; PULSE 82; O2SAT 98
[2017-07-11 22:20] LABS: URINE APPEARANCE CLEAR (CLEAR); URINE BILIRUBIN NEG (NEG); URINE COLOR YELLOW; URINE NITRITE NEG (NEG); URINE SPECIFIC GRAVITY 1.021 (1.000-1.030); UROBILINOGEN NEG (NEG)
[2017-07-11 22:38] LABS: MANUAL MICROSCOPIC REQUIRED? NO; REVIEW REQ? NO
[2017-07-11] MEDS ORDERED: PANTPAK PO (23:25)
== END 2017-07-11 22:00 | disposition home or self-care (01) ==
LOC: EDBD 20:10 → C.EDA 20:12
DX: S09.90XA Unspecified injury of head, initial encounter (principal); W19.XXXA Unspecified fall, initial encounter; Y92.013 Bedroom of single-family (private) house as the place of occurrence of the external cause; N18.4 Chronic kidney disease, stage 4 (severe); E11.9 Type 2 diabetes mellitus without complications; E78.5 Hyperlipidemia, unspecified; K21.9 Gastro-esophageal reflux disease without esophagitis; E03.9 Hypothyroidism, unspecified; G20 Parkinson's disease; I48.0 Paroxysmal atrial fibrillation; Z80.9 Family history of malignant neoplasm, unspecified; Z82.49 Family history of ischemic heart disease and other diseases of the circulatory system; Z87.891 Personal history of nicotine dependence; Z79.899 Other long term (current) drug therapy

== ENCOUNTER → 2017-07-29 | Outpatient (CLI) | payer OTHER ==
[~2017-07-29] MED LIST changes: -CPR500 PO; +FURO-85 PO; -FURO20TA PO; -MCRK20 PO; +PANTPAK PO; +POTA20TA16 PO
[2017-07-29 10:21] LABS: BASO % 0.4 %; BASO ABS # 0.03 K/uL (0-0.2); EOS % 1.9 %; HEMATOCRIT 27.8 % (37-47); IG% 0.7 %; LYMPH % 27.5 %; LYMPH ABS # 1.99 K/uL (1.2-3.4); MEAN CELL VOLUME 84.2 fL (80-100); MEAN CORPUSCULAR HEMOGLOBIN 26.1 pg (25-34); MEAN CORPUSCULAR HGB CONC 30.9 g/dl (32-36); MONO % 10.8 %; NEUT % 58.7 %; PLATELET COUNT 189 K/uL (130-400); WHITE BLOOD COUNT 7.24 K/uL (4.8-10.8)
[2017-07-29 10:48] LABS: ACANTHOCYTES 2+; ANISOCYTOSIS PRESENT; COMPLETE YES; HYPOCHROMIA PRESENT
[2017-07-29 10:49] LABS: ESTIMATED AVERAGE GLUCOSE 148 mg/dl; HA1C FLAG Normal (Normal)
[2017-07-29 10:52] LABS: ALT/SGPT 13 U/L (12-78); AST/SGOT 9 U/L (15-37); BLOOD UREA NITROGEN 33 mg/dl (7-18); BUN/CREATININE RATIO 18.5 (10-20); CALCIUM 8.9 mg/dl (8.5-10.1); CARBON DIOXIDE 23 mmol/L (21-32); CHLORIDE 109 mmol/L (98-107); CREATININE 1.79 mg/dl (0.60-1.20); GLUCOSE 183 mg/dl (70-99); POTASSIUM 3.9 mmol/L (3.5-5.1); SODIUM 144 mmol/L (136-145)
[2017-07-29 10:55] LABS: ALB/GLOB RATIO 0.9 (0.9-2); ALKALINE PHOSPHATASE 83 U/L (45-117)
== END ==
LOC: C.LABUPBEA 09:17
PROVIDERS: ATTEND Nurse Practitioner Family
DX: E11.22 Type 2 diabetes mellitus with diabetic chronic kidney disease (principal); N18.4 Chronic kidney disease, stage 4 (severe); Z78.9 Other specified health status

== ENCOUNTER → 2017-08-02 | Outpatient (CLI) | payer OTHER ==
[2017-08-02 08:57] LABS: HEMATOCRIT 28.3 % (37-47)
[2017-08-02 09:05] LABS: BLOOD UREA NITROGEN 37 mg/dl (7-18); BUN/CREATININE RATIO 23.5 (10-20); CALCIUM 8.8 mg/dl (8.5-10.1); CARBON DIOXIDE 21 mmol/L (21-32); CHLORIDE 112 mmol/L (98-107); CREATININE 1.55 mg/dl (0.60-1.20); GLUCOSE 192 mg/dl (70-99); SODIUM 146 mmol/L (136-145)
== END ==
LOC: C.LABUPBEA 08:36
PROVIDERS: ATTEND Nurse Practitioner Family
DX: N18.4 Chronic kidney disease, stage 4 (severe) (principal)

== ENCOUNTER → 2017-08-06 | Outpatient (CLI) | payer OTHER ==
[2017-08-06 09:59] LABS: HEMATOCRIT 28.6 % (37-47)
[2017-08-06 10:07] LABS: BLOOD UREA NITROGEN 38 mg/dl (7-18); BUN/CREATININE RATIO 22.4 (10-20); CALCIUM 8.8 mg/dl (8.5-10.1); CARBON DIOXIDE 23 mmol/L (21-32); CHLORIDE 111 mmol/L (98-107); CREATININE 1.72 mg/dl (0.60-1.20); GLUCOSE 197 mg/dl (70-99); POTASSIUM 3.9 mmol/L (3.5-5.1); SODIUM 143 mmol/L (136-145)
== END ==
LOC: C.LABUPBEA 09:02
PROVIDERS: ATTEND Nurse Practitioner Family
DX: I89.0 Lymphedema, not elsewhere classified (principal)

== ENCOUNTER → 2017-08-20 | Outpatient (CLI) | payer OTHER ==
[2017-08-20 08:57] LABS: HEMATOCRIT 33.7 % (37-47)
[2017-08-20 09:07] LABS: BLOOD UREA NITROGEN 32 mg/dl (7-18); CALCIUM 8.8 mg/dl (8.5-10.1); CARBON DIOXIDE 20 mmol/L (21-32); CHLORIDE 110 mmol/L (98-107); CREATININE 1.54 mg/dl (0.60-1.20); GLUCOSE 121 mg/dl (70-99); POTASSIUM 3.6 mmol/L (3.5-5.1); SODIUM 141 mmol/L (136-145)
== END ==
LOC: C.LABUPBEA 08:41
PROVIDERS: ATTEND Nurse Practitioner Family
DX: N18.4 Chronic kidney disease, stage 4 (severe) (principal); I89.0 Lymphedema, not elsewhere classified

== ENCOUNTER → 2017-08-24 | Outpatient (CLI) | payer OTHER ==
[2017-08-24 08:16] LABS: URINE APPEARANCE CLEAR (CLEAR); URINE BILIRUBIN NEG (NEG); URINE COLOR YELLOW; URINE NITRITE NEG (NEG); URINE SPECIFIC GRAVITY 1.019 (1.000-1.030); UROBILINOGEN NEG (NEG)
[2017-08-24 08:23] LABS: MANUAL MICROSCOPIC REQUIRED? YES; REVIEW REQ? NO
[2017-08-24 08:42] LABS: URINE BACTERIA 3+ (NEG)
== END ==
LOC: C.LABUPBEA 01:00
PROVIDERS: ATTEND Nurse Practitioner Family
DX: R41.0 Disorientation, unspecified (principal)

== ENCOUNTER → 2017-09-05 | Outpatient (CLI) | payer OTHER ==
[2017-09-05 09:36] LABS: URINE APPEARANCE CLEAR (CLEAR); URINE BILIRUBIN NEG (NEG); URINE COLOR YELLOW; URINE EPITHELIAL CELL AUTO >30 /lpf (0-5); URINE NITRITE NEG (NEG); URINE PH 6.5 (4.5-7.5); URINE SPECIFIC GRAVITY 1.013 (1.000-1.030); UROBILINOGEN NEG (NEG)
[2017-09-05 09:37] LABS: MANUAL MICROSCOPIC REQUIRED? NO; REVIEW REQ? YES
== END ==
LOC: C.LABUPBEA 08:41
PROVIDERS: ATTEND Nurse Practitioner Family
DX: R82.5 Elevated urine levels of drugs, medicaments and biological substances (principal)

== ENCOUNTER → 2017-09-20 | Outpatient (CLI) | payer OTHER ==
[~2017-09-20] MED LIST changes: +POTA-639 PO; -POTA20TA16 PO
[2017-09-20 08:50] LABS: HEMATOCRIT 32.3 % (37-47); HEMOGLOBIN 10.1 g/dL (12.0-16.0)
[2017-09-20 09:55] LABS: BLOOD UREA NITROGEN 27 mg/dl (7-18); CALCIUM 9.4 mg/dl (8.5-10.1); CARBON DIOXIDE 21 mmol/L (21-32); CREATININE 1.62 mg/dl (0.60-1.20); GLUCOSE 158 mg/dl (70-99); POTASSIUM 3.8 mmol/L (3.5-5.1); SODIUM 143 mmol/L (136-145)
== END ==
LOC: C.LABUPBEA 08:33
PROVIDERS: ATTEND Nurse Practitioner Family
DX: E11.22 Type 2 diabetes mellitus with diabetic chronic kidney disease (principal); N18.9 Chronic kidney disease, unspecified

== ENCOUNTER → 2017-10-11 | Outpatient (CLI) | payer OTHER ==
[~2017-10-11] MED LIST changes: -POTA-639 PO; +POTA20TA16 PO
== END ==
LOC: C.LABUPBEA 08:25
PROVIDERS: ATTEND Nurse Practitioner Family
DX: R30.0 Dysuria (principal)

== ENCOUNTER → 2017-10-15 | Outpatient (CLI) | payer OTHER ==
[2017-10-15 09:26] LABS: BLOOD UREA NITROGEN 22 mg/dl (7-18); CALCIUM 8.9 mg/dl (8.5-10.1); CARBON DIOXIDE 28 mmol/L (21-32); CREATININE 0.61 mg/dl (0.60-1.20); GLUCOSE 88 mg/dl (70-99); POTASSIUM 3.9 mmol/L (3.5-5.1); SODIUM 139 mmol/L (136-145)
[2017-10-15 09:27] LABS: PHOSPHORUS 3.3 mg/dl (2.5-4.9)
== END | disposition home or self-care (01) ==
LOC: C.LABUPBEA 08:39
PROVIDERS: ATTEND Nurse Practitioner Family
DX: I89.0 Lymphedema, not elsewhere classified (principal); N18.4 Chronic kidney disease, stage 4 (severe); E55.9 Vitamin D deficiency, unspecified; Z78.9 Other specified health status

== ENCOUNTER → 2017-10-16 | Outpatient (CLI) | payer OTHER ==
[2017-10-16 10:20] LABS: BLOOD UREA NITROGEN 27 mg/dl (7-18); CALCIUM 10.3 mg/dl (8.5-10.1); CARBON DIOXIDE 23 mmol/L (21-32); GLUCOSE 155 mg/dl (70-99); POTASSIUM 3.6 mmol/L (3.5-5.1); SODIUM 143 mmol/L (136-145)
== END | disposition home or self-care (01) ==
LOC: C.LABUPBEA 08:52
PROVIDERS: ATTEND Nurse Practitioner Family
DX: N18.4 Chronic kidney disease, stage 4 (severe) (principal)

== ENCOUNTER → 2017-11-14 | Outpatient (CLI) | payer OTHER | LOC: C.LABUPBEA 09:41 | PROVIDERS: ATTEND Nurse Practitioner Family | DX: E55.9 Vitamin D deficiency, unspecified (principal) ==

== ENCOUNTER → 2017-12-23 | Outpatient (CLI) | payer OTHER ==
[~2017-12-23] MED LIST changes: +POTA-639 PO; -POTA20TA16 PO
[2017-12-23 08:48] LABS: HEMATOCRIT 32.9 % (37-47); HEMOGLOBIN 10.5 g/dL (12.0-16.0); MEAN CELL VOLUME 81.4 fL (80-100); MEAN CORPUSCULAR HGB CONC 31.9 g/dl (32-36); PLATELET COUNT 212 K/uL (130-400); RED CELL DISTRIBUTION WIDTH CV 18.3 % (11.5-14.5); RED CELL DISTRIBUTION WIDTH SD 54.6 fL (36.4-46.3); WHITE BLOOD COUNT 6.76 K/uL (4.8-10.8)
[2017-12-23 09:39] LABS: HEMOGLOBIN A1C 7.8 % (4.5-5.6)
== END | disposition home or self-care (01) ==
LOC: C.LABUPBEA 08:36
PROVIDERS: ATTEND Nurse Practitioner Family
DX: E11.22 Type 2 diabetes mellitus with diabetic chronic kidney disease (principal); N18.4 Chronic kidney disease, stage 4 (severe); Z78.9 Other specified health status

== ENCOUNTER → 2018-04-10 | Outpatient (CLI) | payer OTHER ==
[2018-04-10 10:06] LABS: CREATININE 1.43 mg/dl (0.60-1.20)
[2018-04-10 10:19] LABS: HEMOGLOBIN A1C 6.5 % (4.5-5.6)
== END | disposition home or self-care (01) ==
LOC: C.LABUPBEA 09:28
PROVIDERS: ATTEND Nurse Practitioner Family
DX: E11.22 Type 2 diabetes mellitus with diabetic chronic kidney disease (principal); N18.4 Chronic kidney disease, stage 4 (severe)

== ENCOUNTER → 2018-04-16 | Outpatient (CLI) | payer OTHER | LOC: C.LABCC 08:04 | PROVIDERS: ATTEND Internal Medicine | DX: R55 Syncope and collapse (principal); R29.6 Repeated falls ==

== ENCOUNTER → 2018-04-17 | Outpatient (CLI) | payer OTHER ==
[2018-04-17 08:50] LABS: BASO % 0.6 %; BASO ABS # 0.03 K/uL (0-0.2); EOS % 3.1 %; EOS ABS # 0.15 K/uL (0-0.5); HEMATOCRIT 32.2 % (37-47); IG# 0.03 K/uL (0.00-0.02); LYMPH ABS # 1.89 K/uL (1.2-3.4); MEAN CELL VOLUME 80.9 fL (80-100); MEAN CORPUSCULAR HEMOGLOBIN 25.1 pg (25-34); MEAN CORPUSCULAR HGB CONC 31.1 g/dl (32-36); MONO % 8.5 %; MONO ABS # 0.41 K/uL (0.11-0.59); NEUT % 48.2 %; NEUT ABS # 2.33 K/uL (1.4-6.5); PLATELET COUNT 223 K/uL (130-400); RED CELL DISTRIBUTION WIDTH SD 53.2 fL (36.4-46.3); WHITE BLOOD COUNT 4.84 K/uL (4.8-10.8)
[2018-04-17 09:08] LABS: ALBUMIN 3.2 gm/dl (3.4-5.0); ALKALINE PHOSPHATASE 78 U/L (45-117); ALT/SGPT 13 U/L (12-78); AST/SGOT 11 U/L (15-37); BLOOD UREA NITROGEN 34 mg/dl (7-18); CALCIUM 8.8 mg/dl (8.5-10.1); CARBON DIOXIDE 25 mmol/L (21-32); CREATININE 1.43 mg/dl (0.60-1.20); GLUCOSE 110 mg/dl (70-99); POTASSIUM 3.7 mmol/L (3.5-5.1); SODIUM 143 mmol/L (136-145); TOTAL PROTEIN 6.1 gm/dl (6.4-8.2)
[2018-04-17 09:33] LABS: HEMOGLOBIN A1C 6.4 % (4.5-5.6)
== END ==
LOC: C.LABCC 08:15
PROVIDERS: ATTEND Internal Medicine
DX: R55 Syncope and collapse (principal); I49.9 Cardiac arrhythmia, unspecified; Z91.81 History of falling

== ENCOUNTER → 2018-04-21 | Outpatient (CLI) | payer OTHER | LOC: C.LABUPBEA 15:12 | PROVIDERS: ATTEND Nurse Practitioner Family | DX: N39.9 Disorder of urinary system, unspecified (principal) ==

== ENCOUNTER → 2018-04-22 | Outpatient (CLI) | payer OTHER | END | disposition home or self-care (01) | LOC: C.LABUPBEA 15:35 | PROVIDERS: ATTEND Nurse Practitioner Family | DX: N39.9 Disorder of urinary system, unspecified (principal) ==

== ENCOUNTER → 2018-04-25 | Outpatient (CLI) | payer OTHER | LOC: C.LABUPBEA 08:31 | PROVIDERS: ATTEND Nurse Practitioner Family | DX: R82.5 Elevated urine levels of drugs, medicaments and biological substances (principal); N81.4 Uterovaginal prolapse, unspecified ==

== ENCOUNTER 2020-04-20 20:04 | Inpatient (IN) ==
[2020-04-20] MEDS ORDERED: SODIUM CHLORIDE 0.9% 250 ML IV PRN ×2 (20:22→22:33)
[2020-04-20] MEDS ORDERED: PATIENT'S HEIGHT AND/OR WEIGHT NEEDED STA (20:26)
[2020-04-20] MEDS ORDERED: CEFEPIME 20 ML IV ONE (20:34)
[2020-04-20] MEDS ORDERED: CEFEPIME 2,000 MG in SYRINGE 7.5 ML IV STA (20:34)
--- NOTE | 2020-04-20 20:35 | Emergency Department Note ---
History of Present Illness General Chief complaint: Fever Stated complaint: fever Time Seen by Provider: 04/20/20 20:13 Source: patient and EMS Mode of arrival: ambulatory Limitations: altered mental status (Mildly confused) and other (Decreased hearing) History of Present Illness This patient is sent over the [facility] after having a fever. 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 She was noted to have a low hemoglobin of 7.1 low platelets of 20 and neutropenia yesterday. She spiked a temperature today and was given Tylenol she does not have a temperature now. She is had some increase in respiratory effort however denies being short of breath. There is been no COVID at the [facility] according to the staff there. She is had no fall or trauma. She did have his dark-colored stool today. She has no abdominal pain. She complains of bilateral knee pain. She does have multiple allergies in the computer. Home Medications Home Medications Medication Instructions Recorded Confirmed Type acetaminophen 650 mg PO TID 04/20/20 04/20/20 History cranberry 450 mg PO DAILY 04/20/20 04/20/20 History folic acid 1 mg PO DAILY 04/20/20 04/20/20 History lisinopril 20 mg PO DAILY 04/20/20 04/20/20 History lisinopril 20 mg PO DAILY 04/20/20 04/20/20 History menthol [Bengay Ultra 1 patch TOPICAL DAILY 04/20/20 04/20/20 History Strength(menthol)] Allergies Allergy/AdvReac Type Severity Reaction Status Date / Time garlic Allergy Severe "raw Verified 05/08/17 11:58 garlic" airway closes shellfish derived Allergy Severe FISH = Verified 05/08/17 11:58 "HIVES" AND "CANT BREATH" Macrolide Antibiotics Allergy Intermediate ZITHROMAX-H Verified 05/08/17 11:58 GUS amitriptyline Allergy Unknown _ Verified 05/08/17 11:58 aspirin Allergy Unknown UNKNOWN Verified 05/08/17 11:58 Cephalosporins Allergy Unknown UNKNOWN Verified 05/08/17 11:58 Fish Containing Products Allergy Unknown UNKNOWN- Verified 05/08/17 11:58 "SEAFOOD" omega-3 acid ethyl esters Allergy Unknown hives Verified 05/08/17 11:58 Penicillins Allergy Unknown UNKNOWN Verified 05/08/17 11:58 red dye Allergy Unknown Unknown rxn Verified 05/08/17 11:58 NSAIDS (Non-Steroidal AdvReac Severe NO NSAIDS Verified 05/08/17 11:58 Anti-Inflamma PER DARRIAN WISE 12/27/11 metoclopramide AdvReac Intermediate PARKINSON'S Verified 05/08/17 11:58 RIGIDITY AND LIP TREMOR erythromycin base AdvReac Unknown HEADACHE,NA Verified 05/08/17 11:58 USEA Tricyclic Antidepressants Allergy Unknown _ Uncoded 05/08/17 11:58 Past Med/Surg History Social History Smoking Status: Unknown if ever smoked Tobacco Cessation Education Requested by Patient: No Preferred Language: Kiswahili Communication Ability: Impaired Student Loan Counselor Required: No Beliefs That Will Affect Care: None Current Living Situation: Retirement Other Information That Helps Us Care for You: No Feels Safe at Home: Yes Safety Concerns: Feels Safe At This Time Review of Systems Unobtainable due to cognitive status Physical Exam Vital Signs Vital Signs - 24 hr 04/20/20 20:31 04/20/20 20:38 04/20/20 21:09 Temperature 37.3 C Temperature Source Oral Pulse Rate 106 H 133 H Pulse Rate from SpO2 Sensor Respiratory Rate 50 H 54 H Respiratory Effort / Characteristics Labored Nasal Flaring Short of Breath Respiratory Depth Shallow Respiratory Pattern Rapid/Shallow Tachypnea Blood Pressure 122/64 129/68 Blood Pressure Mean 83 100 Pulse Oximetry 97 97 95 Oxygen Delivery Method Room Air Room Air Sepsis Recent Fever Within 48 Hours Yes Sepsis New/Unexplained Change in Mental Status No Sepsis Action Taken by Nursing Physician Notified 04/20/20 21:30 04/20/20 21:40 04/20/20 21:50 Temperature Temperature Source Pulse Rate 100 H 102 H Pulse Rate from SpO2 Sensor 103 H 106 H Respiratory Rate 15 60 H 54 H Respiratory Effort / Characteristics Respiratory Depth Respiratory Pattern Blood Pressure 113/66 Blood Pressure Mean 80 Pulse Oximetry 96 97 96 Oxygen Delivery Method Sepsis Recent Fever Within 48 Hours Sepsis New/Unexplained Change in Mental Status Sepsis Action Taken by Nursing 04/20/20 22:00 04/20/20 22:01 04/20/20 22:02 Temperature Temperature Source Pulse Rate 128 H 124 H 117 H Pulse Rate from SpO2 Sensor 102 H 104 H 117 H Respiratory Rate 45 H 39 H 30 H Respiratory Effort / Characteristics Respiratory Depth Respiratory Pattern Blood Pressure 132/75 Blood Pressure Mean 93 Pulse Oximetry 95 95 97 Oxygen Delivery Method Sepsis Recent Fever Within 48 Hours Sepsis New/Unexplained Change in Mental Status Sepsis Action Taken by Nursing 04/20/20 22:11 04/20/20 22:20 04/20/20 22:30 Temperature Temperature Source Pulse Rate 104 H 120 H Pulse Rate from SpO2 Sensor 105 H 119 H Respiratory Rate 44 H 40 H 30 H Respiratory Effort / Characteristics Respiratory Depth Respiratory Pattern Blood Pressure 140/47 L Blood Pressure Mean 76 Pulse Oximetry 96 98 Oxygen Delivery Method Room Air Sepsis Recent Fever Within 48 Hours Sepsis New/Unexplained Change in Mental Status Sepsis Action Taken by Nursing 04/20/20 22:31 04/20/20 22:40 04/20/20 22:50 Temperature Temperature Source Pulse Rate 115 H 101 H 117 H Pulse Rate from SpO2 Sensor 115 H 100 H 116 H Respiratory Rate 36 H 32 H 24 Respiratory Effort / Characteristics Respiratory Depth Respiratory Pattern Blood Pressure Blood Pressure Mean Pulse Oximetry 97 96 96 Oxygen Delivery Method Sepsis Recent Fever Within 48 Hours Sepsis New/Unexplained Change in Mental Status Sepsis Action Taken by Nursing General: Well developed well nourished older female who appears in no acute distress with the exception of mild increased work of breathing but Normal speech HEENT: Normal cephalic atraumatic. Pupils are equal round and reactive to light. Extraocular movements are intact. Oropharynx is pink with moist mucous membranes. No swelling of the mouth lips or tongue. Neck: Supple with a midline trachea. No meningeal signs or stiffness, no JVD or bruits. No Stridor. Chest: Clear to auscultation bilaterally. No wheezes or rhonchi. No increased work of breathing. Heart: Tachycardic but regular rate and rhythm without murmurs or gallops. Abdomen: Soft nontender, nondistended without rebound guarding or rigidity. Extremities: No cyanosis clubbing or edema. No calf tenderness or assymetry Spine/Back. Non tender to palpation. No CVA tenderness Skin: Good turgor without rashes. Neurologic exam: Cranial nerves two through 12 are intact. Motor and sensation are intact and symmetrical throughout. Course Administered Medications Discontinued Medications Filgrastim (Neupogen) 480 mcg SC ONE ONE Stop: 04/20/20 22:54 Last Admin: 04/21/20 00:06 Dose: 480 mcg Documented by: [id number] Cefepime HCl (Maxipime) 20 mls @ 5 mls/min IV NOW ONE Stop: 04/20/20 20:37 Last Admin: 04/20/20 20:43 Dose: 5 mls/min Documented by: [id number] Lorazepam (Ativan) 0.5 mg in 1 mls @ 1 mls/min IV NOW STA Stop: 04/20/20 21:09 Last Admin: 04/20/20 21:25 Dose: 1 mls/min Documented by: [id number] Lorazepam (Ativan) 1 mg in 2 mls @ 2 mls/min IV NOW STA Stop: 04/20/20 22:37 Last Admin: 04/20/20 22:39 Dose: 2 mls/min Documented by: [id number] Miscellaneous (Patient's Height And/Or Weight Needed) 1 ea N/A NOW STA Stop: 04/20/20 20:27 Last Admin: 04/20/20 20:47 Dose: Not Given Documented by: [id number] Critical Care Time Critical Care Time: Yes Total Critical Care Time: 45 Due to the patient's neutropenic fever/sepsis/GI bleed/anemia/thrombocytopenia, she needed IV antibiotics, IV transfusion and frequent reassessment, I have personally spent greater than 45 minutes of critical care time in the direct management of this patient. This includes bedside care, interpretation of diagnostic studies, and testing, discussion with consultants, patient, and family members, and other required patient management activities. This 45 minutes is in excess of all separately billable procedures. Medical Decision Making Differential Diagnosis Sepsis, neutropenia, anemia, thrombocytopenia, leukemia complication, UTI, pneumonia, cardiac disease, COVID Medical Records Attestation: I reviewed the patient's medical records. Home Medications Current Medication List: was personally reviewed by me Laboratory Data Attestation: I reviewed the patient's lab results. Result diagrams: 04/20/20 20:33 04/20/20 20:33 Lab Results 04/20/20 04/20/20 04/20/20 Range/Units 20:33 20:33 20:33 WBC 1.14 L (4.8-10.8) K/uL RBC 2.24 L (4.2-5.4) M/uL Hgb 5.7 L* (12.0-16.0) g/dL Hct 17.7 L* (37-47) % MCV 79.0 L (80-100) fL MCH 25.4 (25-34) pg MCHC 32.2 (32-36) g/dL RDW Std Deviation 58.2 H (36.4-46.3) fL RDW Coeff of Jacque 20.4 H (11.5-14.5) % Plt Count 18 L* (130-400) K/uL Absolute Nucleated RBC 0.28 H (0-0) K/uL Nucleated RBC % (auto) 24.8 % Neutrophils % (Manual) 22.7 % Lymphocytes % (Manual) 56.4 % Monocytes % (Manual) 5.5 % Eosinophils % (Manual) 1.8 % Metamyelocytes % (Man) 5.5 % Myelocytes % (Man) 3.6 % Promyelocytes % (Man) 0.9 % Blast Cells % (Manual) 3.6 % Neutrophils # (Manual) 0.26 L (1.4-6.5) K/uL Total Absolute Neuts 0.26 L* (1.4-6.5) K/uL Lymphocytes # (Manual) 0.64 L (1.2-3.4) K/uL Total Abs Lymphocytes 0.64 L (1.2-3.4) K/uL Monocytes # (Manual) 0.06 L (0.11-0.59) K/uL Eosinophils # (Manual) 0.02 (0-0.5) K/uL Metamyelocytes # (Man) 0.06 H (0-0) K/uL Myelocytes # (Manual) 0.04 H (0-0) K/uL Promyelocytes # (Man) 0.01 H (0-0) K/uL Blast Cells # (Man) 0.04 H (0-0) K/uL Giant Platelets 3+ Hypochromasia Present Poikilocytosis Present Anisocytosis Present PT 13.0 H (9.0-12.0) Seconds INR 1.2 H (0.9-1.1) APTT 31.7 H (21.0-31.0) Seconds PTT Ratio 1.1 Sodium 140 (136-145) mmol/L Potassium 4.0 (3.5-5.1) mmol/L Chloride 113 H (98-107) mmol/L Carbon Dioxide 18 L (21-32) mmol/L Anion Gap 10.0 (3-11) BUN 46 H (7-18) mg/dl Creatinine 2.01 H (0.6-1.2) mg/dl Est Cr Clr Drug Dosing 16.7 ml/min Est GFR ( Amer) 25.0 Est GFR (Non-Af Amer) 21.6 BUN/Creatinine Ratio 23.0 H (10-20) Glucose 211 H (70-99) mg/dl Lactate (0.4-2.0) mmol/L Calcium 8.6 (8.5-10.1) mg/dl Magnesium 1.8 (1.8-2.4) mg/dl Total Bilirubin 0.6 (0.2-1) mg/dl AST 59 H (15-37) U/L ALT 12 (12-78) U/L Alkaline Phosphatase 90 (45-117) U/L Troponin I 0.048 H* (0-0.045) ng/ml Total Protein 6.9 (6.4-8.2) gm/dl Albumin 3.1 L (3.4-5.0) gm/dl Globulin 3.7 (2.5-4.0) gm/dl Albumin/Globulin Ratio 0.8 L (0.9-2) Procalcitonin (0-0.5) ng/ml Urine Color Urine Appearance (Clear) Urine pH (4.5-7.5) Ur Specific [place] (1.000-1.030) Urine Protein (Negative) Urine Glucose (UA) (Negative) Urine Ketones (Negative) Urine Blood (Negative) Urine Nitrite (Negative) Urine Bilirubin (Negative) Urine Urobilinogen (Negative) Ur Leukocyte Esterase (Negative) Urine WBC (Auto) (0-5) /hpf Urine RBC (Auto) (0-4) /hpf U Hyaline Cast (Auto) U Epithel Cells (Auto) (0-5) /lpf Urine Bacteria (Auto) (Negative) Granular Casts (0) /lpf Urine Yeast Blood Type Antibody Screen Crossmatch 04/20/20 04/20/20 04/20/20 Range/Units 20:33 20:33 20:40 WBC (4.8-10.8) K/uL RBC (4.2-5.4) M/uL Hgb (12.0-16.0) g/dL Hct (37-47) % MCV (80-100) fL MCH (25-34) pg MCHC (32-36) g/dL RDW Std Deviation (36.4-46.3) fL RDW Coeff of Jacque (11.5-14.5) % Plt Count (130-400) K/uL Absolute Nucleated RBC (0-0) K/uL Nucleated RBC % (auto) % Neutrophils % (Manual) % Lymphocytes % (Manual) % Monocytes % (Manual) % Eosinophils % (Manual) % Metamyelocytes % (Man) % Myelocytes % (Man) % Promyelocytes % (Man) % Blast Cells % (Manual) % Neutrophils # (Manual) (1.4-6.5) K/uL Total Absolute Neuts (1.4-6.5) K/uL Lymphocytes # (Manual) (1.2-3.4) K/uL Total Abs Lymphocytes (1.2-3.4) K/uL Monocytes # (Manual) (0.11-0.59) K/uL Eosinophils # (Manual) (0-0.5) K/uL Metamyelocytes # (Man) (0-0) K/uL Myelocytes # (Manual) (0-0) K/uL Promyelocytes # (Man) (0-0) K/uL Blast Cells # (Man) (0-0) K/uL Giant Platelets Hypochromasia Poikilocytosis Anisocytosis PT (9.0-12.0) Seconds INR (0.9-1.1) APTT (21.0-31.0) Seconds PTT Ratio Sodium (136-145) mmol/L Potassium (3.5-5.1) mmol/L Chloride (98-107) mmol/L Carbon Dioxide (21-32) mmol/L Anion Gap (3-11) BUN (7-18) mg/dl Creatinine (0.6-1.2) mg/dl Est Cr Clr Drug Dosing ml/min Est GFR ( Amer) Est GFR (Non-Af Amer) BUN/Creatinine Ratio (10-20) Glucose (70-99) mg/dl Lactate 1.3 (0.4-2.0) mmol/L Calcium (8.5-10.1) mg/dl Magnesium (1.8-2.4) mg/dl Total Bilirubin (0.2-1) mg/dl AST (15-37) U/L ALT (12-78) U/L Alkaline Phosphatase (45-117) U/L Troponin I (0-0.045) ng/ml Total Protein (6.4-8.2) gm/dl Albumin (3.4-5.0) gm/dl Globulin (2.5-4.0) gm/dl Albumin/Globulin Ratio (0.9-2) Procalcitonin 0.58 H (0-0.5) ng/ml Urine Color Urine Appearance (Clear) Urine pH (4.5-7.5) Ur Specific [place] (1.000-1.030) Urine Protein (Negative) Urine Glucose (UA) (Negative) Urine Ketones (Negative) Urine Blood (Negative) Urine Nitrite (Negative) Urine Bilirubin (Negative) Urine Urobilinogen (Negative) Ur Leukocyte Esterase (Negative) Urine WBC (Auto) (0-5) /hpf Urine RBC (Auto) (0-4) /hpf U Hyaline Cast (Auto) U Epithel Cells (Auto) (0-5) /lpf Urine Bacteria (Auto) (Negative) Granular Casts (0) /lpf Urine Yeast Blood Type A Positive Antibody Screen NEGATIVE Crossmatch See Detail 04/20/20 Range/Units 21:29 WBC (4.8-10.8) K/uL RBC (4.2-5.4) M/uL Hgb (12.0-16.0) g/dL Hct (37-47) % MCV (80-100) fL MCH (25-34) pg MCHC (32-36) g/dL RDW Std Deviation (36.4-46.3) fL RDW Coeff of Jacque (11.5-14.5) % Plt Count (130-400) K/uL Absolute Nucleated RBC (0-0) K/uL Nucleated RBC % (auto) % Neutrophils % (Manual) % Lymphocytes % (Manual) % Monocytes % (Manual) % Eosinophils % (Manual) % Metamyelocytes % (Man) % Myelocytes % (Man) % Promyelocytes % (Man) % Blast Cells % (Manual) % Neutrophils # (Manual) (1.4-6.5) K/uL Total Absolute Neuts (1.4-6.5) K/uL Lymphocytes # (Manual) (1.2-3.4) K/uL Total Abs Lymphocytes (1.2-3.4) K/uL Monocytes # (Manual) (0.11-0.59) K/uL Eosinophils # (Manual) (0-0.5) K/uL Metamyelocytes # (Man) (0-0) K/uL Myelocytes # (Manual) (0-0) K/uL Promyelocytes # (Man) (0-0) K/uL Blast Cells # (Man) (0-0) K/uL Giant Platelets Hypochromasia Poikilocytosis Anisocytosis PT (9.0-12.0) Seconds INR (0.9-1.1) APTT (21.0-31.0) Seconds PTT Ratio Sodium (136-145) mmol/L Potassium (3.5-5.1) mmol/L Chloride (98-107) mmol/L Carbon Dioxide (21-32) mmol/L Anion Gap (3-11) BUN (7-18) mg/dl Creatinine (0.6-1.2) mg/dl Est Cr Clr Drug Dosing ml/min Est GFR ( Amer) Est GFR (Non-Af Amer) BUN/Creatinine Ratio (10-20) Glucose (70-99) mg/dl Lactate (0.4-2.0) mmol/L Calcium (8.5-10.1) mg/dl Magnesium (1.8-2.4) mg/dl Total Bilirubin (0.2-1) mg/dl AST (15-37) U/L ALT (12-78) U/L Alkaline Phosphatase (45-117) U/L Troponin I (0-0.045) ng/ml Total Protein (6.4-8.2) gm/dl Albumin (3.4-5.0) gm/dl Globulin (2.5-4.0) gm/dl Albumin/Globulin Ratio (0.9-2) Procalcitonin (0-0.5) ng/ml Urine Color Yellow Urine Appearance Turbid A (Clear) Urine pH 5.0 (4.5-7.5) Ur Specific [place] 1.020 (1.000-1.030) Urine Protein 3+ H (Negative) Urine Glucose (UA) Negative (Negative) Urine Ketones Trace H (Negative) Urine Blood 3+ H (Negative) Urine Nitrite Negative (Negative) Urine Bilirubin Negative (Negative) Urine Urobilinogen Negative (Negative) Ur Leukocyte Esterase 2+ H (Negative) Urine WBC (Auto) >30 H (0-5) /hpf Urine RBC (Auto) 5-10 H (0-4) /hpf U Hyaline Cast (Auto) Not Reportable U Epithel Cells (Auto) >30 H (0-5) /lpf Urine Bacteria (Auto) 4+ H (Negative) Granular Casts 1-5 H (0) /lpf Urine Yeast Not Reportable Blood Type Antibody Screen Crossmatch Imaging Data Attestation: I personally reviewed and interpreted this imaging study as follows: My Impression: Chest x-ray: No infiltrate or pneumothorax. There may be some mild congestive changes ECG Data Attestation: I personally reviewed and interpreted this ECG as follows: Indication: + SOB/dyspnea Rate (beats per minute): 106 Rhythm: + sinus tachycardia ECG Intervals/blocks: + Left bundle branch block, + Normal QRS, + Short AR and + Normal QT ECG Muse: + Normal ECG ST segments: + Normal ST segments Comparison ECG Date: from (07/11/17) Change: the following changes noted (Rate has increased, left bundle branch block is present) Blood Pressure Blood Pressure Findings: Elevated blood pressure Blood Pressure Disposition: did not require urgent referral MDM Narrative This patient comes in as described above. She does have leukemia and was noted to be pancytopenic yesterday. She also may have had some dark stools today. She appears mildly tachypneic but denies any complaints. She is somewhat hard of hearing. I have reviewed the records this sent over as we do not have much here to go on. She does have a pulse with limited interventions which would exclude intubation. She apparently does not have a port. IV access was established by the ambulance I ordered a second IV as well as her to be typed and crossed. Blood work was rechecked here. We did review her previous medical allergies. She apparently is a cephalosporin allergy however has had's ceftriaxone before. She does need a broad-spectrum antibiotic and I discussed this with her ED pharmacist and we opted to go with cefepime 2 g IV. EKG and chest x-ray was obtained multiple blood testing was obtained urinalysis and culture was obtained. She was reassessed frequently. Her EKG shows sinus tachycardia. Chest x-ray does not show any focal infiltrate although she may be slightly wet. Her hemoglobin is low at 5.1 as are platelets. She was found to be neutropenic. She did tolerate the cefepime in the emergency department. She was somewhat agitated and had to get Ativan 0.5 mg IV as she was pulling out her IVs. We had to replace them. She has been typed and crossed as she will need blood transfusions in the hospital as well. She was unable to consent for these and Dr. Cabrera and I did a two-physician consent as the the benefits clearly outweigh the risk. Additionally she has been transfused multiple times in the past and is actually scheduled for transfusion tomorrow. Dr. Cabrera will be admitted here for further inpatient treatment and evaluation. Continuous cardiac monitoring: Due to the patient's sepsis and GI bleed she was placed on a continuous panel monitor. An order was placed in the EMR. She was noted to have a heart rate of 105 with normal sinus rhythm and a bundle branch pattern. Impression & Plan Sepsis, Fever and neutropenia, Anemia, Thrombocytopenia, Agitation, GI bleed Discharge Plan Visit Data *Final* Discharge Date/Time: 04/20/20 23:21 Chief Complaint: Fever Stated Complaint: fever ED Provider: Suraj Paige Discharge Problem: Sepsis, Fever and neutropenia, Anemia, Thrombocytopenia, Agitation, GI bleed Patient Disposition: Admitted As Inpatient Discharge Instructions Interventions: ED Discharge Assessment Last Done: 04/20/20 23:21 Discharge Problem: Sepsis Qualifiers: Sepsis type: sepsis due to unspecified organism Sepsis acute organ dysfunction status: unspecified Qualified Code(s): A41.9 - Sepsis, unspecified organism Anemia Qualifiers: Anemia type: bone marrow failure Bone marrow failure anemia type: pancytopenia, other drug-induced Qualified Code(s): D61.811 - Other drug-induced pancytopenia GI bleed Qualifiers: GI bleed type/associated pathology: melena Qualified Code(s): K92.1 - Melena
[2020-04-20 20:54] LABS: INR 1.2 (0.9-1.1); Partial Thromboplastin Ratio 1.1; Partial Thromboplastin Time 31.7 Seconds (21.0-31.0)
[2020-04-20 21:02] LABS: Albumin Level 3.1 gm/dl (3.4-5.0); Calcium 8.6 mg/dl (8.5-10.1); Creatinine Clr Calc Pharmacy 16.7 ml/min; Est GFR (Non-African American) 21.6; Magnesium 1.8 mg/dl (1.8-2.4)
[2020-04-20] MEDS ORDERED: LORazepam 0.5 MG/1 ML VIAL IV STA (21:08)
[2020-04-20 21:09] LABS: Albumin Globulin Ratio 0.8 (0.9-2); Bilirubin,Total 0.6 mg/dl (0.2-1); Globulin 3.7 gm/dl (2.5-4.0); Total Protein 6.9 gm/dl (6.4-8.2); Troponin I 0.048 ng/ml (0-0.045)
[2020-04-20 21:14] LABS: Hematocrit (blood only) 17.7 % (37-47); Hemoglobin 5.7 g/dL (12.0-16.0); Mean Corpuscular Hemoglobin 25.4 pg (25-34); Platelet Count 18 K/uL (130-400); RDW Coefficient of Variation 20.4 % (11.5-14.5); RDW Standard Deviation 58.2 fL (36.4-46.3); Red Blood Count 2.24 M/uL (4.2-5.4); White Blood Count 1.14 K/uL (4.8-10.8)
[2020-04-20 21:31] LABS: Mean Corpuscular Hgb Conc 32.2 g/dL (32-36); Nucleated RBC # (auto) 0.28 K/uL (0-0); Nucleated RBC % (auto) 24.8 %
[2020-04-20 21:49] LABS: Appearance Urine Turbid (Clear); Bacteria Urine Automated 4+ (Negative); Bilirubin Urine Negative (Negative); Blood Urine 3+ (Negative); Color Urine Yellow; Epithelial Cell Urine Auto >30 /lpf (0-5); Glucose Urine UA Negative (Negative); Ketones Urine Trace (Negative); Leukocyte Esterase Urine 2+ (Negative); Nitrite Urine Negative (Negative); Protein Urine 3+ (Negative); Urobilinogen Urine Negative (Negative); WBC Urine Automated >30 /hpf (0-5)
[2020-04-20 22:00] LABS: Anisocytosis Present; Giant Platelets 3+; Hypochromasia Present; Poikilocytosis Present
[2020-04-20 22:05] LABS: ALC (manual) 0.64 K/uL (1.2-3.4); ANC (manual) 0.26 K/uL (1.4-6.5); Blast # (manual) 0.04 K/uL (0-0); Blast Cells % (manual) 3.6 %; Eosinophils # (manual) 0.02 K/uL (0-0.5); Eosinophils % (manual) 1.8 %; Lymphocytes # (manual) 0.64 K/uL (1.2-3.4); Lymphocytes % (manual) 56.4 %; Metamyelocytes # (manual) 0.06 K/uL (0-0); Metamyelocytes % (manual) 5.5 %; Monocytes # (manual) 0.06 K/uL (0.11-0.59); Monocytes % (manual) 5.5 %; Myelocytes # (manual) 0.04 K/uL (0-0); Myelocytes % (manual) 3.6 %; Neutrophils # (manual) 0.26 K/uL (1.4-6.5); Neutrophils % (manual) 22.7 %; Promyelocytes # (manual) 0.01 K/uL (0-0); Promyelocytes % (manual) 0.9 %
[2020-04-20] MEDS ORDERED: LORazepam 1 MG/2 ML VIAL IV STA (22:36)
[2020-04-20] MEDS ORDERED: FILGRASTIM 480 MCG/1.6 ML VIAL SC ONE (22:53)
[2020-04-20] MEDS ORDERED: GLUCOSE 10 TABS/TUBE PO PRN (23:37)
[2020-04-20] MEDS ORDERED: ALUMINUM/MAGNESIUM SUSP 30 ML UDC PO PRN (23:37)
[2020-04-20] MEDS ORDERED: ACETAMINOPHEN 325 MG TAB PO PRN (23:37)
[2020-04-20] MEDS ORDERED: GLUCAGON FOR INJ 1 MG VIAL SQ PRN (23:37)
[2020-04-20] MEDS ORDERED: DEXTROSE 50% 50 ML SYRINGE IV PRN (23:37)
[2020-04-20] MEDS ORDERED: ONDANSETRON INJ 2 MG/ML 2 ML VIAL IV PRN (23:37)
[2020-04-20] MEDS ORDERED: GLUCOSE 40% GEL 15 GM TUBE PO PRN (23:37)
[2020-04-20] MEDS ORDERED: MAGNESIUM HYDROXIDE SUSP 30 ML UDC PO PRN (23:37)
[2020-04-20] MEDS ORDERED: CARBOHYDRATES FOR HYPOGLYCEMIA PO PRN (23:37)
[2020-04-21] MEDS ORDERED: LORazepam 1 MG/2 ML VIAL IV PRN (00:35)
--- NOTE | 2020-04-21 05:00 | History & Physical Report ---
Date of Service April 21, 2020 The patient was seen and examined on April 20, 2020 Assessment & Plan (1) Fever and neutropenia: Neutropenia and fever/sepsis due to UTI- Follow urine culture and sensitivity. Continue cefepime IV begun in the ED. NSS at 60 mils per hour Present on Admission?: Yes (2) Sepsis: See above Present on Admission?: Yes (3) Anemia: Hemoglobin 5.7 upon admission. Transfuse 2 units PRBCs, Recheck laboratories in a.m. Present on Admission?: Yes (4) Thrombocytopenia: Platelets 18, with no overt bleeding at this time. Recheck in a.m., if lower, will transfuse at that time, after PRBCs are transfused Present on Admission?: Yes (5) Agitation: Given lorazepam with appropriate control of agitation Present on Admission?: Yes (6) CKD (chronic kidney disease), stage IV: Creatinine 2.01 upon admission, with range 1.25-1.83. Hold lisinopril Repeat laboratories in a.m. Present on Admission?: Yes (7) PAF (paroxysmal atrial fibrillation): History of, but no medications of treatment Present on Admission?: Yes (8) Elevated troponin I level: Troponin 0 0.048 upon admission. Likely type II AR, supply demand mismatch, associated with CKD. Follow on telemetry, with serial troponins. Present on Admission?: Yes Admission and Anticipated Discharge Date Admission Date: April 20, 2020 History of Present Illness Chief Complaint: The patient is an 89-year-old female referred from [facility] due to a fever, while patient is undergoing treatment for leukemia, and was found to have pancytopenia yesterday. Primary Care Provider: [facility] The patient is an 89-year-old female resident of [facility], with a past medical history including sepsis, GI bleed, paroxysmal atrial fibrillation, CKD, bilateral lower extremity edema, atypical chest pain, syncope, urinary incontinence and pancytopenia. She presented with the above symptoms as noted. Upon arrival to the ED, the patient was quite agitated, and required Ativan IV for sedation. Of note, the patient had reportedly been scheduled for a transfusion tomorrow, 04/22. Orders were written for transfusion and 2 units PRBCs, due to medical necessity, and countersigned by Drs. Paige and Korey. Allergies Allergy/AdvReac Type Severity Reaction Status Date / Time garlic Allergy Severe "raw Verified 05/08/17 11:58 garlic" airway closes shellfish derived Allergy Severe FISH = Verified 05/08/17 11:58 "HIVES" AND "CANT BREATH" Macrolide Antibiotics Allergy Intermediate ZITHROMAX-H Verified 05/08/17 11:58 GUS amitriptyline Allergy Unknown _ Verified 05/08/17 11:58 aspirin Allergy Unknown UNKNOWN Verified 05/08/17 11:58 Cephalosporins Allergy Unknown UNKNOWN Verified 05/08/17 11:58 Fish Containing Products Allergy Unknown UNKNOWN- Verified 05/08/17 11:58 "SEAFOOD" omega-3 acid ethyl esters Allergy Unknown hives Verified 05/08/17 11:58 Penicillins Allergy Unknown UNKNOWN Verified 05/08/17 11:58 red dye Allergy Unknown Unknown rxn Verified 05/08/17 11:58 NSAIDS (Non-Steroidal AdvReac Severe NO NSAIDS Verified 05/08/17 11:58 Anti-Inflamma PER DARRIAN WISE 12/27/11 metoclopramide AdvReac Intermediate PARKINSON'S Verified 05/08/17 11:58 RIGIDITY AND LIP TREMOR erythromycin base AdvReac Unknown HEADACHE,NA Verified 05/08/17 11:58 USEA Tricyclic Antidepressants Allergy Unknown _ Uncoded 05/08/17 11:58 Home Medications Home Medications Medication Instructions Recorded Confirmed Type acetaminophen 650 mg PO TID 04/20/20 04/20/20 History cranberry 450 mg PO DAILY 04/20/20 04/20/20 History folic acid 1 mg PO DAILY 04/20/20 04/20/20 History lisinopril 20 mg PO DAILY 04/20/20 04/20/20 History lisinopril 20 mg PO DAILY 04/20/20 04/20/20 History menthol [Bengay Ultra 1 patch TOPICAL DAILY 04/20/20 04/20/20 History Strength(menthol)] Past Med/Surg History Social History Smoking Status: Unknown if ever smoked Tobacco Cessation Education Requested by Patient: No Preferred Language: [place] Citizen Communication Ability: Impaired Thread Winder Required: No Beliefs That Will Affect Care: None Current Living Situation: Correction Other Information That Helps Us Care for You: No Feels Safe at Home: Yes Safety Concerns: Feels Safe At This Time Review of Systems Review of Systems: Unobtainable due to cognitive status Physical Exam Physical Exam: The patient is agitated, normocephalic and atraumatic, lying in bed and in no acute distress. HEENT--PERRL, EOMI, mucous membranes and oropharynx dry. Neck--supple. No JVD. No bruits. Thyroid normal, trachea midline, no adenopathy. Heart--normal S1 and S2. No murmurs, rubs or gallops. Lungs--clear bilaterally, no respiratory distress, no accessory muscle use. Abdomen--normal bowel sounds and soft. Nontender. Nondistended. Extremities--no cyanosis or clubbing. No edema. There are good distal pulses b/l. Dermatologic--normal skin turgor, normal color, no abnormal lymph nodes, no rash. Neurologic--cranial nerves II through XII grossly intact. Rheumatologic--normal range of motion. Psychiatric--agitated. Results & Data Results & Data ([facility]) Vital Signs (Past 12 Hours) Vital Signs Temp Pulse Pulse Resp BP Pulse Ox 04/21/20 04:30 98.2 F 98 H 20 154/73 H 100 04/21/20 03:33 99.5 F 86 20 124/68 99 04/21/20 03:03 97.5 F L 92 H 18 132/68 97 04/21/20 02:48 98.2 F 86 18 137/72 96 04/21/20 02:30 98.2 F 91 H 20 149/61 H 97 04/21/20 01:53 98.8 F 92 H 20 145/77 H 96 04/21/20 01:10 99.5 F 112 H 22 173/85 H 95 04/21/20 00:10 99.5 F 110 H 20 164/84 H 95 04/20/20 23:59 114 H 04/20/20 23:48 98.1 F 109 H 20 96 04/20/20 23:40 98.1 F 109 H 20 119/58 L 96 04/20/20 23:25 99.0 F 103 H 35 H 120/55 L 96 04/20/20 23:10 106 H 39 H 95 04/20/20 23:06 99.3 F 108 H 37 H 124/58 L 97 04/20/20 23:01 107 H 34 H 96 04/20/20 23:00 100 H 40 H 124/58 L 96 04/20/20 22:50 117 H 24 96 04/20/20 22:40 101 H 32 H 96 04/20/20 22:31 115 H 36 H 97 04/20/20 22:30 120 H 30 H 140/47 L 98 04/20/20 22:20 104 H 40 H 96 04/20/20 22:11 44 H 04/20/20 22:02 117 H 30 H 97 04/20/20 22:01 124 H 39 H 132/75 95 04/20/20 22:00 128 H 45 H 95 04/20/20 21:50 54 H 96 04/20/20 21:40 102 H 60 H 97 04/20/20 21:30 100 H 15 113/66 96 04/20/20 21:09 133 H 54 H 129/68 95 04/20/20 20:38 97 04/20/20 20:31 99.1 F 106 H 50 H 122/64 97 Laboratory Results Laboratory Results WBC 1.14 K/uL (4.8-10.8) L 04/20/20 20:33 RBC 2.24 M/uL (4.2-5.4) L 04/20/20 20:33 Hgb 5.7 g/dL (12.0-16.0) L* 04/20/20 20:33 Hct 17.7 % (37-47) L* 04/20/20 20:33 MCV 79.0 fL (80-100) L 04/20/20 20:33 MCH 25.4 pg (25-34) 04/20/20 20:33 MCHC 32.2 g/dL (32-36) 04/20/20 20:33 RDW Std Deviation 58.2 fL (36.4-46.3) H 04/20/20 20:33 RDW Coeff of Jacque 20.4 % (11.5-14.5) H 04/20/20 20:33 Plt Count 18 K/uL (130-400) L* 04/20/20 20:33 Absolute Nucleated RBC 0.28 K/uL (0-0) H 04/20/20 20:33 Nucleated RBC % (auto) 24.8 % 04/20/20 20:33 Neutrophils % (Manual) 22.7 % 04/20/20 20:33 Lymphocytes % (Manual) 56.4 % 04/20/20 20:33 Monocytes % (Manual) 5.5 % 04/20/20 20:33 Eosinophils % (Manual) 1.8 % 04/20/20 20:33 Metamyelocytes % (Man) 5.5 % 04/20/20 20:33 Myelocytes % (Man) 3.6 % 04/20/20 20: Promyelocytes % (Man) 0.9 % 04/20/20 20:33 Blast Cells % (Manual) 3.6 % 04/20/20 20:33 Neutrophils # (Manual) 0.26 K/uL (1.4-6.5) L 04/20/20 20: Total Absolute Neuts 0.26 K/uL (1.4-6.5) L* 04/20/20 20:33 Lymphocytes # (Manual) 0.64 K/uL (1.2-3.4) L 04/20/20 20: Total Abs Lymphocytes 0.64 K/uL (1.2-3.4) L 04/20/20 20:33 Monocytes # (Manual) 0.06 K/uL (0.11-0.59) L 04/20/20 20:33 Eosinophils # (Manual) 0.02 K/uL (0-0.5) 04/20/20 20: Metamyelocytes # (Man) 0.06 K/uL (0-0) H 04/20/20 20:33 Myelocytes # (Manual) 0.04 K/uL (0-0) H 04/20/20 20: Promyelocytes # (Man) 0.01 K/uL (0-0) H 04/20/20 20:33 Blast Cells # (Man) 0.04 K/uL (0-0) H 04/20/20 20: Giant Platelets 3+ 04/20/20 20: Hypochromasia Present 04/20/20 20:33 Poikilocytosis Present 04/20/20 20: Anisocytosis Present 04/20/20 20: PT 13.0 Seconds (9.0-12.0) H 04/20/20 20:33 INR 1.2 (0.9-1.1) H 04/20/20 20:33 APTT 31.7 Seconds (21.0-31.0) H 04/20/20 20: PTT Ratio 1.1 04/20/20 20:33 Sodium 140 mmol/L (136-145) 04/20/20 20: Potassium 4.0 mmol/L (3.5-5.1) 04/20/20 20: Chloride 113 mmol/L (98-107) H 04/20/20 20:33 Carbon Dioxide 18 mmol/L (21-32) L 04/20/20 20: Anion Gap 10.0 (3-11) 04/20/20 20:33 BUN 46 mg/dl (7-18) H 04/20/20 20: Creatinine 2.01 mg/dl (0.6-1.2) H 04/20/20 20: Est Cr Clr Drug Dosing 16.7 ml/min 04/20/20 20:33 Est GFR ( Amer) 25.0 04/20/20 20: Est GFR (Non-Af Amer) 21.6 04/20/20 20:33 BUN/Creatinine Ratio 23.0 (10-20) H 04/20/20 20:33 Glucose 211 mg/dl (70-99) H 04/20/20 20: Lactate 1.3 mmol/L (0.4-2.0) 04/20/20 20: Calcium 8.6 mg/dl (8.5-10.1) 04/20/20 20: Magnesium 1.8 mg/dl (1.8-2.4) 04/20/20 20: Total Bilirubin 0.6 mg/dl (0.2-1) 04/20/20 20:33 AST 59 U/L (15-37) H 04/20/20 20:33 ALT 12 U/L (12-78) 04/20/20 20:33 Alkaline Phosphatase 90 U/L (45-117) 04/20/20 20: Troponin I 0.055 ng/ml (0-0.045) H* 04/20/20 23:51 Total Protein 6.9 gm/dl (6.4-8.2) 04/20/20 20: Albumin 3.1 gm/dl (3.4-5.0) L 04/20/20 20:33 Globulin 3.7 gm/dl (2.5-4.0) 04/20/20 20: Albumin/Globulin Ratio 0.8 (0.9-2) L 04/20/20 20:33 Procalcitonin 0.58 ng/ml (0-0.5) H 04/20/20 20:33 Urine Color Yellow 04/20/20 21:29 Urine Appearance Turbid (Clear) A 04/20/20 21: Urine pH 5.0 (4.5-7.5) 04/20/20 21:29 Ur Specific [place] 1.020 (1.000-1.030) 04/20/20 21:29 Urine Protein 3+ (Negative) H 04/20/20 21: Urine Glucose (UA) Negative (Negative) 04/20/20 21: Urine Ketones Trace (Negative) H 04/20/20 21:29 Urine Blood 3+ (Negative) H 04/20/20 21:29 Urine Nitrite Negative (Negative) 04/20/20 21: Urine Bilirubin Negative (Negative) 04/20/20 21:29 Urine Urobilinogen Negative (Negative) 04/20/20 21:29 Ur Leukocyte Esterase 2+ (Negative) H 04/20/20 21:29 Urine WBC (Auto) >30 /hpf (0-5) H 04/20/20 21:29 Urine RBC (Auto) 5-10 /hpf (0-4) H 04/20/20 21:29 U Hyaline Cast (Auto) Not Reportable 04/20/20 21:29 U Epithel Cells (Auto) >30 /lpf (0-5) H 04/20/20 21:29 Urine Bacteria (Auto) 4+ (Negative) H 04/20/20 21:29 Granular Casts 1-5 /lpf (0) H 04/20/20 21:29 Urine Yeast Not Reportable 04/20/20 21:29 Nasal Screen MRSA (PCR) Negative (Negative) 04/21/20 00:10 Blood Type A Positive 04/20/20 20:40 Antibody Screen NEGATIVE 04/20/20 20:40 Crossmatch See Detail 04/20/20 20:40 Code Status & VTE Plan Code Status Full code VTE Prophylaxis Plan VTE Prophylaxis will be ordered: Yes PG Care Time/CCT Total # of Minutes Spent Total Time Spent with Patient: Total time spent is greater than 50% in coordin ation of care (as documented) at patient's floor/unit and/or counseling patient: Coding Level of Care Code 30686 Initial Inpt Care Lvl 3 Diagnoses Fever and neutropenia D70.9; R50.81 Sepsis A41.9 Sepsis acute organ dysfunction status: unspecified Sepsis type: sepsis due to unspecified organism Anemia D61.811 Anemia type: bone marrow failure Bone marrow failure anemia type: pancytopenia, other drug-induced Thrombocytopenia D69.6 Agitation R45.1 CKD (chronic kidney disease), stage IV N18.4 PAF (paroxysmal atrial fibrillation) I48.0 Elevated troponin I level R79.89 (1) Anemia Anemia type: bone marrow failure Bone marrow failure anemia type: pancytopenia, other drug-induced Qualified Code(s): D61.811 - Other drug- induced pancytopenia (2) Sepsis Sepsis acute organ dysfunction status: unspecified Sepsis type: sepsis due to unspecified organism Qualified Code(s): A41.9 - Sepsis, unspecified organism
[2020-04-21] MEDS: SODIUM CHLORIDE 0.9% 1000ML 1,000 ML IV SCH ×2 (06:25→21:21)
--- NOTE | 2020-04-21 06:56 | XRay Report ---
XR chest 1V portable HISTORY: 89 years-old Female SEPSIS acute sepsis COMPARISON: Chest radiograph 07/11/2017 TECHNIQUE: Portable AP view of the chest FINDINGS: Cardiomediastinal and hilar silhouettes are unchanged. Dense calcifications of the mitral annulus. No pneumothorax, pleural effusion or overt pulmonary edema. Asymmetric ill-defined left infrahilar opac ities. Degenerative changes of the shoulders and spine. Lumbar levoscoliosis. IMPRESSION: Ill-defined left infrahilar opacities may be secondary to summation density versus airspa ce disease. This could be confirmed with follow-up PA and lateral views of the chest. ACT 112: Negative or not required by law. The above report was generated using voice recognition software. It may contain grammatical, syntax o r spelling errors. Electronically signed by: Von Matute M.D. 04/21/2020 6:54 AM
[2020-04-21 07:34] LABS: Albumin Level 2.9 gm/dl (3.4-5.0); BUN Creatinine Ratio 22.9 (10-20); Calcium 8.8 mg/dl (8.5-10.1); Est GFR (Non-African American) 21.6; Magnesium 1.8 mg/dl (1.8-2.4)
[2020-04-21 07:37] LABS: Albumin Globulin Ratio 0.8 (0.9-2); Bilirubin,Total 0.9 mg/dl (0.2-1); Globulin 3.8 gm/dl (2.5-4.0); Total Protein 6.7 gm/dl (6.4-8.2)
[2020-04-21 07:51] LABS: Hemoglobin 8.6 g/dL (12.0-16.0); Mean Corpuscular Hemoglobin 27.7 pg (25-34); Mean Corpuscular Hgb Conc 34.4 g/dL (32-36); Mean Corpuscular Volume 80.4 fL (80-100); Nucleated RBC # (auto) 0.57 K/uL (0-0); Nucleated RBC % (auto) 31.1 %; Platelet Count 15 K/uL (130-400); RDW Coefficient of Variation 17.3 % (11.5-14.5); RDW Standard Deviation 49.9 fL (36.4-46.3); Red Blood Count 3.11 M/uL (4.2-5.4); White Blood Count 1.85 K/uL (4.8-10.8)
[2020-04-21 08:01] LABS: Estimated Average Glucose 154 mg/dl
[2020-04-21] MEDS ORDERED: SODIUM CHLORIDE 0.9% 250 ML IV PRN (08:06)
[2020-04-21 08:56] LABS: Dohle Bodies 1+; Giant Platelets 1+; Schistocytes 1+; Smudge Cells Present; Toxic Granulation 1+; Toxic Vacuolation 1+
[2020-04-21] MEDS: INSULIN ASPART 100 UNITS/ML 3 ML PEN SC SCH ×4 (08:56→21:19)
[2020-04-21] MEDS: CEFEPIME 1,000 MG in SYRINGE 0 ML IV SCH ×2 (08:57→21:21)
[2020-04-21] MEDS: FOLIC ACID 1 MG TAB PO SCH (08:57)
[2020-04-21] MEDS: ACETAMINOPHEN 325 MG TAB PO SCH ×3 (08:57→21:18)
[2020-04-21] MEDS ORDERED: MENTHOL TOP SCH (09:00)
[2020-04-21] MEDS ORDERED: NON-FORMULARY MEDICATION (Cranberry Fruit [Cranberry] 450 MG) PO SCH (09:00)
[2020-04-21] MEDS ORDERED: FILGRASTIM 480 MCG/1.6 ML VIAL SC SCH (09:00)
[2020-04-21 09:09] LABS: ALC (manual) 1.16 K/uL (1.2-3.4); ANC (manual) 0.18 K/uL (1.4-6.5); Basophils # (manual) 0.04 K/uL (0-0.2); Blast # (manual) 0.05 K/uL (0-0); Blast Cells % (manual) 2.9 %; Eosinophils # (manual) 0.04 K/uL (0-0.5); Lymphocytes # (manual) 1.16 K/uL (1.2-3.4); Lymphocytes % (manual) 62.7 %; Metamyelocytes # (manual) 0.13 K/uL (0-0); Metamyelocytes % (manual) 6.9 %; Monocytes # (manual) 0.05 K/uL (0.11-0.59); Monocytes % (manual) 2.9 %; Myelocytes # (manual) 0.07 K/uL (0-0); Myelocytes % (manual) 3.9 %; Neutrophils # (manual) 0.18 K/uL (1.4-6.5); Neutrophils % (manual) 9.8 %; Promyelocytes # (manual) 0.13 K/uL (0-0); Promyelocytes % (manual) 6.9 %
--- NOTE | 2020-04-21 17:05 | Hospitalist Progress Note ---
Date of Service April 21, 2020 Assessment & Plan (1) Fever and neutropenia: Mrs. Holloway is an 89 yo woman with a PMHx of lymphoma and leukemia, currently undergoing chemotherapy who was admitted 04/21/20 septic with neutropenic fever. She is currently hemodynamically stable. The source of her infection appears to be urinary; on IV Cefepime. - WBC 1.14, ANC at 0.5 on admission - febrile on admission, fever has since resolved - SIRS criteria met - source of infection appears to be urinary tract; treating with IV cefepime - continue NSS at 60mls/hr (2) Sepsis: - SIRS criteria met on admission - afebrile, hemodynamically stable on exam today - source is presumed UTI; treating with IV cefepime (3) Anemia: - Hemoglobin 5.7 upon admission - patient received 2 units - Hgb improved to 8.6 - urine in medina bag is blood tinged, but unlikely to be secondary to be source of significant blood loss - continue to monitor with CBC in am (4) Thrombocytopenia: - Platelets at 15k this am - no overt bleeding at this time - transfused 1 unit of platelets - monitor CBC in am (5) CKD (chronic kidney disease), stage IV: - Creatinine 2.01 upon admission, with range 1.25-1.83. - continue IVF - Hold lisinopril - Repeat laboratories in a.m. (6) Agitation: - lorazepam prn (7) PAF (paroxysmal atrial fibrillation): - currently not on anticoagulation or rate control agent - in sinus rhythm on exam (8) UTI (urinary tract infection): - UA concerning on admission - patient too lethargic to attest to any urinary tract symptoms - started on IV Cefepime - follow urine culture (9) Elevated troponin I level: - Troponin peaked to 0.06, downtrending - Likely secondary to demand ischemia in high-output state Dispo: tele Diet: regular, soft texture DVT ppx: contraindicated due to thombocytopenia Code: full; unable to reach POA Admission and Anticipated Discharge Date Admission Date: April 20, 2020 Supervising Physician Co-Signing Physician Notes I personally examined the patient and verified all qureshi points of history and exam, discussed case, and agree with decision making with Dr Espinoza. awake and interactive, although pleasantly confused. no focal complaints, just wants to see shala. case d/w oncology PA-Bryan vitals noted nad heent nc at mmm breathing unlabored no accessory muscles good effort lungs clear no r/r/w good effort skin no rashes no erythema no pallor or icterus neuro no focal deficits neutropenic sepsis - most likely from urinary source - appearing to stabilize. follow, continue current care antineoplastic therapy induced pancytopenia - supportive care, treated wtih 2 units PRBC and 1 unit plt. follow otherwise as above Subjective Patient lying in bed, able to open eyes but no meaningful conversation Review of Systems Review of Systems: Unobtainable due to cognitive status Physical Exam Constitutional: + frail appearing; no acute distress Eyes: PERRL, conjunctivae normal, anicteric sclerae ENMT: external ear and nose normal, oropharynx normal Mouth: no oral mucosal abnormality Neck: normal visual inspection and trachea midline Respiratory: normal respiratory effort, lungs clear to auscultation Auscultation: no crackles Cardiovascular: Rate/Rhythm: regular rate and regular rhythm Heart Sounds: normal S1, normal S2 and + murmur (systolic ejection murmur) Gastrointestinal (Abdomen): normal bowel sounds, soft, nontender, no hepatosplenomegaly Skin: no rashes, warm and dry Genitourinary: Medina catheter in place, draining blood tingued urine Results & Data Results & Data ([facility]) Vital Signs (Past 12 Hours) Vital Signs Temp Pulse Pulse Resp BP BP Pulse Ox 04/21/20 16:00 98 H 04/21/20 14:52 36.8 C 93 H 20 144/69 H 94 04/21/20 13:19 37.2 C 98 H 18 133/64 97 04/21/20 12:07 37.3 C 96 H 20 131/71 96 04/21/20 11:07 37.0 C 94 H 94 H 18 144/59 H 144/54 H 95 04/21/20 10:37 37.0 C 97 H 18 147/73 H 97 04/21/20 10:22 36.9 C 97 H 20 151/73 H 96 04/21/20 10:05 36.7 C 95 H 16 144/72 H 97 04/21/20 07:14 37.1 C 99 H 18 143/67 H 94 04/21/20 07:00 98 H Resident Activity Tracking Resident Involvement: Resident Care Provided Care Provided: Adult Hospital Medicine (1) Anemia Anemia type: bone marrow failure Bone marrow failure anemia type: pancytopenia, other drug-induced Qualified Code(s): D61.811 - Other drug- induced pancytopenia (2) Sepsis Sepsis acute organ dysfunction status: unspecified Sepsis type: sepsis due to unspecified organism Qualified Code(s): A41.9 - Sepsis, unspecified organism
[2020-04-21] MEDS ORDERED: MELATONIN 3 MG TAB PO PRN (17:15)
[2020-04-21] MEDS ORDERED: PROMETHAZINE HCL 6.25 MG in SODIUM CHLORIDE 0.9% 50 ML IV PRN (17:15)
--- NOTE | 2020-04-21 17:29 | Electrocardiogram Report ---
Test Reason : Blood Pressure : / mmHG Vent. Rate : 106 BPM Atrial Rate : 106 BPM P-R Int : 182 ms QRS Dur : 126 ms QT Int : 382 ms P-R-T Axes : 090 038 101 degrees QTc Int : 507 ms Sinus tachycardia Left bundle branch block Abnormal ECG When compared with ECG of 11-JUL-2017 20:35, Left bundle branch block is now Present Confirmed by Viet Block ([id number]) on 04/21/2020 5:28:39 PM Referred By: REFERRED SELF Confirmed By:Gopi Block
--- NOTE | 2020-04-21 18:15 | Communication Note ---
Date of Service: April 21, 2020 At the end of the day I was able to reach her POA, a lifelong friend named Sukumar. He provided verbal consent for future blood product transfusions. He con firmed her code status as "full," although the conversation was inhibited by a sound barrier, so I do question is understanding of the content. He does not have a car, so he is unable to come visit her here in the hospital. Resident Activity Tracking Resident Involvement: Resident Care Provided Care Provided: Adult Hospital Medicine
--- NOTE | 2020-04-21 18:49 | Billing Data ---
Date of Service April 21, 2020 Coding Level of Care Code 51984 Subseq Hosp Care Lvl 3
[2020-04-21] MEDS: PANTOprazole 40 MG in SYRINGE 0 ML IV SCH (22:37)
[2020-04-22] MEDS ORDERED: INSULIN ASPART 100 UNITS/ML 3 ML PEN SC SCH (01:15)
[2020-04-22] MEDS: INSULIN ASPART 100 UNITS/ML 3 ML PEN SC SCH ×3 (06:41→18:49)
[2020-04-22 08:10] LABS: Mean Corpuscular Hgb Conc 34.4 g/dL (32-36); Nucleated RBC # (auto) 0.36 K/uL (0-0); Nucleated RBC % (auto) 26.1 %; Platelet Count 39 K/uL (130-400)
[2020-04-22 08:11] LABS: Hematocrit (blood only) 19.5 % (37-47); Hemoglobin 6.7 g/dL (12.0-16.0); Mean Corpuscular Hemoglobin 27.6 pg (25-34); Mean Corpuscular Volume 80.2 fL (80-100); RDW Coefficient of Variation 18.4 % (11.5-14.5); Red Blood Count 2.43 M/uL (4.2-5.4); White Blood Count 1.37 K/uL (4.8-10.8)
[2020-04-22 08:23] LABS: BUN Creatinine Ratio 27.2 (10-20); Calcium 8.1 mg/dl (8.5-10.1); Creatinine Clr Calc Pharmacy 17.3 ml/min; Est GFR (African American) 27.2; Est GFR (Non-African American) 23.4
[2020-04-22] MEDS ORDERED: SODIUM CHLORIDE 0.9% 250 ML IV PRN ×2 (08:27→09:13)
[2020-04-22 08:38] LABS: ALC (manual) 1.05 K/uL (1.2-3.4); ANC (manual) 0.16 K/uL (1.4-6.5); Lymphocytes # (manual) 1.05 K/uL (1.2-3.4); Monocytes # (manual) 0.08 K/uL (0.11-0.59); Myelocytes # (manual) 0.07 K/uL (0-0); Neutrophils # (manual) 0.16 K/uL (1.4-6.5); Schistocytes 1+
[2020-04-22] MEDS: PANTOprazole 40 MG in SYRINGE 0 ML IV SCH (08:41)
[2020-04-22] MEDS: CEFEPIME 1,000 MG in SYRINGE 0 ML IV SCH (08:41)
[2020-04-22] MEDS: FOLIC ACID 1 MG TAB PO SCH (08:41)
[2020-04-22] MEDS: ACETAMINOPHEN 325 MG TAB PO SCH ×4 (08:41→21:34)
[2020-04-22] MEDS: SODIUM CHLORIDE 0.45 % 1,000 ML IV SCH (08:55)
--- NOTE | 2020-04-22 11:58 | Hospitalist Progress Note ---
Date of Service April 22, 2020 Assessment & Plan (1) Fever and neutropenia: Mrs. Holloway is an 89 yo woman with a PMHx of lymphoma and leukemia, currently undergoing chemotherapy who was admitted 04/21/20 septic with neutropenic fever. She is currently hemodynamically stable. The source of her infection appears to be urinary tract infection with e.coli, on IV ceftriaxone. Patient with episode of hematochezia overnight, started on IV protonix and made NPO. On further assessment, GI bleed more likely derived from a lower tract etiology. Anticipate cell counts to rise as we are past deidra from most recent chemo, infection is being treated and GI bleed is resolving. - WBC 1.14, ANC at 0.5 on admission. WBC improved minimally to 1.37 today - febrile on admission, fever has since resolved - source of infection appears to be urinary tract; treating with IV ceftriaxone - continue NSS at 60mls/hr (2) Sepsis: - SIRS criteria met on admission - afebrile, hemodynamically stable on exam today - source is presumed UTI; treating with IV ceftriazone (3) Anemia: - Hemoglobin 5.7 on admission. patient received 2 units and value improved to 8.6. - episode of hematochezia overnight, Hgb at 6.7 this am. additional unit of irradiated pRBCs ordered - urine in [place] bag is blood tinged, but unlikely to be secondary to be source of significant blood loss - bone marrow suppression from recent chemo likely causing decreased RBC production - etiology is therefore likely due to production (from chemo) and loss (GI bleed) - continue to monitor CBC - transfuse if Hgb < 7 - blood product consent signed and in chart (consent provided by patient's POA) (4) Hematochezia: - patient with several bloody BMs overnight - Hgb down to 6.7 from 8.3 - patient without upper GI symptoms (nausea/vomiting, epigastric pain) - suspect secondary to a lower GI bleed (diverticular or AVM) rather than upper etiology - will d/c protonix - while colonoscopy would shed light on exact cause, it is unclear if a procedure is safe with ongoing pancytopenia, and even if it were, an intervention would almost certainly cause additional blood loss and worsen her current anemia. There is a small chance a malignancy could be identified and resected at a later date (when acute anemia resolves), but considering patient's overall frailty, probability of tolerated a hemicolectomy seems low, and current chemotherapy regimen is proving nearly all she can phsyiology stand - monitor CBC and transfuse as needed (5) Thrombocytopenia: - Platelets at 15k on 04/21, improved to 37K after 1 unit transfusion - monitor CBC in am (6) CKD (chronic kidney disease), stage IV: - Creatinine 2.01 upon admission, down to 1.8 today - baseline range 1.25-1.83. - continue IVF - Hold lisinopril - Repeat laboratories in a.m. (7) Agitation: - lorazepam prn (8) PAF (paroxysmal atrial fibrillation): - currently not on anticoagulation or rate control agent - in sinus rhythm on exam (9) UTI (urinary tract infection): - UA concerning on admission - urine culture growing e.coli sensitive to ceftriaxone - deescalated abx from cefepime to ceftriaxone - per pharmacy, when patient is d/c, recommend renally dosing of cefdinir, 300mg, once daily (10) Elevated troponin I level: - Troponin increased to 0.07. - Likely secondary to demand ischemia in high-output state - will not trend any further, as increase would not prompt any intervention. If patient were to go to cathode ray tube assembler for stent placement, she would likely not tolerate dual-antiplatelet therapy in post-operative course due to ongoing pancytopenia and current lower GI bleed. Even if managed medically, heparin drip would be contraindicated in setting of acute lower GI bleed and thro mbocytopenia. Dispo: tele Diet: regular, soft texture DVT ppx: contraindicated due to thrombocytopenia Code: DNR/DNI Admission and Anticipated Discharge Date Admission Date: April 20, 2020 Supervising Physician Co-Signing Physician Notes I personally examined the patient and verified all qureshi points of history and exam, discussed case, and agree with decision making with Dr Eldridge. much more alert for dr eldridge earlier - when revisited she is asleep for me, although no distress. doesn't really rouse to voice or stethoscope vitals noted nad heent nc at mmm breathing unlabored no accessory muscles good effort lungs clear no r/r/w good effort skin no rashes no erythema no pallor or icterus neuro no focal deficits at rest neutropenic sepsis - most likely from urinary source - streamline abx. antineoplastic therapy induced pancytopenia - supportive care, treated with 3 units PRBC and 1 unit plt. follow GI bleeding - likely related to thrombocytopenia unmasking occult GI source. no s/s c/w UGI - suspect AVM or diverticular most likely, vs malignant less likely but psosible. either way would not be safe for scope w current status, unclear if further evaluation would be of any benefit to her well being either code status discussions dr eldridge had noted, appreciated her discussing with pt and then since pt does have dementia but seemed quite lucid at the time of their discussions, then discussing w POA as well so as not to assume - however, definitely agree that DNR/DNI status would be most appropriate for bruce given her overall frailty/comorbidities/etc otherwise as above Subjective Patient initially lethargic, but perks up quickly when discussing her friend and ROQUEPrashanth Jackson. She denies any current discomfort. Night team reported an episode of bloody BM overnight, she was started on IV protonix and made NPO. She says she would not want any life saving intervention done to her in the event her heart stops or she stops breathing. She said "god will take me when he is ready for him, there is no sense fighting his will." When asked further about ongoing management plans, it sounds as if she only wants simple medical care that she can receive at [facility] - she does not want to be brought back in the hospital for further treatments. Review of Systems Review of Systems: All systems reviewed & are unremarkable except as noted in HPI & below Physical Exam Constitutional: + frail appearing; no acute distress Eyes: PERRL, conjunctivae normal, anicteric sclerae ENMT: external ear and nose normal, oropharynx normal Mouth: no oral mucosal abnormality Neck: normal visual inspection and trachea midline Respiratory: normal respiratory effort, lungs clear to auscultation Auscultation: no crackles Cardiovascular: Rate/Rhythm: regular rate and regular rhythm Heart Sounds: normal S1, normal S2 and + murmur (systolic ejection murmur) Gastrointestinal (Abdomen): normal bowel sounds, soft, nontender, no hepat osplenomegaly Skin: no rashes, warm and dry Psychiatric: Orientation: oriented to person and oriented to time (year, not month, [facility] + not oriented to place (thought she was in [facility]) Genitourinary: [place] in place Results & Data Results & Data ([facility]) Vital Signs (Past 12 Hours) Vital Signs Temp Pulse Pulse Resp BP BP Pulse Ox 04/22/20 11:01 36.6 C 80 16 141/59 H 96 04/22/20 10:31 36.5 C 77 16 131/64 97 04/22/20 10:16 36.5 C 79 16 131/63 98 04/22/20 09:58 36.5 C 80 16 129/52 L 98 04/22/20 08:00 83 04/22/20 07:27 36.5 C 82 16 148/72 H 97 04/22/20 03:17 36.8 C 84 20 104/56 L 98 04/21/20 23:59 94 H Resident Activity Tracking Resident Involvement: Resident Care Provided Care Provided: Adult Hospital Medicine (1) Anemia Anemia type: bone marrow failure Bone marrow failure anemia type: pancytopenia, other drug-induced Qualified Code(s): D61.811 - Other drug- induced pancytopenia (2) Sepsis Sepsis acute organ dysfunction status: unspecified Sepsis type: sepsis due to unspecified organism Qualified Code(s): A41.9 - Sepsis, unspecified organism
--- NOTE | 2020-04-22 17:02 | Communication Note ---
Date of Service: April 22, 2020 Spoke with patient's POA Sukumar late this afternoon - I described the conversation I had with Bibiana today regarding code status, and how she told me she would like to be a DNR/DNI. I told him how Bibiana said " when God wants to take me, its my time, and there is no sense fighting his will." Sukumar confirmed that this was "exactly something Bibiana would say." Her code status was officially changed to DNR/DNI in chart. I also spoke with him about her ongoing care - we discussed the principle of qualify of life vs. life prolonging care. Sukumar was in favor of quality over "quantity." He did not outright say to stop her chemotherapy, but his responses in our conversation indicated he was of this opinion.
--- NOTE | 2020-04-22 17:42 | Billing Data ---
Date of Service April 22, 2020 Coding Level of Care Code 12704 Subseq Hosp Care Lvl 3
[2020-04-22] MEDS: cefTRIAXone SODIUM 2,000 MG in DEXTROSE 5% 50 ML IV SCH (21:30)
[2020-04-23] MEDS: SODIUM CHLORIDE 0.45 % 1,000 ML IV SCH (03:30)
[2020-04-23] MEDS: INSULIN ASPART 100 UNITS/ML 3 ML PEN SC SCH ×5 (06:05→22:07)
[2020-04-23 06:34] LABS: BUN Creatinine Ratio 30.9 (10-20); Calcium 7.7 mg/dl (8.5-10.1); Creatinine Clr Calc Pharmacy 18.6 ml/min; Est GFR (African American) 31.8; Est GFR (Non-African American) 27.4
[2020-04-23 06:48] LABS: Mean Corpuscular Hgb Conc 33.9 g/dL (32-36)
[2020-04-23 07:01] LABS: ALC (manual) 0.52 K/uL (1.2-3.4); ANC (manual) 0.05 K/uL (1.4-6.5); Blast # (manual) 0.03 K/uL (0-0); Eosinophils # (manual) 0.05 K/uL (0-0.5); Eosinophils % (manual) 5.9 %; Giant Platelets 1+; Hematocrit (blood only) 22.7 % (37-47); Hemoglobin 7.7 g/dL (12.0-16.0); Hypogranular Neutrophils 1+; Lymphocytes # (manual) 0.52 K/uL (1.2-3.4); Lymphocytes % (manual) 67.3 %; Mean Corpuscular Hemoglobin 26.8 pg (25-34); Mean Corpuscular Volume 79.1 fL (80-100); Metamyelocytes # (manual) 0.01 K/uL (0-0); Monocytes # (manual) 0.07 K/uL (0.11-0.59); Monocytes % (manual) 8.9 %; Myelocytes # (manual) 0.04 K/uL (0-0); Neutrophils # (manual) 0.05 K/uL (1.4-6.5); Neutrophils % (manual) 6.9 %; Nucleated RBC % (auto) 26.4 %; Platelet Count 22 K/uL (130-400); Platelet Estimate Decreased (Normal); Promyelocytes # (manual) 0.01 K/uL (0-0); RDW Coefficient of Variation 17.6 % (11.5-14.5); RDW Standard Deviation 50.6 fL (36.4-46.3); Red Blood Count 2.87 M/uL (4.2-5.4); Schistocytes Occasional; White Blood Count 0.78 K/uL (4.8-10.8)
[2020-04-23] MEDS: ACETAMINOPHEN 325 MG TAB PO SCH ×4 (08:24→22:03)
[2020-04-23] MEDS: FOLIC ACID 1 MG TAB PO SCH ×2 (08:24→09:44)
[2020-04-23] MEDS ORDERED: DEXTROSE 5% 1,000 ML IV SCH (08:45)
--- NOTE | 2020-04-23 13:32 | Hospitalist Progress Note ---
Date of Service April 23, 2020 Assessment & Plan (1) Fever and neutropenia: Mrs. Holloway is an 89 yo woman with a PMHx of lymphoma and leukemia, currently undergoing chemotherapy who was admitted 04/21/20 septic with neutropenic fever. She is currently hemodynamically stable. The source of her infection appears to be urinary tract infection with e.coli, on IV ceftriaxone. Patient with episode of hematochezia overnight, started on IV protonix and made NPO. On further assessment, GI bleed more likely derived from a lower tract etiology. Anticipate cell counts to rise as we are past deidra from most recent chemo, infection is being treated and GI bleed is resolving. - WBC 1.14, ANC at 0.5 on admission. WBC improved minimally to 1.37, now today decreased to 0.78 with Total ab Neutrophils decreased to 0.05 from 0.16 - No recent fevers, no documentation of fevers, was sent by [facility] for fever. - source of infection appears to be urinary tract which grew E. coli with sensitive to Ceftriaxone; treating with IV ceftriaxone - continue D5W at 80mls/hr Dispo: transferred today from tele to med/surg Diet: regular, soft texture, was refusing food today DVT ppx: contraindicated due to thrombocytopenia, possible GI bleed and was requiring blood transfusions here Code: DNR/DNI (2) Sepsis: - SIRS criteria met on admission - afebrile, hemodynamically stable - source is UTI as above; treating with IV ceftriazone (3) Anemia: - Hemoglobin 5.7 on admission. patient received 2 units and value improved to 8.6. - prior episode of hematochezia overnight, Hgb at 6.7 on 04/22. additional unit of irradiated pRBCs ordered - Thus far has received a total of 3 units pRBC, Hgb this morning 7.7 - bone marrow suppression from recent chemo likely causing decreased RBC production - etiology is therefore likely due to production (from chemo) and loss (GI bleed) - continue to monitor CBC - transfuse if Hgb < 7 - blood product consent signed and in chart (consent provided by patient's POA) (4) Hematochezia: - No reported bloody BMs overnight - patient without upper GI symptoms (nausea/vomiting, epigastric pain) - suspect secondary to a lower GI bleed (diverticular or AVM) rather than upper etiology - will d/c protonix - while colonoscopy would shed light on exact cause, it is unclear if a procedure is safe with ongoing pancytopenia, and even if it were, an intervention would almost certainly cause additional blood loss and worsen her current anemia. There is a small chance a malignancy could be identified and resected at a later date (when acute anemia resolves), but considering patient's overall frailty, probability of tolerated a hemicolectomy seems low, and current chemotherapy regimen is proving nearly all she can phsyiology stand - monitor CBC and transfuse as needed (5) Thrombocytopenia: - Platelets at 15k on 04/21, improved to 37K after 1 unit transfusion - This AM 22k without signs of bleeding - monitor CBC in am (6) CKD (chronic kidney disease), stage IV: - Creatinine 2.01 upon admission, down to 1.65 today - baseline range 1.25-1.83. - continue IVF - Hold lisinopril - Repeat laboratories in a.m. (7) Agitation: - lorazepam prn (8) PAF (paroxysmal atrial fibrillation): - currently not on anticoagulation or rate control agent - in sinus rhythm on exam (9) UTI (urinary tract infection): - urine culture growing e.coli sensitive to ceftriaxone - previously deescalated abx from cefepime to ceftriaxone - per pharmacy, when patient is d/c, recommend renally dosing of cefdinir, 300mg, once daily (10) Elevated troponin I level: - Troponin increased to 0.07. - Likely secondary to demand ischemia in high-output state - will not trend any further, as increase would not prompt any intervention. If patient were to go to laboratory technical specialist for stent placement, she would likely not tolerate dual-antiplatelet therapy in post-operative course due to ongoing pancytopenia and current lower GI bleed. Even if managed medically, heparin drip would be contraindicated in setting of acute lower GI bleed and thrombocytopenia. (11) Hypernatremia: Na 149 today C/w D5W @ 80ml/hr trend (12) Tachypnea: Visibly tachypneic while awake, but denies any dyspnea or difficulty taking a deep breath. Considered respiratory compensation for metabolic infection but without elevated AG unsure of etiology. She appears mildly tachypneic at rest which appears to worsen when awake. On antibiotic and lungs are moving good air without complaint to me this morning but does not shortness of breath on team rounds without pain. O2 sat 97% on RA. No elevated AG. Perhaps could be psychogenic response. CO2 level of 14 today ABG ordered to investigate etiology Admission and Anticipated Discharge Date Admission Date: April 20, 2020 Supervising Physician Co-Signing Physician Notes I personally examined the patient and verified all qureshi points of history and exam, discussed case, and agree with decision making with Dr Espinoza. on directed questioning notes dyspnea - but does not bring it up herself. no spontanous complaints vitals noted nad heent nc at mmm breathing mildly tachypnic wheile sleeping, moderately once she is awake no accessory muscles good effort lungs clear no r/r/w good effort skin no rashes no erythema no pallor or icterus neuro no focal deficits at rest neutropenic sepsis - most likely from urinary source - rocephin hyperchloremic metabolic acidosis - showing compensatory tachypnea at the bedside - won't allow ABG/VBG. after d/w heme/onc - very concerning for tumor lysis, but give frailty/inability to treat leukemia itself more aggressively/etc - supportive care for this more or less amounts to fluids, monitoring. (when/if she allows labs, ABG would be helpful in acid/base, uric acid, LDH (recently was quite high), phos would be helpful in signs of tumor lysis) pancytopenia - after discussions w heme/onc (first PA-C then DO) - pt has NOT been on treatment - pancytopenia is resultant from her leukemia not from treatment, making prognosis even more worrisome. thus far has needed 3 units PRBC, 1 unit platelets. GI bleeding - likely related to thrombocytopenia unmasking occult GI source. no s/s c/w UGI - suspect AVM or diverticular most likely, vs malignant less likely but possible. either way would not be safe for scope w current status, unclear if further evaluation would be of any benefit to her well being either. no bleeding today noted. otherwise as above Subjective No acute events reported overnight. This morning was notified via nursing that patient removed telemetry, was refusing morning meds and morning breakfast, they noted she was not agitated. At bedside, she is resting with comfort. She notes chronic back pain. She states she would accept morning medications. She removed telemetry as she feels more comfortable without it. She denies any trouble breathing. Nursing notes she appears tachypneic when awake and talking. She denies any chest pains, nausea, vomiting, diarrhea. No black or bloody BMs reported. No additional signs of bleeding reported. She notes she grew up in [place], [place]. She birthed 6 children, 4 boys/2girls. She notes that she is strong from raising 6 kids and shows me her bicep. Physical Exam Constitutional: + thin, cooperative and comfortable; no acute distress Eyes: PERRL, conjunctivae normal, anicteric sclerae ENMT: appearance of dry blood from left nare Neck: normal visual inspection and trachea midline Respiratory: normal respiratory effort, lungs clear to auscultation Cardiovascular: Rate/Rhythm: regular rate and regular rhythm Extremities: no pedal edema Gastrointestinal (Abdomen): Percussion/Palpation: abdomen soft; abdomen nontender, no guarding and abdomen not rigid Musculoskeletal: Head/Neck/Chest: normocephalic and head atraumatic Skin: multiple diffuse ecchymosis in various stages of healing Neurologic: moves all extremities and awake Psychiatric: Orientation: alert and oriented x 3 Eye Contact: + fair eye contact There was some mild confusion. She notes that her mother is still alive...when asked that this probably isn't possible patient appeared mildly confused regarding the logic of this. Results & Data Results & Data ([facility]) Vital Signs (Past 12 Hours) Vital Signs Temp Pulse Resp BP Pulse Ox 04/23/20 11:53 37.4 C 65 20 147/61 H 97 04/23/20 07:50 37.2 C 61 20 143/70 H 98 04/23/20 05:09 36.9 C 78 20 143/63 H 91 Laboratory Results Laboratory Results - last 24 hr 04/20/20 04/22/20 04/23/20 20:40 18:36 00:17 WBC RBC Hgb Hct MCV MCH MCHC RDW Std Deviation RDW Coeff of Jacque Plt Count Absolute Nucleated RBC Nucleated RBC % (auto) Neutrophils % (Manual) Lymphocytes % (Manual) Monocytes % (Manual) Eosinophils % (Manual) Metamyelocytes % (Man) Myelocytes % (Man) Promyelocytes % (Man) Blast Cells % (Manual) Neutrophils # (Manual) Total Absolute Neuts Lymphocytes # (Manual) Total Abs Lymphocytes Monocytes # (Manual) Eosinophils # (Manual) Metamyelocytes # (Man) Myelocytes # (Manual) Promyelocytes # (Man) Blast Cells # (Man) Hyposegmented Neuts Hypogranular Neuts Platelet Estimate Giant Platelets Schistocytes Sodium Potassium Chloride Carbon Dioxide Anion Gap BUN Creatinine Est Cr Clr Drug Dosing Est GFR ( Amer) Est GFR (Non-Af Amer) BUN/Creatinine Ratio Glucose POC Glucose 127 H 124 H Calcium Crossmatch See Detail 04/23/20 04/23/20 04/23/20 05:52 05:52 07:26 WBC 0.78 L* RBC 2.87 L Hgb 7.7 L Hct 22.7 L MCV 79.1 L MCH 26.8 MCHC 33.9 RDW Std Deviation 50.6 H RDW Coeff of Jacque 17.6 H Plt Count 22 L* Absolute Nucleated RBC 0.20 H Nucleated RBC % (auto) 26.4 Neutrophils % (Manual) 6.9 Lymphocytes % (Manual) 67.3 Monocytes % (Manual) 8.9 Eosinophils % (Manual) 5.9 Metamyelocytes % (Man) 1.0 Myelocytes % (Man) 5.0 Promyelocytes % (Man) 1.0 Blast Cells % (Manual) 4.0 Neutrophils # (Manual) 0.05 L Total Absolute Neuts 0.05 L* Lymphocytes # (Manual) 0.52 L Total Abs Lymphocytes 0.52 L Monocytes # (Manual) 0.07 L Eosinophils # (Manual) 0.05 Metamyelocytes # (Man) 0.01 H Myelocytes # (Manual) 0.04 H Promyelocytes # (Man) 0.01 H Blast Cells # (Man) 0.03 H Hyposegmented Neuts 1+ Hypogranular Neuts 1+ Platelet Estimate Decreased L Giant Platelets 1+ Schistocytes Occasional Sodium 149 H Potassium 4.0 Chloride 124 H Carbon Dioxide 14 L Anion Gap 11.0 BUN 51 H Creatinine 1.65 H Est Cr Clr Drug Dosing 18.6 Est GFR ( Amer) 31.8 Est GFR (Non-Af Amer) 27.4 BUN/Creatinine Ratio 30.9 H Glucose 110 H POC Glucose 119 H Calcium 7.7 L Crossmatch 04/23/20 11:40 WBC RBC Hgb Hct MCV MCH MCHC RDW Std Deviation RDW Coeff of Jacque Plt Count Absolute Nucleated RBC Nucleated RBC % (auto) Neutrophils % (Manual) Lymphocytes % (Manual) Monocytes % (Manual) Eosinophils % (Manual) Metamyelocytes % (Man) Myelocytes % (Man) Promyelocytes % (Man) Blast Cells % (Manual) Neutrophils # (Manual) Total Absolute Neuts Lymphocytes # (Manual) Total Abs Lymphocytes Monocytes # (Manual) Eosinophils # (Manual) Metamyelocytes # (Man) Myelocytes # (Manual) Promyelocytes # (Man) Blast Cells # (Man) Hyposegmented Neuts Hypogranular Neuts Platelet Estimate Giant Platelets Schistocytes Sodium Potassium Chloride Carbon Dioxide Anion Gap BUN Creatinine Est Cr Clr Drug Dosing Est GFR ( Amer) Est GFR (Non-Af Amer) BUN/Creatinine Ratio Glucose POC Glucose 143 H Calcium Crossmatch Medications Administered Acetaminophen (Tylenol) 650 mg PO TID [facility] Stop: 05/21/20 08:59 Last Admin: 04/23/20 09:44 Dose: Not Given Documented by: [id number] Admin: 04/22/20 21:34 Dose: Not Given Documented by: [id number] Admin: 04/22/20 13:28 Dose: 650 mg Documented by: [id number] Admin: 04/22/20 08:41 Dose: Not Given Documented by: [id number] Admin: 04/21/20 21:18 Dose: 650 mg Documented by: [id number] Admin: 04/21/20 14:38 Dose: Not Given Documented by: [id number] Admin: 04/21/20 08:57 Dose: Not Given Documented by: [id number] Folic Acid (Folvite) 1 mg PO DAILY [facility] Stop: 05/21/20 08:59 Last Admin: 04/23/20 09:44 Dose: Not Given Documented by: [id number] Admin: 04/22/20 08:41 Dose: Not Given Documented by: [id number] Admin: 04/21/20 08:57 Dose: Not Given Documented by: [id number] Lorazepam (Ativan) 1 mg in 2 mls @ 2 mls/min IV Q4H PRN PRN Reason: Agitation Stop: 05/21/20 00:34 Last Admin: 04/21/20 00:44 Dose: 2 mls/min Documented by: [id number] Ceftriaxone Sodium 2,000 mg/ (Dextrose) 70 mls @ 100 mls/hr IV DAILY@2100 [facility]; Protocol Stop: 04/27/20 20:59 Last Infusion: 04/22/20 22:50 Dose: 0 mls/hr Documented by: [id number] Admin: 04/22/20 21:30 Dose: 100 mls/hr Documented by: [id number] Dextrose (D5w) 1,000 mls @ 80 mls/hr IV .[id number] WILLIAM Stop: 05/23/20 08:44 Last Admin: 04/23/20 08:54 Dose: 80 mls/hr Documented by: [id number] Insulin Aspart (Novolog Flexpen) 0 units SC Q6 WILLIAM Stop: 05/22/20 01:14 Last Admin: 04/23/20 11:59 Dose: Not Given Documented by: [id number] Cosigned by: [id number] Admin: 04/23/20 06:05 Dose: Not Given Documented by: [id number] Cosigned by: [id number] Admin: 04/23/20 00:00 Dose: Not Given Documented by: [id number] Cosigned by: [id number] Admin: 04/22/20 18:49 Dose: Not Given Documented by: [id number] Cosigned by: [id number] Admin: 04/22/20 12:15 Dose: 1 units Documented by: [id number] Cosigned by: [id number] Admin: 04/22/20 06:41 Dose: Not Given Documented by: [id number] Cosigned by: [id number] Resident Activity Tracking Resident Involvement: Resident Care Provided Care Provided: Adult Hospital Medicine (1) Anemia Anemia type: bone marrow failure Bone marrow failure anemia type: pancytopenia, other drug-induced Qualified Code(s): D61.811 - Other drug- induced pancytopenia (2) Sepsis Sepsis acute organ dysfunction status: unspecified Sepsis type: sepsis due to unspecified organism Qualified Code(s): A41.9 - Sepsis, unspecified organism
[2020-04-23] MEDS: LACTATED RINGER'S 1,000 ML IV SCH (15:45)
--- NOTE | 2020-04-23 15:46 | Billing Data ---
Date of Service April 23, 2020 Coding Level of Care Code 45005 Subseq Hosp Care Lvl 3
[2020-04-23] MEDS ORDERED: Nursing to Pharmacy Communication SCH (20:45)
[2020-04-23] MEDS: cefTRIAXone SODIUM 2,000 MG in DEXTROSE 5% 50 ML IV SCH (21:07)
[2020-04-24 00:36] LABS: Hematocrit (blood only) 21.6 % (37-47); Hemoglobin 7.4 g/dL (12.0-16.0)
[2020-04-24] MEDS: LACTATED RINGER'S 1,000 ML IV SCH ×3 (02:00→16:50)
[2020-04-24 02:35] LABS: Mean Corpuscular Hgb Conc 33.2 g/dL (32-36)
[2020-04-24 02:40] LABS: Nucleated RBC # (auto) 0.15 K/uL (0-0); Nucleated RBC % (auto) 17.3 %; Platelet Count 22 K/uL (130-400)
[2020-04-24 02:41] LABS: Hematocrit (blood only) 22.6 % (37-47); Hemoglobin 7.5 g/dL (12.0-16.0); Mean Corpuscular Hemoglobin 26.7 pg (25-34); Mean Corpuscular Volume 80.4 fL (80-100); RDW Coefficient of Variation 17.6 % (11.5-14.5); RDW Standard Deviation 51.7 fL (36.4-46.3); Red Blood Count 2.81 M/uL (4.2-5.4); White Blood Count 0.89 K/uL (4.8-10.8)
[2020-04-24 02:42] LABS: Calcium 7.6 mg/dl (8.5-10.1); Creatinine Clr Calc Pharmacy 21.1 ml/min; Est GFR (African American) 36.9; Est GFR (Non-African American) 31.8; Phosphorus 2.2 mg/dl (2.5-4.9); Potassium 3.8 mmol/L (3.5-5.1)
[2020-04-24 04:13] LABS: ALC (manual) 0.62 K/uL (1.2-3.4); ANC (manual) 0.09 K/uL (1.4-6.5); Basophils # (manual) 0.02 K/uL (0-0.2); Blast # (manual) 0.02 K/uL (0-0); Giant Platelets 1+; Hypogranular Neutrophils 1+; Lymphocytes # (manual) 0.62 K/uL (1.2-3.4); Monocytes # (manual) 0.09 K/uL (0.11-0.59); Myelocytes # (manual) 0.02 K/uL (0-0); Neutrophils # (manual) 0.09 K/uL (1.4-6.5); Promyelocytes # (manual) 0.04 K/uL (0-0); Schistocytes Occasional
--- NOTE | 2020-04-24 07:11 | Hospitalist Progress Note ---
Date of Service April 24, 2020 Assessment & Plan (1) Fever and neutropenia: Mrs. Holloway is an 89 yo woman with a PMHx of lymphoma and leukemia, currently undergoing chemotherapy who was admitted 04/21/20 septic with neutropenic fever. She is currently hemodynamically stable. The source of her infection appears to be urinary tract infection with e.coli, on IV ceftriaxone. Patient with episode of hematochezia overnight, started on IV protonix and made NPO. On further assessment, GI bleed more likely derived from a lower tract etiology. Anticipate cell counts to rise as we are past deidra from most recent chemo, infection is being treated and GI bleed is resolving. - WBC 1.14, ANC at 0.5 on admission. WBC waxing/waning 0.89, ANC 0.15 today - No recent fevers, no documentation of fevers, was sent by [facility] for fever. - source of infection appears to be urinary tract which grew E. coli with sensitive to Ceftriaxone; treating with IV ceftriaxone - continue LR at 125mls/hr Dispo: transferred today from tele to med/surg Diet: regular, soft texture, was refusing food today DVT ppx: contraindicated due to thrombocytopenia, possible GI bleed and was requiring blood transfusions here Code: DNR/DNI (2) Tachypnea: Visibly tachypneic while awake pm 04/23, Today appears without tachypnea while eating breakfast this morning. Considered respiratory compensation for metabolic infection but without elevated AG unsure of etiology. She appears mildly tachypneic at rest which appears to worsen when awake. On antibiotic and lungs are moving good air without complaint to me this morning but does not shortness of breath on team rounds without pain. O2 sat 97% on RA. No elevated AG. Perhaps could be psychogenic response. CO2 level of 15 slightly improved today ABG was ordered but patient refused. Suspected Non-gap Acidosis with respiratory compensation - see below (elevated uric acid) suspicion for Tumor Lysis Syndrome (3) Elevated uric acid in blood: Suspicion for Tumor Lysis Syndrome spontaneous as no hx of receiving chemotherapy. We ordered LDH, Uric Acid, Phosphorus level and increased fluids to Lr @ 125mL/hr. - LDH elevated at 2997 - Phos not elevated at 2.2 - Calcium = 7.6 (not corrected) - Uric Acid 9.0 elevated. Would suspect elevated phos, but unsure how long this might have been going on and perhaps PTH compensated phosphate wasting...? - Started on allopurinol 300mg PO BID (4) Sepsis: - SIRS criteria met on admission - afebrile, hemodynamically stable - source is UTI as above; treating with IV ceftriazone (5) Anemia: - Hemoglobin 5.7 on admission. patient received 2 units and value improved to 8.6. - prior episode of hematochezia overnight, Hgb at 6.7 on 04/22. additional unit of irradiated pRBCs ordered - Thus far has received a total of 3 units pRBC, Hgb stabilized over the weekend - bone marrow suppression from recent chemo likely causing decreased RBC production - etiology is therefore likely due to production (from chemo) and loss (GI bleed) - continue to monitor CBC - transfuse if Hgb < 7 - blood product consent signed and in chart (consent provided by patient's POA) (6) Hematochezia: - No reported bloody BMs over weekend - patient without upper GI symptoms (nausea/vomiting, epigastric pain) - suspect secondary to a lower GI bleed (diverticular or AVM) rather than upper etiology - d/c'd prior protonix - while colonoscopy would shed light on exact cause, it is unclear if a procedure is safe with ongoing pancytopenia, and even if it were, an intervention would almost certainly cause additional blood loss and worsen her current anemia. There is a small chance a malignancy could be identified and resected at a later date (when acute anemia resolves), but considering patient's overall frailty, probability of tolerated a hemicolectomy seems low, and current chemotherapy regimen is proving nearly all she can phsyiology stand - monitor CBC and transfuse as needed (7) Thrombocytopenia: - Platelets at 15k on 04/21, improved to 37K after 1 unit transfusion - This AM 22k without signs of bleeding - monitor CBC in am (8) CKD (chronic kidney disease), stage IV: appears at baseline (9) Agitation: - lorazepam prn - Mittens okay if pulling at IV (10) PAF (paroxysmal atrial fibrillation): - currently not on anticoagulation or rate control agent - in sinus rhythm on exam (11) UTI (urinary tract infection): - urine culture growing e.coli sensitive to ceftriaxone - previously deescalated abx from cefepime to ceftriaxone - per pharmacy, when patient is d/c, recommend renally dosing of cefdinir, 300mg, once daily (12) Elevated troponin I level: - Troponin increased to 0.07. - Likely secondary to demand ischemia in high-output state - will not trend any further, as increase would not prompt any intervention. If patient were to go to photo lab specialist for stent placement, she would likely not tolerate dual-antiplatelet therapy in post-operative course due to ongoing pancytopenia and current lower GI bleed. Even if managed medically, heparin drip would be contraindicated in setting of acute lower GI bleed and thrombocytopenia. (13) Hypernatremia: Na 149, improved to 146 today C/w fluids as above trend Admission and Anticipated Discharge Date Admission Date: April 20, 2020 Supervising Physician Co-Signing Physician Notes I personally examined the patient and verified all qureshi points of history and exam, discussed case, and agree with decision making with Dr Marvin. sleeping comfortably - awakens to say that she hurts all over but can't really specify further vitals noted nad heent nc at mmm breathing unlabored no accessory muscles good effort skin no rashes no erythema no pallor or icterus neuro no focal deficits at rest neutropenic sepsis - most likely from urinary source - rocephin --> transition to PO hyperchloremic metabolic acidosis - likely relates to tumor lysis, but clinically and lab-maurer appears to have stabilized for now. IV hydration pancytopenia - after discussions w heme/onc (first PA-C then DO) - pt has NOT been on treatment - pancytopenia is resultant from her leukemia not from treatment, making prognosis even more worrisome. thus far has needed 3 units PRBC, 1 unit platelets. counts fairly stable today GI bleeding - likely related to thrombocytopenia unmasking occult GI source. no s/s c/w UGI - suspect AVM or diverticular most likely, vs malignant less likely but possible. either way would not be safe for scope w current status, unclear if further evaluation would be of any benefit to her well being either. fortunately this appears to have stopped for now otherwise as above Subjective Caveat: History Limited by Dementia. Bibiana appears much improved today. She is sitting up in bed eating breakfast, pouring chocolate milk into her coffee and also dunking her toast with jelly into her coffee. She is smiling and appears pleasant. She vocalizes no concerns or acute complaints. Denies chest pain, abdominal pain, nausea. Overnight report was that Bibiana required Non-violent restraint mittens as she was trying to pull out IV site. Does not appear visibly tachypneic this morning. On afternoon rounds, was sleeping again, noted diffuse muscle aches. Physical Exam Constitutional: + thin, cooperative and comfortable; no acute distress smiling, much improved alertness, eating breakfast Eyes: PERRL, conjunctivae normal, anicteric sclerae Neck: normal visual inspection and trachea midline Respiratory: not tachypneic Auscultation: lungs clear to auscultation bilaterally; no crackles, no rales and no wheezes Cardiovascular: Rate/Rhythm: regular rate and regular rhythm Extremities: no pedal edema Gastrointestinal (Abdomen): Percussion/Palpation: abdomen soft; abdomen nontender, no guarding and abdomen not rigid Musculoskeletal: Head/Neck/Chest: normocephalic and head atraumatic Neurologic: moves all extremities and awake Psychiatric: Orientation: alert Eye Contact: good eye contact Affect: euthymic affect Results & Data Results & [facility] ([facility]) Vital Signs (Past 12 Hours) Vital Signs Temp Pulse Resp BP Pulse Ox 04/23/20 22:00 36.8 C 63 18 153/61 H 98 Laboratory Results Laboratory Results - last 24 hr 04/23/20 04/23/20 04/24/20 11:40 20:15 00:19 WBC RBC Hgb 7.4 L Hct 21.6 L MCV MCH MCHC RDW Std Deviation RDW Coeff of Jacque Plt Count Absolute Nucleated RBC Nucleated RBC % (auto) Neutrophils % (Manual) Lymphocytes % (Manual) Monocytes % (Manual) Basophils % (Manual) Myelocytes % (Man) Promyelocytes % (Man) Blast Cells % (Manual) Neutrophils # (Manual) Total Absolute Neuts Lymphocytes # (Manual) Total Abs Lymphocytes Monocytes # (Manual) Basophils # (Manual) Myelocytes # (Manual) Promyelocytes # (Man) Blast Cells # (Man) Hyposegmented Neuts Hypogranular Neuts Giant Platelets Schistocytes Sodium Potassium Chloride Carbon Dioxide Anion Gap BUN Creatinine Est Cr Clr Drug Dosing Est GFR ( Amer) Est GFR (Non-Af Amer) BUN/Creatinine Ratio Glucose POC Glucose 143 H 148 H Uric Acid Calcium Phosphorus Lactate Dehydrogenase 04/24/20 04/24/20 04/24/20 01:56 01:56 01:56 WBC 0.89 L* RBC 2.81 L Hgb 7.5 L Hct 22.6 L MCV 80.4 MCH 26.7 MCHC 33.2 RDW Std Deviation 51.7 H RDW Coeff of Jacque 17.6 H Plt Count 22 L* Absolute Nucleated RBC 0.15 H Nucleated RBC % (auto) 17.3 Neutrophils % (Manual) 10.0 Lymphocytes % (Manual) 70.0 Monocytes % (Manual) 10.0 Basophils % (Manual) 2.0 Myelocytes % (Man) 2.0 Promyelocytes % (Man) 4.0 Blast Cells % (Manual) 2.0 Neutrophils # (Manual) 0.09 L Total Absolute Neuts 0.09 L* Lymphocytes # (Manual) 0.62 L Total Abs Lymphocytes 0.62 L Monocytes # (Manual) 0.09 L Basophils # (Manual) 0.02 Myelocytes # (Manual) 0.02 H Promyelocytes # (Man) 0.04 H Blast Cells # (Man) 0.02 H Hyposegmented Neuts 1+ Hypogranular Neuts 1+ Giant Platelets 1+ Schistocytes Occasional Sodium 146 H Potassium 3.8 Chloride 120 H Carbon Dioxide 15 L Anion Gap 11.0 BUN 47 H Creatinine 1.46 H Est Cr Clr Drug Dosing 21.1 Est GFR ( Amer) 36.9 Est GFR (Non-Af Amer) 31.8 BUN/Creatinine Ratio 32.0 H Glucose 113 H POC Glucose Uric Acid 9.0 H Calcium 7.6 L Phosphorus 2.2 L Lactate Dehydrogenase 2997 H 04/24/20 07:47 WBC RBC Hgb Hct MCV MCH MCHC RDW Std Deviation RDW Coeff of Jacque Plt Count Absolute Nucleated RBC Nucleated RBC % (auto) Neutrophils % (Manual) Lymphocytes % (Manual) Monocytes % (Manual) Basophils % (Manual) Myelocytes % (Man) Promyelocytes % (Man) Blast Cells % (Manual) Neutrophils # (Manual) Total Absolute Neuts Lymphocytes # (Manual) Total Abs Lymphocytes Monocytes # (Manual) Basophils # (Manual) Myelocytes # (Manual) Promyelocytes # (Man) Blast Cells # (Man) Hyposegmented Neuts Hypogranular Neuts Giant Platelets Schistocytes Sodium Potassium Chloride Carbon Dioxide Anion Gap BUN Creatinine Est Cr Clr Drug Dosing Est GFR ( Amer) Est GFR (Non-Af Amer) BUN/Creatinine Ratio Glucose POC Glucose 131 H Uric Acid Calcium Phosphorus Lactate Dehydrogenase Medications Administered Acetaminophen (Tylenol) 650 mg PO TID [facility] Stop: 05/21/20 08:59 Last Admin: 04/24/20 08:17 Dose: 650 mg Documented by: [id number] Admin: 04/23/20 22:03 Dose: 650 mg Documented by: [id number] Admin: 04/23/20 13:39 Dose: Not Given Documented by: [id number] Admin: 04/23/20 09:44 Dose: Not Given Documented by: [id number] Admin: 04/22/20 21:34 Dose: Not Given Documented by: [id number] Admin: 04/22/20 13:28 Dose: 650 mg Documented by: [id number] Admin: 04/22/20 08:41 Dose: Not Given Documented by: [id number] Admin: 04/21/20 21:18 Dose: 650 mg Documented by: [id number] Admin: 04/21/20 14:38 Dose: Not Given Documented by: [id number] Admin: 04/21/20 08:57 Dose: Not Given Documented by: [id number] Folic Acid (Folvite) 1 mg PO DAILY WILLIAM Stop: 05/21/20 08:59 Last Admin: 04/24/20 08:17 Dose: 1 mg Documented by: [id number] Admin: 04/23/20 09:44 Dose: Not Given Documented by: [id number] Admin: 04/22/20 08:41 Dose: Not Given Documented by: [id number] Admin: 04/21/20 08:57 Dose: Not Given Documented by: [id number] Lorazepam (Ativan) 1 mg in 2 mls @ 2 mls/min IV Q4H PRN PRN Reason: Agitation Stop: 05/21/20 00:34 Last Admin: 04/21/20 00:44 Dose: 2 mls/min Documented by: [id number] Ceftriaxone Sodium 2,000 mg/ (Dextrose) 70 mls @ 100 mls/hr IV DAILY@2100 WILLIAM; Protocol Stop: 04/27/20 20:59 Last Infusion: 04/23/20 22:09 Dose: 0 mls/hr Documented by: [id number] Admin: 04/23/20 21:07 Dose: 100 mls/hr Documented by: [id number] Infusion: 04/22/20 22:50 Dose: 0 mls/hr Documented by: [id number] Admin: 04/22/20 21:30 Dose: 100 mls/hr Documented by: [id number] Lactated Ringer's (Lr) 1,000 mls @ 125 mls/hr IV .Q8H [facility] Stop: 05/23/20 15:39 Last Admin: 04/24/20 02:00 Dose: 125 mls/hr Documented by: [id number] Infusion: 04/23/20 23:45 Dose: 125 mls/hr Documented by: [id number] Admin: 04/23/20 15:45 Dose: 125 mls/hr Documented by: [id number] Insulin Aspart (Novolog Flexpen) 0 units SC ACHS WILLIAM Stop: 05/23/20 20:59 Last Admin: 04/24/20 08:16 Dose: 3 units Documented by: [id number] Cosigned by: [id number] Admin: 04/23/20 22:07 Dose: Not Given Documented by: [id number] Cosigned by: [id number] Resident Activity Tracking Resident Involvement: Resident Care Provided Care Provided: Adult Hospital Medicine (1) Anemia Anemia type: bone marrow failure Bone marrow failure anemia type: pancytopenia, other drug-induced Qualified Code(s): D61.811 - Other drug- induced pancytopenia (2) Sepsis Sepsis acute organ dysfunction status: unspecified Sepsis type: sepsis due to unspecified organism Qualified Code(s): A41.9 - Sepsis, unspecified organism
[2020-04-24] MEDS: INSULIN ASPART 100 UNITS/ML 3 ML PEN SC SCH ×4 (08:16→21:49)
[2020-04-24] MEDS: ACETAMINOPHEN 325 MG TAB PO SCH ×3 (08:17→22:20)
[2020-04-24] MEDS: FOLIC ACID 1 MG TAB PO SCH (08:17)
[2020-04-24] MEDS: allopurinoL 300 MG TAB PO SCH ×2 (09:44→22:20)
--- NOTE | 2020-04-24 16:30 | Billing Data ---
Date of Service April 24, 2020 Coding Level of Care Code 77050 Subseq Hosp Care Lvl 3
[2020-04-24] MEDS: CEFDINIR 300 MG CAP PO SCH (17:38)
[2020-04-25 07:24] LABS: Mean Corpuscular Hgb Conc 33.7 g/dL (32-36); Nucleated RBC # (auto) 0.08 K/uL (0-0); Nucleated RBC % (auto) 11.5 %; Platelet Count 14 K/uL (130-400)
[2020-04-25 07:25] LABS: Hematocrit (blood only) 19.9 % (37-47); Hemoglobin 6.7 g/dL (12.0-16.0); Mean Corpuscular Hemoglobin 26.9 pg (25-34); Mean Corpuscular Volume 79.9 fL (80-100); Platelet Estimate SIGNIFIC DECREASED (Normal); RDW Coefficient of Variation 17.4 % (11.5-14.5); Red Blood Count 2.49 M/uL (4.2-5.4)
[2020-04-25 07:33] LABS: Creatinine Clr Calc Pharmacy 23.3 ml/min; Est GFR (African American) 41.6; Est GFR (Non-African American) 35.9; Potassium 3.7 mmol/L (3.5-5.1)
[2020-04-25 07:34] LABS: Phosphorus 2.7 mg/dl (2.5-4.9)
[2020-04-25] MEDS ORDERED: SODIUM CHLORIDE 0.9% 250 ML IV PRN ×3 (07:46→11:08)
[2020-04-25] MEDS: allopurinoL 300 MG TAB PO SCH ×2 (08:07→20:35)
[2020-04-25] MEDS: ACETAMINOPHEN 325 MG TAB PO SCH ×3 (08:08→20:36)
[2020-04-25] MEDS: FOLIC ACID 1 MG TAB PO SCH (08:08)
[2020-04-25] MEDS: CEFDINIR 300 MG CAP PO SCH (08:08)
[2020-04-25] MEDS: INSULIN ASPART 100 UNITS/ML 3 ML PEN SC SCH ×4 (08:10→21:03)
--- NOTE | 2020-04-25 12:13 | Hospitalist Progress Note ---
Date of Service April 25, 2020 Assessment & Plan (1) Fever and neutropenia: Mrs. Holloway is an 89 yo woman with a PMHx of lymphoma and leukemia (upon clarification with oncology, not undergoing treatment) who was admitted 04/21/20 septic with neutropenic fever. She is currently hemodynamically stable. The source of her infection appears to be urinary tract infection with e.coli, on cefdinir. Oncology formally consulted, recommending no treatment for current blood malignancies. Cell counts continue to decrease - we will transfuse 2 units of pRBCs and 1 unit of platelets. Patient reports that after today, she wants no additional transfusions. Palliative care consulted: patient and POA Sukumar will discuss goals of care today. If patient desires not to escalate care further, she will be d/c back to [facility] with hospice services. - WBC 0.07, ANC 0.09 - No fevers since arrival - source of infection appears to be urinary tract which grew E. coli sensitive to Ceftriaxone (resistant to bactrim); transitioned to PO renally-dosed cefdinir - IV fluids discontinued (patient pulled out peripheral IV) (2) Sepsis: - SIRS criteria met on admission - afebrile, hemodynamically stable - source is UTI as above; treating with cefdinir (there is resistance to bactrim) (3) Anemia: - Hemoglobin 5.7 on admission. patient received 2 units and value improved to 8.6. - prior episode of hematochezia overnight, Hgb at 6.7 on 04/22. additional unit of irradiated pRBCs ordered - Hgb stabilized over the weekend, however returned at 6.7 today. 2 additional units of pRBCs ordered - bone marrow suppression from underlying malignancy likely causing decreased RBC production - etiology is therefore likely due to production (from chemo) and loss (GI bleed) - continue to monitor CBC - blood product consent signed and in chart (consent provided by patient's POA) - patient reports she does not want any further blood transfusion (see palliative care note) (4) Hematochezia: - 1 episode occurred early in hospital stay - No reported bloody BMs over weekend - patient without upper GI symptoms (nausea/vomiting, epigastric pain) - suspect secondary to a lower GI bleed (diverticular or AVM) rather than upper etiology - d/c'd prior protonix - while colonoscopy would shed light on exact cause, it is unclear if a procedure is safe with ongoing pancytopenia, and even if it were, an intervention would almost certainly cause additional blood loss and worsen her current anemia. There is a small chance a malignancy could be identified and resected at a later date (when acute anemia resolves), but considering patient's overall frailty, probability of tolerated a hemicolectomy seems low, and current chemotherapy regimen is proving nearly all she can physiology stand - monitor CBC, although patient does not want additional transfusions (5) Thrombocytopenia: - Platelets at 15k on 04/21, improved to 37K after 1 unit transfusion - This AM 14k, signs of nosebleed on exam; 1 additonal unit ordered for transfusion - monitor CBC in am (6) UTI (urinary tract infection): - urine culture growing e.coli sensitive to ceftriaxone (resistant to Bactrim) - previously deescalated abx from cefepime to ceftriaxone, now on renally dosed of cefdinir, 300mg, once daily - currently on day 5 of antibiotics (7) Tachypnea: - resolved. - Normal RR today (8) Elevated uric acid in blood: - uric acid level 9 - initially thought to be a sequelae of tumor lysis syndrome, however, upon clarification that patient has not undergone chemotherapy, this seems to be an unlikely occurrence - no known history of gout - Started on allopurinol 300mg PO BID (9) CKD (chronic kidney disease), stage IV: - appears at baseline (10) Agitation: - lorazepam prn - IV still necessary for blood transfusions, mittens okay if she pulls on them (11) PAF (paroxysmal atrial fibrillation): - currently not on anticoagulation or rate control agent - in sinus rhythm on exam (12) Hypernatremia: - Na 149 on admission, improved to 144 today - IVF d/c as patient was pulling out IV. Tolerating PO intake well (13) Elevated troponin I level: - Troponin increased to 0.07. - Likely secondary to demand ischemia in high-output state - will not trend any further, as increase would not prompt any intervention. If patient were to go to lab associate for stent placement, she would likely not tolerate dual-antiplatelet therapy in post-operative course due to ongoing pancytopenia and current lower GI bleed. Even if managed medically, heparin drip would be contraindicated in setting of acute lower GI bleed and th rombocytopenia. Dispo: med/surg Diet: regular, soft texture, was refusing food today DVT ppx: contraindicated due to thrombocytopenia, possible GI bleed and was requiring blood transfusions here Code: DNR/DNI Admission and Anticipated Discharge Date Admission Date: April 20, 2020 Supervising Physician Co-Signing Physician Notes Attending attestation Pt seen and examined in concert with Dr. Espinoza. In agreement with the documented findings as noted in the resident documentation with any exceptions or additions as noted here. At bedside, patient appears fatigued but otherwise well and states that she would prefer not to have any more 'sticks and pokes' and that 'God has given her all that she needs'. After brief discussion at bedside, she is agreeable to a single final transfusion to decrease her acuity enough to establish informed decisionmaking, but refuses further transfusions. On examination, S1/S2 nl RRR no MCG. CTAB. Abd NT/ND BS+ve. Active left sided epistaxis. Pancytopenia w/ CLL - difficulty with keeping up with blood loss w/ low platelets, and pt declining further transfusion after 3 PRBC and 1 PLT. Oncology agrees w/ little left to add to control underlying dz. Palliative consultation appreciated and is open to hospice care. Neutropenic sepsis - likely urinary source - tolerating cefdinir PO Hyperchloremic metabolic acidosis - stable with IV hydration. Likely not tumor lysis 2/2 no chemotherapy actively. GI bleed - no overt melena/hematochezia reported. not safe for scope, continued downtrending hgb, considering hospice presently as above Else see resident documentation as noted. Subjective No acute events overnight. Reports she is unhappy that people are "picking on her" here. She says she does not want any further blood transfusions after todays. Review of Systems Review of Systems: + forearm pain Physical Exam Constitutional: + frail appearing; no acute distress Eyes: PERRL, conjunctivae normal, anicteric sclerae ENMT: external ear and nose normal, oropharynx normal Nose: + epistaxis Mouth: no oral mucosal abnormality Neck: normal visual inspection and trachea midline Respiratory: normal respiratory effort, lungs clear to auscultation Auscultation: no crackles Cardiovascular: Rate/Rhythm: regular rate and regular rhythm Heart Sounds: normal S1, normal S2 and + murmur (systolic ejection murmur) Gastrointestinal (Abdomen): normal bowel sounds, soft, nontender, no hepatosplenomegaly Skin: no rashes, warm and dry + ecchymosis (bilateral forearms) Psychiatric: Orientation: oriented to person and oriented to time (year, not month, did not know curren tpresident); + not oriented to place (thought she was in [facility]) Results & Data Results & Data ([facility]) Vital Signs (Past 12 Hours) Vital Signs Temp Pulse Pulse Resp BP BP Pulse Ox 04/25/20 11:27 37.2 C 68 18 125/65 92 04/25/20 11:13 37.1 C 75 18 127/60 96 04/25/20 07:17 36.8 C 63 18 156/64 H 97 Resident Activity Tracking Resident Involvement: Resident Care Provided Care Provided: Adult Hospital Medicine (1) Anemia Anemia type: bone marrow failure Bone marrow failure anemia type: pancytopenia, other drug-induced Qualified Code(s): D61.811 - Other drug- induced pancytopenia (2) Sepsis Sepsis acute organ dysfunction status: unspecified Sepsis type: sepsis due to unspecified organism Qualified Code(s): A41.9 - Sepsis, unspecified organism
--- NOTE | 2020-04-25 13:27 | Palliative Care Consultation ---
Date of Consultation April 25, 2020 Assessment & Plan (1) Goals of care, counseling/discussion: Patient is an 89-year-old female, resident at the [facility] for approximately 14 years who was sent to [facility] on 04/20 after a large amount of melena, temp 100.8, and increased respiratory rate. Patient was admitted due to fevers and pancytopenia. Past medical history is significant for CKD stage IV, diabetes, hypertension, GERD, lymphoid leukemia with pancytopenia, paroxysmal A. fib. Patient was started on IV antibiotics-was transitioned to oral cefdinir for an E. coli UTI, blood cultures negative. Patient has required multiple transfusions-remains pancytopenic, hemoglobin was 5.7 on admission -hemoglobin this a.m. 6.7-patient has received several units of red blood cells, hemoglobin 5.7-8.6-has decreased again within a few days, hemoglobin this morning was 6.7 - - patient receiving blood transfusion currently. On admissions platelets were 18K, she was transfused platelets-they bumped to 40K, dropped to 22 K within 24 hours and they are 14K on labs drawn this a.m. -Patient seen and examined in room 289, no friends or family at bedside. -Current CODE STATUS is DNR/DNI, discuss goals of care, patient would like to forego any further transfusions-but was not able to tell me what would happen if she stopped them. Patient does have some cognitive deficits-was able to give the year correctly, she gave December as the month and [place] as the president. Patient was able to give me her POA's phone number-she sometimes refers to him as a friend, she stated to me as her . Patient stated she has 2 sons and 4 daughters-she has not had contact with them for quite some time. Patient reports she is been at the [facility] for approximately 14 years. -Spoke with patient's POA, Sukumar Sanchez, . He also referred to himself as her , could not tell me how many years they were , could not tell me how many years she is been at the [facility]. He did verify that her children have very little if any contact with her. Discussed with her POA her stated wishes of no further transfusions and that this would ultimately lead to her demise-he states he will try to contact her by phone and speak with her-I will touch base with him again tomorrow afternoon after he has a chance to speak with the patient and determine her understanding of her decision of no further transfusions. -With patient's current status and continued bleeding-further transfusions of blood or platelets are no longer beneficial. Would support patient's decision for no further transfusions if her POA agrees. -Persistent GI bleeding-most likely due to thrombocytopenia -CKD stage IV-creatinine 2.01 on admission-now back at her prior baseline at 1.32 -paroxysmal A. fib -regular rate on exam -PPS 40% (2) Lymphoid leukemia: Pancytopenia-resistant to repeated transfusions (3) Pancytopenia: (4) GI bleed: GI bleed type/associated pathology: melena Qualified Code(s): K92.1 - Melena (5) CKD (chronic kidney disease), stage IV: Improved-patient back to her prior baseline with a creatinine of 1.32 History of Present Illness Reason for Consultation: Address goals of care and cognitive status to make medical decisions Requesting Physician: Dr Tri Espinoza Attending Physician: Bradly Dc MD History of Present Illness Patient is an 89-year-old female, resident at the [facility] for approximately 14 years who was sent to [facility] on 04/20 after a large amount of melena, temp 100.8, and increased respiratory rate. Patient was admitted due to fevers and pancytopenia. Past medical history is significant for CKD stage IV, diabetes, hypertension, GERD, lymphoid leukemia with pancytopenia, paroxysmal A. fib. Patient was started on IV antibiotics-was transitioned to oral cefdinir for an E. coli UTI, blood cultures negative. Patient has required multiple transfusions-remains pancytopenic, hemoglobin was 5.7 on admission -hemoglobin this a.m. 6.7-patient has received several units of red blood cells, hemoglobin 5.7-8.6-has decreased again within a few days, hemoglobin this morning was 6.7 - - patient receiving blood transfusion currently. On admissions platelets were 18K, she was transfused platelets-they bumped to 40K, dropped to 22 K within 24 hours and they are 14K on labs drawn this a.m. -Patient seen and examined in room 289, no friends or family at bedside. -Current CODE STATUS is DNR/DNI, discuss goals of care, patient would like to forego any further transfusions-but was not able to tell me what would happen if she stopped them. Patient does have some cognitive deficits-was able to give the year correctly, she gave December as the month and as the president. Patient was able to give me her POA's phone number-she sometimes refers to him as a friend, she stated to me as her . Patient stated she has 2 sons and 4 daughters-she has not had contact with them for quite some time. Patient reports she is been at the [facility] for approximately 14 years. -Spoke with patient's POA, Sukumar Sanchez, . He also referred to himself as her , could not tell me how many years they were , could not tell me how many years she is been at the [facility]. He did verify that her children have very little if any contact with her. Discussed with her POA her stated wishes of no further transfusions and that this would ultimately lead to her demise-he states he will try to contact her by phone and speak with her-I will touch base with him again tomorrow afternoon after he has a chance to speak with the patient and determine her understanding of her decision of no further transfusions. -With patient's current status and continued bleeding-further transfusions of blood or platelets are no longer beneficial. Would support patient's decision for no further transfusions if her POA agrees. -PPS 40% Allergies Allergy/AdvReac Type Severity Reaction Status Date / Time garlic Allergy Severe "raw Verified 05/08/17 11:58 garlic" airway closes shellfish derived Allergy Severe FISH = Verified 05/08/17 11:58 "HIVES" AND "CANT BREATH" Macrolide Antibiotics Allergy Intermediate ZITHROMAX-H Verified 05/08/17 11:58 GUS amitriptyline Allergy Unknown _ Verified 05/08/17 11:58 aspirin Allergy Unknown UNKNOWN Verified 05/08/17 11:58 Cephalosporins Allergy Unknown UNKNOWN Verified 05/08/17 11:58 Fish Containing Products Allergy Unknown UNKNOWN- Verified 05/08/17 11:58 "SEAFOOD" omega-3 acid ethyl esters Allergy Unknown hives Verified 05/08/17 11:58 Penicillins Allergy Unknown UNKNOWN Verified 05/08/17 11:58 red dye Allergy Unknown Unknown rxn Verified 05/08/17 11:58 NSAIDS (Non-Steroidal AdvReac Severe NO NSAIDS Verified 05/08/17 11:58 Anti-Inflamma PER DARRIAN WISE 12/27/11 metoclopramide AdvReac Intermediate PARKINSON'S Verified 05/08/17 11:58 RIGIDITY AND LIP TREMOR erythromycin base AdvReac Unknown HEADACHE,NA Verified 05/08/17 11:58 USEA Tricyclic Antidepressants Allergy Unknown _ Uncoded 05/08/17 11:58 Home Medications Home Medications Medication Instructions Recorded Confirmed Type acetaminophen 650 mg PO TID 04/20/20 04/20/20 History cranberry 450 mg PO DAILY 04/20/20 04/20/20 History folic acid 1 mg PO DAILY 04/20/20 04/20/20 History lisinopril 20 mg PO DAILY 04/20/20 04/20/20 History lisinopril 20 mg PO DAILY 04/20/20 04/20/20 History menthol [Bengay Ultra 1 patch TOPICAL DAILY 04/20/20 04/20/20 History Strength(menthol)] Patient History Social History Smoking Status: Unknown if ever smoked Preferred Language: Latvian Communication Ability: Effective Wwe Wrestler Required: No Beliefs That Will Affect Care: None Current Living Situation: Shelter Feels Safe at Home: Yes Review of Systems Review of Systems: Patient denies fever, chills, chest pain, shortness of breath, or abdominal pain. Positive for bruising, nosebleed Physical Exam Physical Exam: PE: Patient awake and alert, no acute distress HEENT: EOMI, hearing within normal limits, positive bleeding from the nose currently-able to be contained with tissues Respirations: Clear breath sounds, unlabored CV: Regular rate, no edema Abdomen: Soft, nontender to palpation Extremities: Multiple areas of large bruising/ecchymosis upper extremities Neuro: Patient alert, oriented to person place and year, positive cognitive deficits and poor insight. Results & Data Vital Signs (Past 12 Hours) Vital Signs Temp Pulse Pulse Resp BP BP Pulse Ox 04/25/20 11:27 99.0 F 68 18 125/65 92 04/25/20 11:13 98.8 F 75 18 127/60 96 04/25/20 07:17 98.2 F 63 18 156/64 H 97 PG Care Time/CCT Total # of Minutes Spent Total Time Spent with Patient: Total time spent 70 minutes with greater than 50% of the time at bedside assessing patient's current cognitive status and ability to make her own medical decisions, as well as speaking with her POA and attending physician. Coding Level of Care Code 71792 Inpt Consult Level 3 Diagnoses Goals of care, counseling/discussion Z71.89 Lymphoid leukemia C91.90 Pancytopenia D61.818 GI bleed K92.1 GI bleed type/associated pathology: melena CKD (chronic kidney disease), stage IV N18.4 Time Spent (min) 70
[2020-04-26] MEDS: allopurinoL 300 MG TAB PO SCH ×2 (08:03→21:16)
[2020-04-26] MEDS: CEFDINIR 300 MG CAP PO SCH (08:03)
[2020-04-26] MEDS: ACETAMINOPHEN 325 MG TAB PO SCH ×3 (08:03→21:16)
[2020-04-26] MEDS: FOLIC ACID 1 MG TAB PO SCH (08:03)
[2020-04-26] MEDS: INSULIN ASPART 100 UNITS/ML 3 ML PEN SC SCH ×4 (08:04→22:07)
[2020-04-26 10:38] LABS: Hemoglobin 8.4 g/dL (12.0-16.0); Mean Corpuscular Hemoglobin 27.6 pg (25-34); Mean Corpuscular Volume 78.9 fL (80-100); Nucleated RBC # (auto) 0.11 K/uL (0-0); Nucleated RBC % (auto) 14.8 %; Platelet Count 37 K/uL (130-400); RDW Coefficient of Variation 16.8 % (11.5-14.5); RDW Standard Deviation 48.4 fL (36.4-46.3); Red Blood Count 3.04 M/uL (4.2-5.4); White Blood Count 0.76 K/uL (4.8-10.8)
[2020-04-26 10:43] LABS: BUN Creatinine Ratio 23.3 (10-20); Creatinine Clr Calc Pharmacy 25.4 ml/min; Est GFR (African American) 46.3; Est GFR (Non-African American) 39.9; Potassium 3.6 mmol/L (3.5-5.1)
[2020-04-26 11:16] LABS: ALC (manual) 0.18 K/uL (1.2-3.4); ANC (manual) 0.21 K/uL (1.4-6.5); Lymphocytes # (manual) 0.18 K/uL (1.2-3.4); Lymphocytes % (manual) 24.2 %; Metamyelocytes # (manual) 0.16 K/uL (0-0); Metamyelocytes % (manual) 21.2 %; Myelocytes # (manual) 0.21 K/uL (0-0); Myelocytes % (manual) 27.3 %; Neutrophils # (manual) 0.21 K/uL (1.4-6.5); Neutrophils % (manual) 27.3 %
--- NOTE | 2020-04-26 13:09 | Consultation Report ---
DATE OF CONSULTATION: 04/26/2020 HEMATOLOGY CONSULTATION REASON FOR CONSULTATION: Pancytopenia, etiology unclear. HISTORY OF PRESENT ILLNESS: Bibiana is a very delightful, yet demented 89-year-old female admitted from [facility] to [facility] with neutropenic fever on 04/20. The patient's mental status is tenuous at best. Upon questioning, Bibiana tended to ramble on about other issues, not particularly about her overall health and current situation. She seems to somewhat grasp that she has a hematologic issue and has required transfusional support. Apparently did receive blood products initially, but now is refusing further transfusion. My physician j2ee application developer, Ebonie Robleor was well aware of Bibiana and discussed her coming to hospital. Apparently, she has a medical power of attorney at law that the hospitalist had been conversing with. Clearly, she suffers from severe pancytopenia with evidence for either high-grade myelodysplasia or perhaps acute leukemia. Physically, she has several scattered ecchymoses, but otherwise is awake and alert. She is not oriented and again I could not really extract pertinent information from her. Thus far, patient has been receiving antibiotics for suspected sepsis. She received 2 units of packed RBCs and a single donor plateletpheresis thus far. She is currently suffering from urinary tract infection. I have been asked to render opinion whether diagnosis and definitive treatment should be offered. PAST MEDICAL HISTORY: Includes active gastrointestinal bleeding, paroxysmal atrial fibrillation, chronic kidney disease, bilateral lower extremity edema, atypical chest pain, urinary incontinence, pancytopenia. MEDICATIONS PRIOR TO ADMISSION: Lisinopril 20 mg p.o. daily, folic acid 1 mg p.o. daily, cranberry 450 mg p.o. daily, acetaminophen 650 mg p.o. t.i.d. ALLERGIES: SHE HAS A MULTITUDE OF ALLERGIES, GARLIC, SHELLFISH, MACROLIDE ANTIBIOTICS, AMITRIPTYLINE, ASPIRIN, CEPHALOSPORINS, FISH-CONTAINING PRODUCTS, OMEGA-3 FISH OIL, PENICILLIN, RED DYE, NONSTEROIDAL ANTI-INFLAMMATORIES, METOCLOPRAMIDE, ERYTHROMYCIN AND TRICYCLIC ANTIDEPRESSANTS. SOCIAL HISTORY: The patient currently resides at [facility]. She is a nonsmoker. FAMILY HISTORY: Not obtainable. REVIEW OF SYSTEMS: Unobtainable because of the patient's mental status. PHYSICAL EXAMINATION: GENERAL: Very pleasant demented 89-year-old female, awake and alert, in no acute distress. VITAL SIGNS: Temperature 36.7, pulse 68, respiratory rate 18, blood pressure 185/79. SKIN: Shows multiple scattered ecchymoses, largest being in her left forearm. HEENT: Atraumatic, normocephalic. Eyes: PERRLA, EOMI. Nares patent without rhinorrhea or discharge. Throat is clear. Tongue is midline. No buccal lesions or ulcerations. NECK: Supple. HEART: Regular rate and rhythm. No clicks, rubs or murmurs. LUNGS: Clear to auscultation bilaterally. ABDOMEN: Soft, nontender, nondistended. EXTREMITIES: No clubbing, cyanosis or edema. NEUROLOGIC: Grossly intact. LABORATORY DATA: Her last peripheral blood count from yesterday; 700 white cells, hemoglobin 6.7, platelet count 14,000. White cell differential which was measured on the clearly shows a smattering of neutrophils, lymphocytes, monocytes, metamyelocytes, promyelocytes, and blasts. IMPRESSION: 1. Neutropenic fever. 2. Sepsis. 3. Pancytopenia. 4. Hematochezia. 5. Urinary tract infection. 6. Tumor lysis syndrome. PLAN: At the request of the [facility] hospitalist, I visited with Bibiana this morning at bedside. Again, she is a very delightful lady, but really could not impart any useful information regarding her medical history. According to current medical records, she has a medical power of attorney at law who is currently making decisions on her behalf. 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 Bibiana does not seem to be very interested in pursuing diagnosis nor further blood transfusions. I suspect her survival is probably measured in weeks to maybe a month or so, less if further transfusion is held. Agree with current medical management. The patient had electrolyte anomalies consistent with tumor lysis despite not undergoing treatment. Patients with myeloproliferative diseases can definitely develop tumor lysis because of rapid cell turnover. Would continue allopurinol and electrolyte replacement therapy as necessary. Unless Bibiana wants to pursue diagnosis, I do not feel compelled to continue following her. Certainly can be contacted by phone should Bibiana and her medical POA change their mind regarding a long-term care. Thank you very much for allowing me to participate in her care. If you have any questions or concerns, I can be contacted at any time. ENMANUEL
--- NOTE | 2020-04-26 17:22 | Palliative Care Progress Note ---
Date of Service April 26, 2020 Assessment & Plan (1) Goals of care, counseling/discussion: Patient is an 89-year-old female, resident at the [facility] for approximately 14 years who was sent to [facility] on 04/20 after a large amount of melena, temp 100.8, and increased respiratory rate. Patient was admitted due to fevers and pancytopenia. Past medical history is significant for CKD stage IV, diabetes, hypertension, GERD, lymphoid leukemia with pancytopenia, paroxysmal A. fib. Patient was started on IV antibiotics-was transitioned to oral cefdinir for an E. coli UTI, blood cultures negative. Patient has required multiple transfusions-remains pancytopenic, hemoglobin was 5.7 on admission -hemoglobin this a.m. 6.7-patient has received several units of red blood cells, hemoglobin 5.7-8.6-has decreased again within a few days, hemoglobin this morning was 6.7 - - patient receiving blood transfusion currently. On admissions platelets were 18K, she was transfused platelets-they bumped to 40K, dropped to 22 K within 24 hours and they are 14K on labs drawn this a.m. -Patient seen and examined in room 289, no friends or family at bedside. -Current CODE STATUS is DNR/DNI, discuss goals of care, patient would like to forego any further transfusions-she understands that it would limit her life, restated that she wants no further blood or platelet transfusions. -Spoke with patient's POA, Sukumar Sanchez, . He supports her decision for no further transfusions. Was able to dial the phone in patient's room so they could speak. -With patient's current status and continued bleeding-further transfusions of blood or platelets are no longer beneficial. Would support patient's decision for no further transfusions if her POA agrees. -Epistaxis and GI bleeding-most likely due to thrombocytopenia -CKD stage IV-creatinine 2.01 on admission-now back at her prior baseline at 1 .21 -paroxysmal A. fib -regular rate on exam -PPS 40% (2) Lymphoid leukemia: Pancytopenia-resistant to repeated transfusions (3) Pancytopenia: (4) GI bleed: (5) CKD (chronic kidney disease), stage IV: Improved-patient back to her prior baseline with a creatinine of 1.21 Subjective Patient seen and examined, no family at bedside. Discussed with patient our conversation from yesterday regarding further transfusions of blood and platelets-patient reiterated that she wanted no more transfusions, her goal is comfort. Was able to speak to patient's , Sukumar Sanchez, [phone]. He supports her decision. Patient could return to [facility] under hospice care. Patient's stated he has not been able to speak with patient-was able to get him on the phone in patient's room. Patient voiced understanding of what her decision would mean as far as her life expectancy. Review of Systems Review of Systems: Patient denies fever, chills, chest pain, shortness of breath, or abdominal pain. Positive for bruising and nosebleeds-nosebleeds have improved Physical Exam Physical Exam: Patient awake and alert, no acute distress, no active nosebleed HEENT: No active nosebleed during exam Respirations: Clear breath sounds, unlabored, on room air CV: Regular rate, No edema Abdomen: Soft, nontender Extremities: Upper extremity bruising more extensive than lower Neuro: Alert and oriented, understands her decision to stop transfusions. Results & Data Vital Signs (Past 12 Hours) Vital Signs Temp Pulse Resp BP Pulse Ox 04/26/20 15:06 97.7 F 71 18 162/70 H 97 04/26/20 07:25 98.1 F 68 18 185/79 H 97 PG Care Time/CCT Total # of Minutes Spent Total Time Spent with Patient: Total time spent 35 minutes with greater than 50% of the time at bedside assessing patient's understanding of her decision to forego any further transfusions as well as discussing her decision with her POA by phone. Coding Level of Care Code 57456 Subseq Hosp Care Lvl 3 Diagnoses Goals of care, counseling/discussion Z71.89 Lymphoid leukemia C91.90 Pancytopenia D61.818 GI bleed K92.1 GI bleed type/associated pathology: melena CKD (chronic kidney disease), stage IV N18.4 Time Spent (min) 35 (1) GI bleed GI bleed type/associated pathology: melena Qualified Code(s): K92.1 - Melena
--- NOTE | 2020-04-26 17:25 | Hospitalist Progress Note ---
Date of Service April 26, 2020 Assessment & Plan (1) Fever and neutropenia: Mrs. Holloway is an 89 yo woman with a PMHx of lymphoma and leukemia (upon clarification with oncology, not undergoing treatment) who was admitted 04/21/20 septic with neutropenic fever. She is currently hemodynamically stable. The source of her infection appears to be urinary tract infection with e.coli, on cefdinir. Oncology formally consulted, recommending no treatment for current blood malignancies. Patient received several pRBC and platelet transfusions over hospital stay but denied any further blood products. Palliative care consulted: patient and POA Sukumar have decided they would like her to be sent back to [facility] with hospice services. - WBC 0.07, ANC 0.09 - No fevers since arrival - source of infection appears to be urinary tract which grew E. coli sensitive to Ceftriaxone (resistant to bactrim); transitioned to PO renally-dosed cefdinir - IV fluids discontinued (patient pulled out peripheral IV) (2) Sepsis: - SIRS criteria met on admission - afebrile, hemodynamically stable - source is UTI as above; treating with cefdinir (there is resistance to bactrim) (3) Anemia: - Hemoglobin 5.7 on admission. patient received 2 units and value improved to 8.6. - prior episode of hematochezia overnight, Hgb at 6.7 on 04/22. additional unit of irradiated pRBCs ordered - Hgb stabilized over the weekend, however returned at 6.7 today. 2 additional units of pRBCs ordered - bone marrow suppression from underlying malignancy likely causing decreased RBC production - etiology is therefore likely due to production (from chemo) and loss (GI bleed) - continue to monitor CBC - blood product consent signed and in chart (consent provided by patient's POA) - patient reports she does not want any further blood transfusion (see palliative care note) (4) Hematochezia: - 1 episode occurred early in hospital stay - No reported bloody BMs over weekend - patient without upper GI symptoms (nausea/vomiting, epigastric pain) - suspect secondary to a lower GI bleed (diverticular or AVM) rather than upper etiology - d/c'd prior protonix - while colonoscopy would shed light on exact cause, it is unclear if a procedure is safe with ongoing pancytopenia, and even if it were, an intervention would almost certainly cause additional blood loss and worsen her current anemia. There is a small chance a malignancy could be identified and resected at a later date (when acute anemia resolves), but considering patient's overall frailty, probability of tolerated a hemicolectomy seems low, and current chemotherapy regimen is proving nearly all she can physiology stand - monitor CBC, although patient does not want additional transfusions (5) Thrombocytopenia: - Platelets at 15k on 04/21, improved to 37K after 1 unit transfusion - This AM 14k, signs of nosebleed on exam; 1 additonal unit ordered for transfusion - monitor CBC in am (6) UTI (urinary tract infection): - urine culture growing e.coli sensitive to ceftriaxone (resistant to Bactrim) - previously deescalated abx from cefepime to ceftriaxone, now on renally dosed of cefdinir, 300mg, once daily - currently on day 6 of antibiotics (7) Tachypnea: - resolved. - Normal RR today (8) Elevated uric acid in blood: - uric acid level 9 - initially thought to be a sequelae of tumor lysis syndrome, however, upon clarification that patient has not undergone chemotherapy, this seems to be an unlikely occurrence - no known history of gout - Started on allopurinol 300mg PO BID (9) CKD (chronic kidney disease), stage IV: - appears at baseline (10) Agitation: - lorazepam prn - IV still necessary for blood transfusions, mittens okay if she pulls on them (11) PAF (paroxysmal atrial fibrillation): - currently not on anticoagulation or rate control agent - in sinus rhythm on exam (12) Hypernatremia: - Na 149 on admission, improved to 144 today - IVF d/c as patient was pulling out IV. Tolerating PO intake well (13) Elevated troponin I level: - Troponin increased to 0.07. - Likely secondary to demand ischemia in high-output state - will not trend any further, as increase would not prompt any intervention. If patient were to go to label fuser tender for stent placement, she would likely not tolerate dual-antiplatelet therapy in post-operative course due to ongoing pancytopenia and current lower GI bleed. Even if managed medically, heparin drip would be contraindicated in setting of acute lower GI bleed and thrombocytopenia. Dispo: med/surg Diet: regular, soft texture, was refusing food today DVT ppx: contraindicated due to thrombocytopenia, possible GI bleed and was requiring blood transfusions here Code: DNR/DNI Admission and Anticipated Discharge Date Admission Date: April 20, 2020 Supervising Physician Co-Signing Physician Notes Attending attestation Pt seen and examined in concert with Dr. Espinoza. In agreement with the documented findings as noted in the resident documentation with any exceptions or additions as noted here. Patient in good spirits today. On further discussion of course of care, patient is able to appropriately discuss what would happen if we stopped her frequent transfusions at this point, and still insists that this is what she would like. Palliative care consultation in agreement with same and in discussion with family. On examination, S1/S2 nl RRR no MCG. CTAB. Abd NT/ND BS+ve. Resolved epistaxis from previous Pancytopenia w/ CLL - patient declines further transfusion. Oncology consultation appreciated - bone marrow would be next step and patient declines. Palliative consultation appreciated and is open to hospice care. Neutropenic sepsis - likely urinary source - tolerating cefdinir PO, to complete course. GI bleed - no overt melena/hematochezia reported. not safe for scope, continued downtrending hgb and deferring further surveillance labs. Pending hospice. Else see resident documentation as noted. Subjective No acute events overnight. Patient refusing blood draws in AM. She indicated she knows she would without further treatment but wants to go home and be comfortable. Review of Systems Review of Systems: All systems reviewed & are unremarkable except as noted in HPI & below Physical Exam Constitutional: + frail appearing; no acute distress Eyes: PERRL, conjunctivae normal, anicteric sclerae ENMT: external ear and nose normal, oropharynx normal Nose: + epistaxis Mouth: no oral mucosal abnormality Neck: normal visual inspection and trachea midline Respiratory: normal respiratory effort, lungs clear to auscultation Auscultation: no crackles Cardiovascular: Rate/Rhythm: regular rate and regular rhythm Heart Sounds: normal S1, normal S2 and + murmur (systolic ejection murmur) Gastrointestinal (Abdomen): normal bowel sounds, soft, nontender, no hepatosplenomegaly Skin: no rashes, warm and dry + ecchymosis (bilateral forearms) Psychiatric: Orientation: oriented to person and oriented to place (thought she was in [facility]) Results & Data Results & Data ([facility]) Vital Signs (Past 12 Hours) Vital Signs Temp Pulse Resp BP Pulse Ox 04/26/20 15:06 36.5 C 71 18 162/70 H 97 04/26/20 07:25 36.7 C 68 18 185/79 H 97 Resident Activity Tracking Resident Involvement: Resident Care Provided Care Provided: Adult Hospital Medicine (1) Anemia Anemia type: bone marrow failure Bone marrow failure anemia type: pancytopenia, other drug-induced Qualified Code(s): D61.811 - Other drug- induced pancytopenia (2) Sepsis Sepsis acute organ dysfunction status: unspecified Sepsis type: sepsis due to unspecified organism Qualified Code(s): A41.9 - Sepsis, unspecified organism
[2020-04-27 07:20] VITALS: BP 158/66; PULSE 71; TEMP 98.1; O2SAT 98
--- NOTE | 2020-04-27 07:49 | Discharge Summary ---
Date of Service April 27, 2020 Admission HPI Per Admitting Provider The patient is an 89-year-old female resident of [facility], with a past medical history including sepsis, GI bleed, paroxysmal atrial fibrillation, CKD, bilateral lower extremity edema, atypical chest pain, syncope, urinary incontinence and pancytopenia. She presented with the above symptoms as noted. Upon arrival to the ED, the patient was quite agitated, and required Ativan IV for sedation. Of note, the patient had reportedly been scheduled for a transfusion tomorrow, 04/22. Orders were written for transfusion and 2 units PRBCs, due to medical necessity, and countersigned by Drs. Paige and Liz valera. Admission Exam Per Admitting Provider The patient is agitated, normocephalic and atraumatic, lying in bed and in no acute distress. HEENT--PERRL, EOMI, mucous membranes and oropharynx dry. Neck--supple. No JVD. No bruits. Thyroid normal, trachea midline, no adenopathy. Heart--normal S1 and S2. No murmurs, rubs or gallops. Lungs--clear bilaterally, no respiratory distress, no accessory muscle use. Abdomen--normal bowel sounds and soft. Nontender. Nondistended. Extremities--no cyanosis or clubbing. No edema. There are good distal pulses b/l. Dermatologic--normal skin turgor, normal color, no abnormal lymph nodes, no rash. Neurologic--cranial nerves II through XII grossly intact. Rheumatologic--normal range of motion. Psychiatric--agitated. Principal Diagnosis Urinary Tract Infection Discharge Exam Constitutional + frail appearing; no acute distress Eyes PERRL, conjunctivae normal, anicteric sclerae ENMT external ear and nose normal, oropharynx normal Nose: + epistaxis Mouth: no oral mucosal abnormality Neck normal visual inspection and trachea midline Respiratory normal respiratory effort, lungs clear to auscultation Auscultation: no crackles Cardiovascular Rate/Rhythm: regular rate and regular rhythm Heart Sounds: normal S1, normal S2 and + murmur (systolic ejection murmur) Gastrointestinal (Abdomen) normal bowel sounds, soft, nontender, no hepatosplenomegaly Skin no rashes, warm and dry + ecchymosis (bilateral forearms) Psychiatric Orientation: oriented to person and oriented to place (thought she was in [facility]) Discharge Data Allergies Allergy/AdvReac Type Severity Reaction Status Date / Time garlic Allergy Severe "raw Verified 05/08/17 11:58 garlic" airway closes shellfish derived Allergy Severe FISH = Verified 05/08/17 11:58 "HIVES" AND "CANT BREATH" Macrolide Antibiotics Allergy Intermediate ZITHROMAX-H Verified 05/08/17 11:58 GUS amitriptyline Allergy Unknown _ Verified 05/08/17 11:58 aspirin Allergy Unknown UNKNOWN Verified 05/08/17 11:58 Cephalosporins Allergy Unknown UNKNOWN Verified 05/08/17 11:58 Fish Containing Products Allergy Unknown UNKNOWN- Verified 05/08/17 11:58 "SEAFOOD" omega-3 acid ethyl esters Allergy Unknown hives Verified 05/08/17 11:58 Penicillins Allergy Unknown UNKNOWN Verified 05/08/17 11:58 red dye Allergy Unknown Unknown rxn Verified 05/08/17 11:58 NSAIDS (Non-Steroidal AdvReac Severe NO NSAIDS Verified 05/08/17 11:58 Anti-Inflamma PER DARRIAN WISE 12/27/11 metoclopramide AdvReac Intermediate PARKINSON'S Verified 05/08/17 11:58 RIGIDITY AND LIP TREMOR erythromycin base AdvReac Unknown HEADACHE,NA Verified 05/08/17 11:58 USEA Tricyclic Antidepressants Allergy Unknown _ Uncoded 05/08/17 11:58 Consultations 04/20/20 22:11 ED Decision to Admit Stat 04/20/20 23:37 Consult Case Management - Discharge Planning Routine 04/25/20 09:23 Consult Palliative Care Routine 04/25/20 09:56 Consult Oncology Routine Hospital Course (1) Fever and neutropenia: Mrs. Holloway is an 89 yo woman with a PMHx of chronic lymphocytic leukemia who was admitted 04/21/20 septic with neutropenic fever. Patient has been evaluated by oncology, but no treatment was recommended given overall frailty. The source of her infection was found to be a urinary tract infection with e.coli (resistant to bactrim). She was started on IV ceftriaxone and eventually transitioned to oral Cefdinir. Patient received several pRBC and platelet transfusions over hospital stay but denied any further blood products. Palliative care consulted: patient and POA have decided they would like her to be sent back to [facility] with hospice services. - WBC 0.07, ANC 0.09 - No fevers since arrival - source of infection appears to be urinary tract: culture grew E. coli sensitive to Ceftriaxone (resistant to bactrim); transitioned to PO renally- dosed cefdinir. Continue for 7 days after discharge. (2) Sepsis: - SIRS criteria met on admission - patient was volume resuscitated and started on IV antibiotics - afebrile, hemodynamically stable by time of discharge - source is UTI as above; treating with cefdinir (there is resistance to bactrim) (3) Anemia: - Hemoglobin 5.7 on admission - etiology is therefore likely due to production (bone marrow suppression from underlying malignancy) and loss (GI bleed) - patient was transfused with 3 total units of pRBCs, after which she said she refused any further blood transfusions (see palliative care note) (4) Hematochezia: - 1 episode occurred early in hospital stay - patient without upper GI symptoms (nausea/vomiting, epigastric pain) - suspect secondary to a lower GI bleed (diverticular or AVM) rather than upper etiology - while colonoscopy would shed light on exact cause, it is unclear if a procedure is safe with ongoing pancytopenia, and even if it were, an intervention would almost certainly cause additional blood loss and worsen her current anemia. There is a small chance a malignancy could be identified and resected at a later date (when acute anemia resolves), but considering patient's overall frailty, probability of tolerated a hemicolectomy seems low, and current chemotherapy regimen is proving nearly all she can physiology stand (5) Thrombocytopenia: - Platelets at 15k on 04/21; patient was transfused a total of 2 units throughout hospital stay before refusing further blood products - 1 episode of hematochezia as above - nosebleeds on exam (6) UTI (urinary tract infection): - urine culture growing e.coli sensitive to ceftriaxone (resistant to Bactrim) - previously deescalated abx from cefepime to ceftriaxone, now on renally dosed of cefdinir, 300mg, once daily - currently on day 7 of antibiotics (7) Tachypnea: - resolved. - Normal RR today (8) Elevated uric acid in blood: - uric acid level 9 - possibly secondary to tumor lysis syndrome - no known history of gout - Started on allopurinol 300mg PO BID (9) CKD (chronic kidney disease), stage IV: - appears at baseline (10) Agitation: - lorazepam prn (11) PAF (paroxysmal atrial fibrillation): - currently not on anticoagulation or rate control agent - in sinus rhythm on exam (12) Hypernatremia: - Na 149 on admission, improved to normal levels with IV hydration (13) Elevated troponin I level: - Troponin increased to 0.07. - Likely secondary to demand ischemia in high-output state - will not trend any further, as increase would not prompt any intervention. If patient were to go to laborer [facility] for stent placement, she would likely not tolerate dual-antiplatelet therapy in post-operative course due to ongoing pancytopenia and current lower GI bleed. Even if managed medically, heparin drip would be contraindicated in setting of acute lower GI bleed and thrombocytopenia. Total Time Total Time Spent Total Time Spent (In Minutes): see attending attestation Discharge Plan Discharge Items Patient Disposition: Hospice - Medical Facility Reason For Visit: ANEMIA,PANCYTOPENIA Discharge Diagnosis: Urinary tract infection Activity: Resume your previous activity Non-emergency contact: Primary Care Provider Call non-emergency contact if: your pain is not controlled Follow-up/Referrals: [facility] [Primary Care Provider] - Diet: Regular Addtl Attending Provider Instructions: Mrs. Holloway is an 89 yo woman with a PMHx of chronic lymphocytic leukemia (upon clarification with oncology, not undergoing treatment) who was admitted 04/21/20 septic with neutropenic fever. The source of her infection was found to be a urinary tract infection with e.coli, on cefdinir. Oncology formally consulted, recommending no treatment for current blood malignancies due to patient's overall frailty. Patient received several pRBC and platelet transfusions over hospital stay but denied any further blood products. Palliative care consulted: patient and POA have decided they would like her to be sent back to [facility] with hospice services. Nursing instructions: Chronic Lymphocytic Leukemia - oncology recommended no treatment Sepsis secondary to urinary tract infection - patient hemodynamically stable by the time of discharge, afebrile - urine culture grew e.coli resistant to bactrim - continue renally-dosed cefdinir 300mg, PO, daily for 7 more days (14 day total course) Elevated Uric Acid level - level elevated to 9 while in hospital - patient started on allopurinol 300mg, PO, bid. Pending Studies at Discharge: No Stand-Alone Forms: My [facility] Skilled Items Patient informed of condition?: Yes DNR: Yes Discharge Level of Care: Skilled Communicable Disease: No Discharge Prognosis: Deteriorating Lines: None Urinary Catheter: No Medications and DC Order Prescriptions: New allopurinol 300 mg Tablet 300 mg PO BID 30 Days Qty: 60 RF: 0 cefdinir 300 mg Capsule 300 mg PO DAILY 7 Days Qty: 7 RF: 0 Discontinued acetaminophen 325 mg Tablet 650 mg PO TID RF: 0 cranberry 450 mg Tablet 450 mg PO DAILY RF: 0 folic acid 1 mg Tablet 1 mg PO DAILY RF: 0 lisinopril 20 mg Tablet 20 mg PO DAILY RF: 0 Bengay Ultra Strength(menthol) 5 % Adhesive Patch,Medicated 1 patch TOPICAL DAILY RF: 0 lisinopril 20 mg Tablet 20 mg PO DAILY RF: 0 Discharge Orders: Discharge Order (Routine); Ordered 04/27/20 Ordered By: Tri Segura/Other Patient Handouts: A1C Admission Data Admit Date/Time: 04/20/20 22:52 Attending Provider: Bradly Dc Admit Provider: Juwan Nair Primary Care Provider: [facility] Other Providers: [facility], ; Juwan Nair ; Keerthi Garcia ; Addison Goss V. Supervising Physician Co-Signing Physician Notes Attending attestation Pt seen and examined in concert with Dr. Espinoza. In agreement with the documented findings as noted in the resident documentation with any exceptions or additions as noted here. Patient without acute complaint beyond fatigue, tolerating breakfast on evaluation. Still endorses understanding of course of care and desire for home w/ hospice. On examination, S1/S2 nl RRR no MCG. CTAB. Abd NT/ND BS+ve. Pancytopenia w/ CLL - Hospice for comfort. PRN medications and pain control transitioned per hospice Neutropenic sepsis - likely urinary source - tolerating cefdinir PO, to complete course Else see resident documentation as noted. Resident Activity Tracking Resident Involvement: Resident Care Provided Care Provided: Adult Hospital Medicine
[2020-04-27] MEDS: allopurinoL 300 MG TAB PO SCH (08:42)
[2020-04-27] MEDS: FOLIC ACID 1 MG TAB PO SCH (08:58)
[2020-04-27] MEDS: CEFDINIR 300 MG CAP PO SCH (08:58)
[2020-04-27] MEDS: ACETAMINOPHEN 325 MG TAB PO SCH (09:00)
[2020-04-27] MEDS: INSULIN ASPART 100 UNITS/ML 3 ML PEN SC SCH ×2 (09:04→12:57)
--- NOTE | 2020-04-27 12:54 | Palliative Care Progress Note ---
Date of Service April 27, 2020 Assessment & Plan (1) Goals of care, counseling/discussion: Patient is an 89-year-old female, resident at the [facility] for approximately 14 years who was sent to [facility] on 04/20 after a large amount of melena, temp 100.8, and increased respiratory rate. Patient was admitted due to fevers and pancytopenia. Past medical history is significant for CKD stage IV, diabetes, hypertension, GERD, lymphoid leukemia with pancytopenia, paroxysmal A. fib. Patient was started on IV antibiotics-was transitioned to oral cefdinir for an E. coli UTI, blood cultures negative. Patient has required multiple transfusions-remains pancytopenic, hemoglobin was 5.7 on admission -hemoglobin this a.m. 6.7-patient has received several units of red blood cells, hemoglobin 5.7-8.6-has decreased again within a few days, hemoglobin this morning was 6.7 - - patient receiving blood transfusion currently. On admissions platelets were 18K, she was transfused platelets-they bumped to 40K, dropped to 22 K within 24 hours and they are 14K on labs drawn this a.m. -Patient seen and examined in room 289, no friends or family at bedside. -patient sitting upright in NAD. She does appear to have diaphragmatic breathing at this time. -Patient, again has agreed to transition to [facility] [employer] upon her return to [facility]. -Patient due to return to [facility] today at 1430. They will get Hospice on board when she arrives. -I ordered Roxanol 5 mg po Q4 PRN should she require for SOB prior to leaving the hospital. -PPS 30% -Palliative care will sign off. Should our services be rendered, please contact us. 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 Pt denies pain, but does appear SOB Review of Systems Review of Systems: Patient denies fever, chills, chest pain, shortness of breath, or abdominal pain. Positive for ecchymosis Physical Exam Constitutional: + disheveled and cooperative Respiratory: + uses accessory muscles (sitting upright, some diaphragmatic muscle use ) Gastrointestinal (Abdomen): normal bowel sounds, soft, nontender, no hepatosplenomegaly Skin: normal turgor and + ecchymosis Psychiatric: A+Ox3, euthymic affect Results & Data ([facility]) Vital Signs (Past 12 Hours) Vital Signs Temp Pulse Resp BP Pulse Ox 04/27/20 07:17 36.7 C 71 16 158/66 H 98 PG Care Time/CCT Total # of Minutes Spent Total Time Spent with Patient: Total time spent is greater than 50% in coordination of care (as documented) at patient's floor/unit and/or counseling patient: 35 Coding Level of Care Code 17974 Subseq Hosp Care Lvl 3 Diagnoses Goals of care, counseling/discussion Z71.89 Lymphoid leukemia C91.90 Pancytopenia D61.818 GI bleed K92.1 GI bleed type/associated pathology: melena CKD (chronic kidney disease), stage IV N18.4 Time Spent (min) 35 Time Spent Midlevel Total time spent 35 minutes with > 50% of that time spent assessing the patient, discussing goals of care with IDT (1) GI bleed GI bleed type/associated pathology: melena Qualified Code(s): K92.1 - Melena
[2020-04-27] MEDS ORDERED: MoRPHine SULFATE 5 MG/0.25 ML UDP PO PRN (13:30)
== END 2020-04-27 14:19 | disposition hospice, inpatient (51) | DRG 871 ==
LOC: ED 20:04 → 2S 22:52 → SUATTDRO 22:52 → 2S 23:21 → 2N 04-23 15:38 → 3W 04-26 17:51